=== PATIENT | male | born 1960 | race African-American/Black ===

== ENCOUNTER → 2017-07-14 14:29 | Outpatient (CLI) | payer BC, SELFPAY ==
--- NOTE | 2017-07-14 14:34 | EKG12_ITS ---
Test Reason : PREOP Blood Pressure : / mmHG Vent. Rate : 064 BPM Atrial Rate : 064 BPM P-R Int : 192 ms QRS Dur : 104 ms QT Int : 410 ms P-R-T Axes : 051 -47 044 degrees QTc Int : 422 ms Sinus rhythm with sinus arrhythmia with Premature ventricular complexes or Fusion complexes Left axis deviation Inferior infarct , age undetermined Abnormal ECG Confirmed by FREDRICK STOCKTON MD ([id number]), fashion editor MAYDA GLASS ([id number]) on 07/15/2017 3:30:55 PM Referred By: ASHLEY RAMSAY Confirmed By:FREDRICK STOCKTON MD
== END ==
PROVIDERS: Family Provider Internal Medicine; PCP Internal Medicine; Visit Provider Nurse Practitioner Family
DX: Z01.818 Encounter for other preprocedural examination (principal); I10 Essential (primary) hypertension; Z79.899 Other long term (current) drug therapy
CPT/HCPCS: 93005

== ENCOUNTER → 2017-07-15 06:44 | Outpatient (CLI) | payer BC, SELFPAY ==
[2017-07-15 08:48] LABS: Anion Gap 9 (5-15); BUN 17 mg/dL (7-18); BUN/Creat Ratio 16.5 RATIO (10-20); Calcium,Total 8.9 mg/dL (8.5-10.1); Chloride 105 mmol/L (98-107); Creatinine, Serum 1.03 mg/dL (0.70-1.30); EST Glomerular Filtration Rate 79 mL/min (>60); Est Glom Filt Rate - Afr Amer 95 mL/min (>60); Glucose 106 mg/dL (74-106); Potassium 3.6 mmol/L (3.5-5.1); Sodium Level 140 mmol/L (136-145)
== END ==
PROVIDERS: Family Provider Internal Medicine; PCP Internal Medicine; Visit Provider Nurse Practitioner Family
DX: E87.6 Hypokalemia (principal)
CPT/HCPCS: 36415; 80048

== ENCOUNTER → 2017-09-09 15:43 | Outpatient (CLI) | payer BC, SELFPAY ==
[2017-09-09 16:55] LABS: PSA,Total - Annual Screen 9.46 ng/mL (0.00-4.00)
== END ==
PROVIDERS: Family Provider Internal Medicine; PCP Internal Medicine
DX: R97.20 Elevated prostate specific antigen [PSA] (principal)
CPT/HCPCS: 36415; 84153; G0103

== ENCOUNTER → 2018-05-20 08:02 | Outpatient (CLI) | payer BC, SELFPAY ==
[2017-10-11 15:37] VITALS: BMI 35.1
== END ==
PROVIDERS: Family Provider Internal Medicine; PCP Internal Medicine
DX: R97.20 Elevated prostate specific antigen [PSA] (principal)
CPT/HCPCS: 36415; 84153

== ENCOUNTER → 2018-05-27 10:17 | Outpatient (CLI) | payer BC, SELFPAY ==
[2018-05-23 09:24] VITALS: BMI 35.9
[2018-05-27 12:09] LABS: AST(SGOT) 19 U/L (15-37); Alanine Aminotransfer ALT/SGPT 28 U/L (16-61); Albumin, Serum 3.9 g/dL (3.2-5.0); Alkaline Phosphatase 67 U/L (45-117); Bilirubin, Direct 0.12 mg/dL (0.00-0.30); Cholesterol 187 mg/dL (200); Globulin 3.8 g/dL (2.2-4.2); High Density Lipoprotein 38 mg/dL; Protein, Total 7.7 g/dL (6.4-8.2); Triglycerides 148 mg/dL; Very Low Density Lipoprotein 30 mg/dL (5-40)
== END ==
PROVIDERS: Family Provider Internal Medicine; PCP Internal Medicine; Referring Provider Internal Medicine Cardiovascular Disease; Visit Provider Internal Medicine Cardiovascular Disease
DX: E78.5 Hyperlipidemia, unspecified (principal)
CPT/HCPCS: 36415; 80061; 80076

== ENCOUNTER → 2018-05-30 12:21 | Outpatient (CLI) | payer BC, SELFPAY ==
[2018-05-23 09:24] VITALS: BMI 35.9
--- NOTE | 2018-05-30 12:23 | STE_ITS ---
Reason For Study: Dyspnea, HTN Stress Results Protocol: Félix Protocol Maximum Predicted HR: 161 bpm Target HR: 137 bpm % Maximum Predicted HR: 96 % DurationHeart Rate Stage (mm:ss) (bpm) BP Comment Baseline 70 124/88No Chest Pain Félix Protocol Stage I 3:00 115 136/74No Chest Pain Félix Protocol Stage II 3:00 142 172/78No Chest Pain; Mild Dyspnea Félix Protocol Stage III 3:00 155 180/76No Chest Pain; Moderate Dyspnea Félix Protocol Stage IV 0:03 142 / No Chest Pain; Moderate Dyspnea Recovery 96 110/70No Chest Pain Stress Duration: 9:03 mm:ss Maximum Stress HR: 155 bpm METS: 10 Baseline Echocardiogram Findings The estimated ejection fraction is 65 %. Stress Echo Wall motion Data Resting WM Intermediate WM Stress WM Resting Wall Motion Wall Motion Stress No regional wall motion No regional wall motion abnormalities noted. abnormalities noted. EKG Data Normal intervals are noted. The patient exercised according to the regular Félix protocol for a total duration of 9:03. The maximum heart rate attained was 160 beats per minute. This was 99% of maximum predicted heart rate. The patient exercised into stage 4 of the Félix protocol. During stress, there were no ST or T wave changes noted to suggest ischemia. No clinical angina was noted. Interpretation Summary The estimated ejection fraction is 65 %. Normal, adequate, treadmill echocardiogram. Negative for ischemia by EKG and echocardiographic criteria. No anginal symptoms noted. Appropriate blood pressure response to exercise. Average exercise capacity for age. Patient did however develop frequent PVCs during exercise and into recovery. Two ventricular couplets noted. Ventricular trigeminy noted as well. Test terminated due to dyspnea. Final LVEF is 75%. No complications. Ordering Physician: Patrick Carnes Referring Physician: Patrick Carnes Performed By: Johanna Marte RDCS
== END ==
PROVIDERS: Family Provider Internal Medicine; PCP Internal Medicine; Referring Provider Internal Medicine Cardiovascular Disease; Visit Provider Internal Medicine Cardiovascular Disease
DX: I10 Essential (primary) hypertension (principal); I31.3 Pericardial effusion (noninflammatory); R06.00 Dyspnea, unspecified
CPT/HCPCS: 93017; 93350

== ENCOUNTER → 2018-06-02 09:24 | Outpatient (CLI) | payer BC, SELFPAY ==
[2018-05-23 09:24] VITALS: BMI 35.9
--- NOTE | 2018-06-02 09:35 | RAD_ITS ---
STUDY: X-RAY CHEST REASON FOR EXAM: Male, 57 years old. Short of breath. Abnormal stress test. TECHNIQUE: Single AP portable view of the chest. COMPARISON: 02/06/2014. FINDINGS: The lungs are clear and expanded. There is no demonstrated pleural abnormality. Normal size heart. Normal mediastinum and gelacio. Normal visualized pulmonary arteries. Normal visualized aortic arch and descending thoracic aorta. Normal visualized thoracic spine. Normal visualized ribs, clavicles, and shoulders. There is no demonstrated abnormality of the visualized soft tissue structures of the upper abdomen. RAD/Chest PA and Lateral IMPRESSION: Normal x-ray examination of the chest. Electronically Signed: Santiago Mg MD at 18:39 EST , Service support ,
[2018-06-02 10:05] LABS: Absolute Lymphocyte Count 2.46 X10^3/ul (0.83-4.51); Absolute Neutrophil Count 6.4 X10^3/uL (2.0-7.7); Basophil# 0.04 X10^3/uL; Basophil% 0.4 % (0-1); Eosinophil# 0.14 X10^3/uL; Eosinophils% 1.4 % (0-5); Hematocrit 41.1 % (40-54); Hemoglobin 13.4 g/dl (13.0-16.5); Lymphocyte # 2.46 X10^3/ul (4.0); Lymphocyte % 24.8 % (19-41); Mean Corp Hgb Conc 32.6 g/gl (32-36); Mean Corpuscular Hgb 27.7 pg (27.0-32.0); Mean Corpuscular Volume 85.1 fL (80-94); Mean Platelet Vol. 9.7 fl (6.2-12.0); Monocyte# 0.85 X10^3/uL; Monocyte% 8.6 % (0-10); Neutrophil # 6.38 X10^3/uL (2.7-7.7); Neutrophil % 64.5 % (47-70); Platelet Count 305 K/mm3 (150-450); RBC Distribution Width CV 14.2 % (11.6-14.6); RBC Distribution Width SD 44.3 fl (35.1-43.9); Red Blood Count 4.83 M/mm3 (4.6-6.2); White Blood Count 9.9 K/mm3 (4.4-11.0)
[2018-06-02 10:07] LABS: POSITIVE COUNT NO; POSITIVE DIFFERENTIAL NO; POSITIVE MORPHOLOGY NO
[2018-06-02 10:24] LABS: International Normalized Ratio 1.1
[2018-06-02 10:25] LABS: Partial Thromboplast Time 34.1 Seconds (24.1-36.2)
[2018-06-02 10:26] LABS: Anion Gap 9 (5-15); BUN 11 mg/dL (7-18); BUN/Creat Ratio 9.9 RATIO (10-20); Chloride 105 mmol/L (98-107); Creatinine, Serum 1.11 mg/dL (0.70-1.30); EST Glomerular Filtration Rate 72 mL/min (>60); Est Glom Filt Rate - Afr Amer 87 mL/min (>60); Glucose 99 mg/dL (74-106); Potassium 3.5 mmol/L (3.5-5.1); Sodium Level 141 mmol/L (136-145)
== END ==
PROVIDERS: Family Provider Internal Medicine; PCP Internal Medicine; Referring Provider Nurse Practitioner Family; Visit Provider Nurse Practitioner Family
DX: Z01.810 Encounter for preprocedural cardiovascular examination (principal); I49.3 Ventricular premature depolarization; R94.39 Abnormal result of other cardiovascular function study; R06.02 Shortness of breath
CPT/HCPCS: 36415; 71046; 80048; 85025; 85610; 85730

== ENCOUNTER 2018-06-13 08:03 | Day surgery (SDC) | payer BC, SELFPAY ==
[2018-05-23 09:24] VITALS: BMI 35.9
[2018-06-10 13:00] VITALS: BMI 35.9
--- NOTE | 2018-06-13 09:48 | CL.D_ITS ---
Patient Name: MARY CARBALLO Study Date: 06/13/2018 Performing: Patrick Carnes MD Ht: 70.86 inches 180 cm : 1960 Wt: 257.94 lbs 117 kg Age: 57 Gender: male BSA: 2.35 PROCEDURE(S) PERFORMED [id number]/LV CLINICAL PROFILE AND INDICATIONS Indications: Suspected CAD, Cardiac Arrythmia, Evaluation for Exercise Clearance Heart Failure: None Stress/Imaging Stress Echocardiogram: Yes Result: NegativeStress Echocardiogram: Negative Angina Classification Anginal Classification w/in 2 Weeks: No symptoms CAD Presentations: Other: Dyspnea on exertion, PVCs. Comorbidities/Risk Factors: Hypertension Dyslipidemia CONCLUSIONS Normal LV size, wall motion,and systolic function Non obstructive coronary arteries RECOMMENDATIONS Risk factor modification ASA Indefinitely Management as per referring Communications Coordinator D/c plavix, start lipitor 20mg po qhs, PFTs. Doubtful pericardial constriction given pericardial effusion event was over 5 years ago and no eviden ce of pericardial thickening on 2D echo. Manual sheath removal. DESCRIPTION OF PROCEDURE The patient arrived to the procedure lab. The risks and benefits of the procedure as well as a full d escription of our services here and current unavailability of surgical backup were fully explained to the patient and/or their significant other prior to the catheterization. The Timeout was completed, verifying the correct patient and procedure. The patient's procedural site was prepped and draped in the usual fashion. Local anesthetic was given subcutaneously to right groin region with Lidocaine 2%. Using a modified Seldinger technique, arterial access was obtained via the right femoral artery, a 4 Fr sheath was inserted Left Coronary Artery selective angiography was performed in multiple views us ing a 4 Fr. JL5 catheter. Right Coronary Artery selective angiography was then performed in multiple views using a 4 Fr. 3DRC catheter. Left Ventriculography was performed in SMITH projection using a 4 Fr . Pigtail catheter. LV to AO pullback pressures were then recorded.The arterial sheath was pulled and manual compression applied until hemostasis is achieved. CORONARY ANGIOGRAPHY DOMINANCE: Right Dominant LEFT MAIN: Angiographically normal LEFT ANTERIOR DECENDING ARTERY: MID LAD: Mild luminal irregularities less than 30% CIRCUMFLEX ARTERY: Angiographically normal RIGHT CORONARY ARTERY: Angiographically normal RT PDA: Proximal - Angiographically normal COMPLICATIONS No Complications PROCEDURE MEDICATIONS Oxygen: 2 L/min via nasal cannula SUMMARY OF HEMODYNAMIC DATA Time AIR REST ECG 08:29:20 AO 125/67 (88) SA 09:28:56 LV 133/-12, 14 09:35:34 LV 127/-13, 17 09:35:40 LV 132/-14, 17 09:36:42 LV 135/-11, 23 09:36:49 LVp 142/-11, 19 09:36:57 AOp 155/79 (109) 09:37:02 Signed By Patrick Carnes MD On 06/13/2018 9:48:18 AM Patrick Carnes MD
== END 2018-06-13 14:15 | disposition home or self-care (01) ==
LOC: CLSP 08:04
PROVIDERS: Family Provider Internal Medicine; PCP Internal Medicine; Referring Provider Internal Medicine Cardiovascular Disease; Visit Provider Internal Medicine Cardiovascular Disease
DX: R06.09 Other forms of dyspnea (principal); I49.3 Ventricular premature depolarization; I10 Essential (primary) hypertension; E78.5 Hyperlipidemia, unspecified; I31.3 Pericardial effusion (noninflammatory); M54.9 Dorsalgia, unspecified; G89.29 Other chronic pain; N40.0 Benign prostatic hyperplasia without lower urinary tract symptoms; Z79.82 Long term (current) use of aspirin; Z79.899 Other long term (current) drug therapy; Z87.891 Personal history of nicotine dependence
CPT/HCPCS: 93458; J7040; C1769; C1894; Q9967

== ENCOUNTER → 2018-06-17 07:52 | Outpatient (CLI) | payer BC, SELFPAY ==
[2018-06-10 13:00] VITALS: BMI 35.9
--- NOTE | 2018-06-19 09:58 | PFT ---
INTRODUCTION: The patient is a 58-year-old male that presents for pulmonary function studies secondary to a diagnosis of dyspnea on exertion. Respiratory therapy reports good patient effort. Bronchodilators were used during testing. INTERPRETATION: Forced expiration spirometry demonstrates no evidence of a large airways obstructive ventilatory defect. There was no significant response to aerosolized bronchodilators, based upon strict ATS criteria. Spirograms are of good quality and plateau normally. The respiratory flow volume loop appears normal. Body plethysmography was performed and reveals lung volumes to be within normal limits. Diffusing capacity by single breath CO is also within normal limits at 93% of predicted. IMPRESSION: Grossly normal pulmonary function studies.
== END ==
PROVIDERS: Family Provider Internal Medicine; PCP Internal Medicine; Referring Provider Internal Medicine Cardiovascular Disease; Visit Provider Internal Medicine Cardiovascular Disease
DX: R06.09 Other forms of dyspnea (principal)
CPT/HCPCS: 94060; 94726; 94729

== ENCOUNTER → 2019-01-17 07:32 | Outpatient (CLI) | payer BC, SELFPAY ==
[2018-06-10 13:00] VITALS: BMI 35.9
[2019-01-17 09:47] LABS: AST(SGOT) 17 U/L (15-37); Alanine Aminotransfer ALT/SGPT 29 U/L (16-61); Albumin, Serum 3.8 g/dL (3.2-5.0); Alkaline Phosphatase 77 U/L (45-117); Bilirubin, Direct 0.11 mg/dL (0.00-0.30); Cholesterol 201 mg/dL (200); Globulin 3.8 g/dL (2.2-4.2); High Density Lipoprotein 41 mg/dL; Protein, Total 7.6 g/dL (6.4-8.2); Triglycerides 186 mg/dL; Very Low Density Lipoprotein 37 mg/dL (5-40)
== END ==
PROVIDERS: Family Provider Internal Medicine; PCP Internal Medicine; Referring Provider Internal Medicine Cardiovascular Disease; Visit Provider Internal Medicine Cardiovascular Disease
DX: I25.10 Atherosclerotic heart disease of native coronary artery without angina pectoris (principal); E78.5 Hyperlipidemia, unspecified
CPT/HCPCS: 36415; 80061; 80076

== ENCOUNTER → 2019-01-27 14:47 | Outpatient (CLI) | payer BC, SELFPAY ==
[2019-01-19 15:14] VITALS: BMI 35.9
--- NOTE | 2019-01-27 14:50 | ECHOD_ITS ---
Reason For Study: PHTN Procedure This was a 2D Doppler, Color Flow transthoracic echocardiogram. Exam performed in department. Left Ventricle Mild concentric left ventricular hypertrophy. The estimated ejection fraction is 65 %. Normal diastology for age. No regional wall motion abnormalities noted. Right Ventricle Normal size and thickness. Normal systolic function. Atria Normal left atrium. Normal right atrium. Normal atrial septum. Mitral Valve The mitral valve is structurally normal. No prolapse or stenosis seen. Tricuspid Valve Normal tricuspid valve. Trivial tricuspid valve insufficiency. Right ventricular systolic pressure estimated to be 23 mmHg. Aortic Valve Normal aortic valve. Trisinus/trileaflet aortic valve. Pulmonic Valve Normal pulmonic valve. Great Vessels Normal aortic root. Normal arch. Normal inferior vena cava. Inferior vena cava collapse with sniff. Pericardium/Pleural No pericardial effusion. MMode/2D Measurements & Calculations LVIDd: 5.0 cm IVSd: 1.4 cm Ao root diam: 3.5 cm LVIDs: 3.2 cm LVPWd: 1.2 cm RVDd: 4.3 cm FS: 35.4 % LAV(MOD-bp): 48.7 ml LVAd ap4: 31.4 cm2 SV(MOD-sp4): 50.6 ml LAV(MOD-bp) Indexed: 21.1 ml/m2 EDV(MOD-sp4): 93.2 ml LAV(MOD-sp2): 48.8 ml EDV(sp4-el): 95.4 ml LAV(MOD-sp4): 48.9 ml LVAs ap4: 19.2 cm2 ESV(MOD-sp4): 42.6 ml ESV(sp4-el): 42.6 ml EF(MOD-sp4): 54.3 % EF(sp4-el): 55.3 % SV(sp4-el): 52.7 ml LA A4 area: 17.5 cm2 LA dimension(2D): 3.9 cm RA A4 area: 10.6 cm2 Doppler Measurements & Calculations MV E max ben: 61.4 cm/sec Lat Peak E' Ben: 10.6 cm/sec Med Peak E' Ben: 9.2 cm/sec MV A max ben: 67.6 cm/sec E/E' lat: 5.8 E/E' med: 6.7 MV E/A: 0.91 Ao V2 max: 115.2 cm/sec LV V1 max: 102.2 cm/sec PA V2 max: 98.2 cm/sec Ao max P.3 mmHg LV V1 max P.2 mmHg Ao V2 mean: 91.6 cm/sec Ao mean P.5 mmHg Ao V2 VTI: 24.2 cm TR max ben: 213.3 cm/sec TR max P.2 mmHg Interpretation Summary The estimated ejection fraction is 65 %. Normal diastology for age. Mild concentric left ventricular hypertrophy. Trivial tricuspid valve insufficiency. Right ventricular systolic pressure estimated to be 23 mmHg. In comparison to echo report dated 02/22/2014, LV function has remianed the same and preicardial effusion has completely resolved. Ordering Physician: Patrick Carnes Referring Physician: Fatuma Jung Performed By: Ayleen Michelle, WANDA, RVT
== END ==
PROVIDERS: Family Provider Internal Medicine; PCP Internal Medicine; Referring Provider Internal Medicine Cardiovascular Disease; Visit Provider Internal Medicine Cardiovascular Disease
DX: I27.20 Pulmonary hypertension, unspecified (principal); I25.10 Atherosclerotic heart disease of native coronary artery without angina pectoris; I31.3 Pericardial effusion (noninflammatory); G47.33 Obstructive sleep apnea (adult) (pediatric)
CPT/HCPCS: 93306

== ENCOUNTER → 2019-06-15 08:14 | Outpatient (CLI) | payer BC, SELFPAY ==
[2019-06-14 14:08] VITALS: BMI 35.1
[2019-06-15 12:31] LABS: Absolute Lymphocyte Count 2.29 X10^3/uL (0.83-4.51); Absolute Neutrophil Count 6.7 X10^3/uL (2.0-7.7); Eosinophil# 0.39 X10^3/uL; Eosinophils% 3.8 % (0-5); Hematocrit 41.1 % (40-54); Hemoglobin 13.1 g/dL (13.0-16.5); Lymphocyte # 2.29 X10^3/ul (4.0); Lymphocyte % 22.1 % (19-41); Mean Corp Hgb Conc 31.9 g/dL (32-36); Mean Corpuscular Hgb 27.1 pg (27.0-32.0); Mean Corpuscular Volume 84.9 fL (80-94); Mean Platelet Vol. 10.2 fl (6.2-12.0); Monocyte# 0.84 X10^3/uL; Monocyte% 8.1 % (0-10); NRBC Flagged by Analyzer 0 % (0-5); Neutrophil # 6.72 X10^3/uL (2.7-7.7); Neutrophil % 64.6 % (47-70); Platelet Count 323 K/mm3 (150-450); RBC Distribution Width CV 14.2 % (11.6-14.6); RBC Distribution Width SD 43.8 fl (35.1-43.9); Red Blood Count 4.84 M/mm3 (4.6-6.2); White Blood Count 10.4 K/mm3 (4.4-11.0)
[2019-06-15 12:58] LABS: AST(SGOT) 16 U/L (15-37); Alanine Aminotransfer ALT/SGPT 29 U/L (16-61); Albumin, Serum 3.8 g/dL (3.2-5.0); Alkaline Phosphatase 72 U/L (45-117); Anion Gap 7 (5-15); BUN 11 mg/dL (7-18); BUN/Creat Ratio 10.1 RATIO (10-20); Calcium,Total 9.2 mg/dL (8.5-10.1); Chloride 106 mmol/L (98-107); Cholesterol 186 mg/dL (200); Creatinine, Serum 1.09 mg/dL (0.70-1.30); EST Glomerular Filtration Rate 73 mL/min (>60); Est Glom Filt Rate - Afr Amer 88 mL/min (>60); Glucose 101 mg/dL (74-106); High Density Lipoprotein 38 mg/dL; Potassium 3.5 mmol/L (3.5-5.1); Protein, Total 7.8 g/dL (6.4-8.2); Sodium Level 140 mmol/L (136-145); Triglycerides 134 mg/dL; Very Low Density Lipoprotein 27 mg/dL (5-40)
== END ==
PROVIDERS: PCP Internal Medicine; Referring Provider Nurse Practitioner Family; Visit Provider Nurse Practitioner Family
DX: Z00.00 Encounter for general adult medical examination without abnormal findings (principal); I10 Essential (primary) hypertension; E78.5 Hyperlipidemia, unspecified
CPT/HCPCS: 36415; 80053; 80061; 84153; 84443; 85025; G0103

== ENCOUNTER → 2020-02-05 06:21 | Outpatient (CLI) | payer BC, SELFPAY ==
[2019-06-14 14:08] VITALS: BMI 35.1
== END ==
PROVIDERS: PCP Internal Medicine; Referring Provider Urology; Visit Provider Urology
DX: R97.20 Elevated prostate specific antigen [PSA] (principal)
CPT/HCPCS: 36415; 84153

== ENCOUNTER → 2020-03-05 | Outpatient (CLI) | payer BC, SELFPAY ==
[2020-02-05 10:40] VITALS: BMI 35.1
--- NOTE | 2020-03-05 | IMM_PTH ---
PATIENT: MARY CARBALLO LOC: [facility] U#:[id number] AGE/SX: 59/M ROOM: RE03/05/[address]: Dr. Willy Olivas MD : 1960 BED: DIS: 03/05/2020 SPEC #: [id number] RECD: 03/06/20 12:24 STATUS: JOHNNY REQ #: [id number] VIC: 03/05/20 00:[address]: Willy Olivas DEPT: IMMUNOHISTOCHEMISTRY RECD BY: Earlene Llaams ENTERED: 03/06/20 12:28 SP TYPE: IMMUNO OTHR DR: Dr. Fatuma Jung MD Tissues: F - PROSTATE LEFT Procedures: P40 (add) 34BE12 (initial) PHYSICIAN & INSTITUTION [place] [id number] SPECIMEN INFORMATION: Tissue Source: F - Left prostate, base, core biopsy Clinical Info: Malignant neoplasm of prostate Specimen Number: [id number] CPT code: 64965, 24124 METHODOLOGY: Deparaffinized sections of prefer/formalin-fixed tissue or PAP/DQ stained slides are incubated with monoclonal/polyclonal antibodies/oligonucleotide probes. Localization is made via biotin free immunoperoxidase method. Appropriate controls are performed and reacted as expected. Results on target cell population are indicated in the following table: RESULTS: ANTIBODY / CLONE RESULT Block F P40 (BC28) positive 34BE12 (34BE12) positive These tests were developed and their performance characteristics determined by [facility]. They may not have been cleared or approved by the U.S. Food and Drug Administration. The FDA has determined that such clearance or approval is not necessary. The above immunohistochemical/dualISH markers are ordered and reviewed by the Pathologist. INTERPRETATION: F. Left prostate, base, core biopsy: Benign prostatic tissue. AM:stan 03/07/20
--- NOTE | 2020-03-05 08:00 | PROSBIL_PTH ---
PATIENT: MARY CARBALLO LOC: [facility] U#:[id number] AGE/SX: 59/M ROOM: RE03/05/[address]: Dr. Willy Olivas MD : 1960 BED: DIS: 03/05/2020 SPEC #: [id number] RECD: 03/05/20 11:10 STATUS: JOHNNY SANGITA #: [id number] VIC: 03/05/20 08:[address]: Willy Olivas DEPT: SURGICAL PATHOLOGY RECD BY: Eva Garcia ENTERED: 03/05/20 11:11 SP TYPE: PROST BX FLORI DR: Dr. Fatuma Jung MD Tissues: A - PROSTATE RIGHT B - PROSTATE RIGHT C - PROSTATE RIGHT D - PROSTATE LEFT E - PROSTATE LEFT F - PROSTATE LEFT Procedures: PROSTATE BX HEADER OPERATION: Prostate biopsy PRE-OP DIAGNOSIS: Malignant neoplasm of prostate TISSUE SUBMITTED: A - Right apex, B - Right mid, C - Right base, D - Left apex, E - Left mid, F - Left base MICROSCOPIC DIAGNOSIS A. Right prostate, apex, core biopsy: Mild chronic inflammation and focal acute inflammation. B. Right prostate, mid, core biopsy: Focal high-grade prostatic intraepithelial neoplasia (HGPIN). Mild chronic inflammation. C. Right prostate, base, core biopsy: Focal high-grade prostatic intraepithelial neoplasia (HGPIN). Mild chronic inflammation. D. Left prostate, apex, core biopsy: Mild chronic inflammation and focal acute inflammation. E. Left prostate, mid, core biopsy: Chronic inflammation with focal acute inflammation. Focal glandular atrophy. F. Left prostate, base, core biopsy: Chronic inflammation with focal acute inflammation. See comment. AM:stan 03/06/20 COMMENT F. Immunohistochemistry ([id number]) supports the above diagnosis. MICROSCOPIC DESCRIPTION Slides are reviewed. GROSS DESCRIPTION A - Received is one container designated prostate, right apex. The specimen consists of two elongated fragments of light cash-white soft tissue measuring 1.2 and 1 cm in length and 0.1 cm in diameter. The specimen is totally submitted in one cassette. B - Received is one container designated prostate, right mid. The specimen consists of two elongated fragments of light cash-white soft tissue measuring 1.2 and 1.5 cm in length and 0.1 cm in diameter. The specimen is totally submitted in one cassette. C - Received is one container designated prostate, right base. The specimen consists of two elongated fragments of light cash-white soft tissue each measuring 1.5 cm in length and 0.1 cm in diameter. The specimen is totally submitted in one cassette. D - Received is one container designated prostate, left apex. The specimen consists of two elongated fragments of light cash-white soft tissue each measuring 1.2 cm in length and 0.1 cm in diameter. The specimen is totally submitted in one cassette. E - Received is one container designated prostate, left mid. The specimen consists of two elongated fragments of light cash-white soft tissue each measuring 1.3 cm in length and 0.1 cm in diameter. The specimen is totally submitted in one cassette. F - Received is one container designated prostate, left base. The specimen consists of two elongated fragments of light cash-white soft tissue each measuring 1.4 cm in length and 0.1 cm in diameter. The specimen is totally submitted in one cassette. / SJ:rg 03/05/20 TC:2 CPT: 40273 x6
== END | disposition home or self-care (01) ==
LOC: LABSPEC 10:41
PROVIDERS: PCP Internal Medicine; Visit Provider Urology
DX: C61 Malignant neoplasm of prostate (principal)
CPT/HCPCS: 88305; 88341; 88342; G0416

== ENCOUNTER 2020-07-24 16:11 | Outpatient (RCR) | payer BC, SELFPAY ==
[2020-02-05 10:40] VITALS: BMI 35.1
== END 2020-09-24 23:59 ==
LOC: IMMUN 16:11
PROVIDERS: PCP Internal Medicine; Visit Provider Family Medicine
DX: Z23 Encounter for immunization (principal)
CPT/HCPCS: 0001A; 0002A; 91300

== ENCOUNTER → 2020-09-18 08:01 | Outpatient (CLI) | payer BC, SELFPAY ==
[2020-02-05 10:40] VITALS: BMI 35.1
== END ==
PROVIDERS: PCP Internal Medicine; Referring Provider Urology; Visit Provider Urology
DX: R97.20 Elevated prostate specific antigen [PSA] (principal)
CPT/HCPCS: 36415; 84153

== ENCOUNTER → 2020-11-25 07:41 | Outpatient (CLI) | payer BC, SELFPAY ==
[2020-11-22 11:23] VITALS: BMI 33.5
[2020-11-25 09:13] LABS: AST(SGOT) 19 U/L (15-37); Alanine Aminotransfer ALT/SGPT 23 U/L (16-61); Albumin, Serum 3.9 g/dL (3.2-5.0); Alkaline Phosphatase 65 U/L (45-117); Cholesterol 188 mg/dL (200); Globulin 3.7 g/dL (2.2-4.2); High Density Lipoprotein 41 mg/dL; Protein, Total 7.6 g/dL (6.4-8.2); Triglycerides 154 mg/dL; Very Low Density Lipoprotein 31 mg/dL (5-40)
== END ==
PROVIDERS: PCP Internal Medicine; Visit Provider Internal Medicine Cardiovascular Disease
DX: I25.10 Atherosclerotic heart disease of native coronary artery without angina pectoris (principal); E78.5 Hyperlipidemia, unspecified
CPT/HCPCS: 36415; 80061; 80076

== ENCOUNTER → 2021-01-13 09:18 | Outpatient (CLI) | payer BC, SELFPAY ==
[2021-01-13 12:12] LABS: Absolute Lymphocyte Count 2.08 X10^3/uL (0.83-4.51); Absolute Neutrophil Count 6.8 X10^3/uL (2.0-7.7); Basophil# 0.11 X10^3/uL; Basophil% 1.1 % (0-1); Eosinophil# 0.22 X10^3/uL; Eosinophils% 2.2 % (0-5); Hematocrit 42.6 % (40-54); Hemoglobin 13.7 g/dL (13.0-16.5); Lymphocyte # 2.08 X10^3/ul (0.83-4.51); Lymphocyte % 20.7 % (19-41); Mean Corp Hgb Conc 32.2 g/dL (32-36); Mean Corpuscular Hgb 27.8 pg (27.0-32.0); Mean Corpuscular Volume 86.6 fL (80-94); Mean Platelet Vol. 10.3 fl (6.2-12.0); Monocyte# 0.76 X10^3/uL; Monocyte% 7.6 % (0-10); NRBC Flagged by Analyzer 0 % (0-5); Neutrophil # 6.82 X10^3/uL (2.7-7.7); Neutrophil % 67.9 % (47-70); Platelet Count 327 K/mm3 (150-450); RBC Distribution Width CV 14.1 % (11.6-14.6); RBC Distribution Width SD 45.4 fl (35.1-43.9); Red Blood Count 4.92 M/mm3 (4.6-6.2)
[2021-01-13 12:25] LABS: Anion Gap 8 (5-15); BUN 14 mg/dL (7-18); BUN/Creat Ratio 13.3 RATIO (10-20); Calcium,Total 9.1 mg/dL (8.5-10.1); Chloride 104 mmol/L (98-107); Creatinine, Serum 1.05 mg/dL (0.70-1.30); EST Glomerular Filtration Rate 76 mL/min (>60); Est Glom Filt Rate - Afr Amer 92 mL/min (>60); Glucose 108 mg/dL (74-106); Potassium 3.7 mmol/L (3.5-5.1); Sodium Level 138 mmol/L (136-145)
== END ==
PROVIDERS: PCP Internal Medicine; Visit Provider Internal Medicine
DX: Z00.00 Encounter for general adult medical examination without abnormal findings (principal)
CPT/HCPCS: 36415; 80048; 85025

== ENCOUNTER → 2021-04-16 | Outpatient (CLI) | payer BC, SELFPAY | END | disposition home or self-care (01) | LOC: LABSPEC 15:20 | PROVIDERS: PCP Internal Medicine; Referring Provider Physician Assistant; Visit Provider Physician Assistant | DX: U07.1 COVID-19 (principal) | CPT/HCPCS: 87635; U0005; U0003 ==

== ENCOUNTER 2021-04-22 08:36 | Outpatient (CLI) | payer BC, SELFPAY | END 2021-04-22 23:59 | disposition short-term general hospital (02) | LOC: LAB 08:39 | PROVIDERS: PCP Internal Medicine; Referring Provider Urology; Visit Provider Urology | DX: R97.20 Elevated prostate specific antigen [PSA] (principal) | CPT/HCPCS: 36415; 84153; G0103 ==

== ENCOUNTER 2021-06-21 09:26 | Outpatient (CLI) | payer BC, SELFPAY ==
[2021-06-21 10:35] LABS: AST(SGOT) 22 U/L (15-37); Alanine Aminotransfer ALT/SGPT 27 U/L (16-61); Albumin, Serum 3.8 g/dL (3.2-5.0); Alkaline Phosphatase 67 U/L (45-117); Cholesterol 190 mg/dL (200); Globulin 4.1 g/dL (2.2-4.2); High Density Lipoprotein 38 mg/dL; Protein, Total 7.9 g/dL (6.4-8.2); Triglycerides 144 mg/dL; Very Low Density Lipoprotein 29 mg/dL (5-40)
== END 2021-06-21 23:59 | disposition home or self-care (01) ==
LOC: LAB 09:27
PROVIDERS: PCP Internal Medicine; Referring Provider Internal Medicine Cardiovascular Disease; Visit Provider Internal Medicine Cardiovascular Disease
DX: E78.5 Hyperlipidemia, unspecified (principal); I25.10 Atherosclerotic heart disease of native coronary artery without angina pectoris
CPT/HCPCS: 36415; 80061; 80076

== ENCOUNTER 2021-07-14 12:52 | Outpatient (CLI) | payer BC, SELFPAY ==
--- NOTE | 2021-07-14 12:53 | ART_ITS ---
Reason For Study: Claudication Procedure A bilateral lower extremity continuous wave Doppler with analog waveform analysis,segmental pressures,and ankle brachial indexes without exercise. Left Segmental Pressures Left brachial= 153mmHg. Left thigh = 206mmHg. Left calf = 140mmHg. Left posterior tibial artery = 141mmHg. Left dorsalis pedis artery = 144mmHg. Left digit = 133 mmHg. The left dorsalis pedis waveforms are triphasic. The left posterior tibial artery waveforms are triphasic. Right Segmental Pressures Right brachial= 154mmHg. Right posterior tibial artery = 165mmHg. Right dorsalis pedis artery = 168mmHg. Right digit = 132 mmHg. The right dorsalis pedis waveforms are triphasic. The right posterior tibial artery waveforms are triphasic. Indices The right ankle brachial index by the dorsalis pedis is 1.09. The right ankle brachial index by the posterior tibial artery is 1.07. The right digital-brachial index is 0.86. The left ankle brachial index by the dorsalis pedis is 0.94. The left ankle brachial index by the posterior tibial artery is 0.92. The left digital-brachial index is 0.86. VL/Lower Ext Art Exam w/o Exercis Interpretation Summary Normal right lower extremity ankle brachial indices and triphasic waveforms. Mild disease left lower extremity with triphasic doppler waveforms and minimall y depressed ankle brachial indices Normal bilateral digital brachial indices Ordering Physician: Nu Ye Referring Physician: Fatuma Jung Performed By: Marivel Hansen RVT
== END 2021-07-14 23:59 | disposition home or self-care (01) ==
LOC: CVS 12:52
PROVIDERS: PCP Internal Medicine; Referring Provider Nurse Practitioner Gerontology; Visit Provider Nurse Practitioner Gerontology
DX: I73.9 Peripheral vascular disease, unspecified (principal)
CPT/HCPCS: 93923

== ENCOUNTER → 2021-12-03 | Outpatient (CLI) | payer BC, SELFPAY ==
[2021-12-03 12:48] LABS: Absolute Lymphocyte Count 2.31 X10^3/uL (0.83-4.51); Absolute Neutrophil Count 6.3 X10^3/uL (2.0-7.7); Basophil# 0.11 X10^3/uL; Basophil% 1.1 % (0-1); Eosinophil# 0.33 X10^3/uL; Eosinophils% 3.3 % (0-5); Hematocrit 40.7 % (40-54); Lymphocyte # 2.31 X10^3/ul (0.83-4.51); Mean Corp Hgb Conc 31.9 g/dL (32-36); Mean Corpuscular Hgb 27.4 pg (27.0-32.0); Mean Corpuscular Volume 85.9 fL (80-94); Mean Platelet Vol. 10.2 fl (6.2-12.0); Monocyte# 0.98 X10^3/uL; Monocyte% 9.8 % (0-10); NRBC Flagged by Analyzer 0 % (0-5); Neutrophil # 6.27 X10^3/uL (2.7-7.7); Neutrophil % 62.4 % (47-70); Platelet Count 346 K/mm3 (150-450); RBC Distribution Width CV 14.2 % (11.6-14.6); RBC Distribution Width SD 44.6 fl (35.1-43.9); Red Blood Count 4.74 M/mm3 (4.6-6.2)
[2021-12-03 13:28] LABS: AST(SGOT) 16 U/L (15-37); Alanine Aminotransfer ALT/SGPT 21 U/L (16-61); Albumin, Serum 3.8 g/dL (3.2-5.0); Alkaline Phosphatase 69 U/L (45-117); Anion Gap 8 (5-15); BUN 14 mg/dL (7-18); BUN/Creat Ratio 13.5 RATIO (10-20); Calcium,Total 9.4 mg/dL (8.5-10.1); Chloride 107 mmol/L (98-107); Cholesterol 162 mg/dL (200); Creatinine, Serum 1.04 mg/dL (0.70-1.30); EST Glomerular Filtration Rate 77 mL/min (>60); Est Glom Filt Rate - Afr Amer 93 mL/min (>60); Globulin 3.8 g/dL (2.2-4.2); Glucose 104 mg/dL (74-106); High Density Lipoprotein 35 mg/dL; Potassium 3.8 mmol/L (3.5-5.1); Protein, Total 7.6 g/dL (6.4-8.2); Sodium Level 139 mmol/L (136-145); Triglycerides 147 mg/dL; Very Low Density Lipoprotein 29 mg/dL (5-40)
== END | disposition home or self-care (01) ==
LOC: BIMLAB 09:24
PROVIDERS: PCP Internal Medicine; Visit Provider Internal Medicine
DX: Z00.00 Encounter for general adult medical examination without abnormal findings (principal)
CPT/HCPCS: 36415; 80053; 80061; 85025

== ENCOUNTER → 2022-05-06 | Outpatient (CLI) | payer BC, SELFPAY | END | disposition home or self-care (01) | LOC: LAB 06:27 | PROVIDERS: PCP Internal Medicine; Referring Provider Urology; Visit Provider Urology | DX: R97.20 Elevated prostate specific antigen [PSA] (principal) | CPT/HCPCS: 36415; 84153 ==

== ENCOUNTER → 2022-06-19 | Outpatient (CLI) | payer BC, SELFPAY ==
[2022-06-19 09:20] LABS: AST(SGOT) 21 U/L (15-37); Alanine Aminotransfer ALT/SGPT 19 U/L (16-61); Albumin, Serum 3.7 g/dL (3.2-5.0); Alkaline Phosphatase 68 U/L (45-117); Cholesterol 165 mg/dL (200); Globulin 3.8 g/dL (2.2-4.2); High Density Lipoprotein 35 mg/dL; Protein, Total 7.5 g/dL (6.4-8.2); Triglycerides 147 mg/dL; Very Low Density Lipoprotein 29 mg/dL (5-40)
== END | disposition home or self-care (01) ==
PROVIDERS: PCP Internal Medicine; Referring Provider Nurse Practitioner Family; Visit Provider Nurse Practitioner Family
DX: E78.00 Pure hypercholesterolemia, unspecified (principal)
CPT/HCPCS: 36415; 80061; 80076

== ENCOUNTER → 2022-07-03 | Outpatient (CLI) | payer BC, SELFPAY ==
[2022-07-03 08:14] LABS: Anion Gap 7 (5-15); BUN 11 mg/dL (7-18); BUN/Creat Ratio 9.5 RATIO (10-20); Calcium,Total 8.9 mg/dL (8.5-10.1); Chloride 104 mmol/L (98-107); Creatinine, Serum 1.16 mg/dL (0.70-1.30); EST Glomerular Filtration Rate 67 mL/min (>60); Est Glom Filt Rate - Afr Amer 82 mL/min (>60); Glucose 125 mg/dL (74-106); Potassium 3.5 mmol/L (3.5-5.1); Sodium Level 140 mmol/L (136-145)
== END | disposition home or self-care (01) ==
LOC: LAB 06:20
PROVIDERS: PCP Internal Medicine; Referring Provider Nurse Practitioner Family; Visit Provider Nurse Practitioner Family
DX: I10 Essential (primary) hypertension (principal); I25.10 Atherosclerotic heart disease of native coronary artery without angina pectoris
CPT/HCPCS: 36415; 80048

== ENCOUNTER → 2023-05-28 | Outpatient (CLI) | payer BC, SELFPAY ==
--- OUTSIDE RECORDS SUMMARY | 2023-05-28 08:55 | XMS RPT_ITS | CCD ---
Author Name Unknown Address [address] [place] [address] Organization [facility] Care Team Providers Care Assistant Professor Of Mathematics Name Role Phone Praful Lo Unavailable Unavailable Fatuma Jung MD Unavailable [phone] Colleen Doan Unavailable Unavailable Fatuma Jung MD Unavailable [phone] MD Deyvi, Patrick Díaz Unavailable Arlet BETANCOURT, Consuelo Matson Unavailable Unavailable Katerin SHEPARD, Praful Matson Unavailable Unavailable Dara Allan Unavailable Unavailable Allergies Allergy Classification Reported Allergen(s) Allergy Type Date of Onset Reaction(s) Facility (12 sources) natural latex rubber; Translations: [LATEX] allergy to substance 06-17-2011 [facility] Work Phone: Medications Completed/Discontinued Medications Medication Drug Class(es) Dates Sig (Normalized) Sig (Original) 24 hr alfuzosin hydrochloride 10 mg extended release oral tablet (20 sources) alpha-Adrenergic Minda Start: 03-05-2014 End: 02-11-2015 take 1 tablet by mouth once daily in the evening ALFUZOSIN HCL ER 10 MG [id number] One tablet by mouth daily every evening ALFUZOSIN HCL [id number] Patrick Carnes MD Problems Active Problems Problem Classification Problem Date Documented Da te Episodic/Chronic Disorders of lipid metabolism (12 sources) Hyperlipidemia; Translations: [Hyperlipidemia, unspecified] Onset: 01-16-2014 01-16-2014 Chronic Essential hypertension (12 sources) Hypertensive disorder; Translations: [Essential (primary) hypertension] Onset: 01-16-2014 01-16-2014 Chronic Other diseases of veins and lymphatics (12 sources) Lymphedema of upper limb; Translations: [Lymphedema, not elsewhere classified] Onset: 08-25-2011 09-21-2011 Chronic Other nutritional; endocrine; and metabolic disorders (17 sources) Body mass index (BMI) 36.0-36.9, adult; Translations: [Metabolic syndrome X] Onset: 11-06-2016 11-06-2016 Chronic Other nutritional; endocrine; and metabolic disorders (1 source) Metabolic syndrome X; Translations: [Metabolic syndrome] Onset: 11-06-2016 11-06-2016 Chronic Unclassified (12 sources) Long-term drug therapy; Translations: [Long-term (current) use of other medications] Onset: 01-16-2014 Resolved: 02-11-2015 01-16-2014 Past or Other Problems Problem Classification Problem Date Documented Date Episodic/Chronic Diabetes mellitus without complication (9 sources) Abnormal glucose level; Translations: [Other abnormal glucose] Onset: 11-06-2016 11-06-2016 Episodic Fluid and electrolyte disorders (6 sources) Hypokalemia; Translations: [Hypokalemia] Onset: 11-23-2016 11-23-2016 Episodic Other aftercare (20 sources) Long-term (current) use of other medications; Translations: [Other intermediate (current) drug therapy] Onset: 01-16-2014 Resolved: 02-11-2015 02-11-2015 Episodic Other circulatory disease (20 sources) H/O: heart disorder; Translations: [Electrocardiogram abnormal] Onset: 01-29-2014 Resolved: 01-31-2016 01-31-2016 Episodic Other connective tissue disease (12 sources) Pain in unspecified limb; Translations: [Pain in unspecified limb] Onset: 03-18-2012 05-12-2012 Episodic Other lower respiratory disease (20 sources) Dyspnea; Translations: [Shortness of breath] Onset: 01-16-2014 Resolved: 01-31-2016 01-16-2014 Episodic Other non-traumatic joint disorders (12 sources) Pain in unspecified shoulder; Translations: [Pain in unspecified shoulder] Onset: 03-18-2012 05-12-2012 Episodic Other screening for suspected conditions (not mental disorders or infectious disease) (8 sources) Electrocardiogram abnormal; Translations: [Abnormal electrocardiogram [ECG] [EKG]] Onset: 01-29-2014 Resolved: 01-31-2016 01-31-2016 Episodic Other skin disorders (20 sources) Hidradenitis suppurativa; Translations: [Hidradenitis suppurativa] Onset: 06-17-2011 06-23-2011 Episodic Deisi-; endo-; and myocarditis; cardiomyopathy (12 sources) Pericardial effusion; Translations: [Pericardial effusion (noninflammatory)] Onset: 02-13-2014 02-13-2014 Episodic Results Test Name Value Interpretation Reference Range Facil ity Vital Signs Date Time Vital Sign Value Performing Clinician Facility 11-06-2016 14:040 BMI (Body Mass Index) 36.84 kg/m2 Fatuma Jung MD [facility] 11-06-2016 14:040 BP Diastolic 62 mm[Hg] Fatuma Jung MD [facility] 11-06-2016 14:040 BP Systolic 156 mm[Hg] Fatuma Jung MD [facility] 11-06-2016 14: Height 176.53 cm Fatuma Jung MD [facility] 11-06-2016 14:040 Pulse (Heart Rate) 61 /min Fatuma Jung MD [facility] 11-06-2016 14:040 Weight 114.82 kg Fatuma Jung MD [facility] 09-10-2016 14:0400 BMI (Body Mass Index) 35.59 kg/m2 [facility] Work Phone: 09-10-2016 14:0400 Body weight 116.58 kg [facility] Work Phone: 09-10-2016 14:27-0400 BP Diastolic 62 mm[Hg] [facility] Work Phone: 09-10-2016 14:27-0400 BP Systolic 138 mm[Hg] [facility] Work Phone: 09-10-2016 14:27-0400 Height 180.97 cm [facility] Work Phone: 09-10-2016 14:27-0400 Pulse (Heart Rate) 64 /min Dara Allan [facility] Work Phone: 09-10-2016 14:27-0400 Respiratory Rate 18 /min [facility] Work Phone: 09-10-2016 14:27-0400 Weight 116.58 kg [facility] 03-10-2016 09:47-0500 BMI (Body Mass Index) 35.31 kg/m2 Patrick Carnes MD [facility] Work Phone: 03-10-2016 09:47-0500 BP Diastolic 68 mm[Hg] Patrick Carnes MD [facility] Work Phone: 03-10-2016 09:47-0500 BP Systolic 116 mm[Hg] Patrick Carnes MD [facility] Work Phone: 03-10-2016 09:47-0500 BSA (Body Surface Area) 2.35 m2 Patrick Carnes MD [facility] Work Phone: 03-10-2016 09:47-0500 Height 180.97 cm Patrick Carnes MD [facility] Work Phone: 03-10-2016 09:47-0500 Pulse (Heart Rate) 64 /min Patrick Carnes [facility] Work Phone: 03-10-2016 09:47-0500 Respiratory Rate 18 /min Patrick Carnes MD [facility] Work Phone: 03-10-2016 09:47-0500 Weight 115.67 kg Patrick Carnes MD [facility] Work Phone: 02-13-2014 11:30-0400 Heart rate 64 /min [facility] Work Phone: 03-18-2012 16:09-0500 Body Temperature 98.7 [degF] Patrick Carnes MD [facility] Work Phone: 03-18-2012 16:09-0500 Pulse Oximetry 98 % Patrick Carnes MD [facility] Work Phone: Procedures Date Procedure Procedure Detail Performing Clinician Start: 12-17-2016 End: 12-17-2016 *BMP Praful Conklin [facility] Start: 12-17-2016 End: 12-17-2016 *BMP Praful Mendozader [facility] Start: 11-20-2016 End: 11-23-2016 *BMP Fatuma Flores Work Phone: Start: 11-20-2016 End: 11-23-2016 *CBC with Differential Fatuma murphy MD Work Phone: Start: 11-20-2016 End: 11-23-2016 *BMP Fatuma Flores Work Phone: Start: 11-20-2016 End: 11-23-2016 *CBC with Differential Fatuma murphy MD Work Phone: Start: 11-06-2016 End: 11-23-2016 Hemoglobin A1c/Hemoglobin.total in Blood Fatuma Jung MD Work Phone: Start: 11-06-2016 End: 11-23-2016 Lipid 1996 panel - Serum or Plasma Fatuma Jung MD Work Phone: Start: 11-06-2016 End: 11-23-2016 Thyrotropin [Units/volume] in Serum or Plasma Fatuma Jung MD Work Phone: Start: 11-06-2016 End: 11-23-2016 Thyroxine (T4) free [Mass/volume] in Serum or Plasma Fatuma Jung MD Work Phone: Start: 11-06-2016 End: 11-23-2016 HbA1c Fatuma Flores Work Phone: Start: 11-06-2016 End: 11-23-2016 Lipid panel [AGGREGATE] Fatuma eduardo MD Work Phone: Start: 11-06-2016 End: 11-23-2016 Thyroid stimulating hormone (TSH) Fatuma Jung MD Work Phone: Start: 11-06-2016 End: 11-23-2016 Thyroxine (T4) free Fatuma Rodas Edreginald Shon Mark Work Phone: Start: 09-10-2016 End: 09-10-2016 Documentation of current medications Dara Allan Start: 09-10-2016 End: 09-10-2016 SKIP Carnes MD Work Phone: Start: 09-10-2016 End: 09-10-2016 Follow Up Appt 6 months Patrick Carnes MD Work Phone: Start: 09-10-2016 End: 09-10-2016 SKIP Carnes MD Work Phone: Start: 09-10-2016 End: 09-10-2016 Follow Up Appt 6 months Patrick Carnes MD Work Phone: Start: 08-31-2016 End: 08-31-2016 *BMP Patrick Carnes MD Work Phone: Start: 08-31-2016 End: 08-31-2016 *PETTY Carnes MD Work Phone: Start: 03-10-2016 End: 09-01-2016 SKIP Carnes MD Work Phone: Start: 03-10-2016 End: 09-01-2016 Follow Up Appt 6 months Patrick Carnes MD Work Phone: Start: 03-10-2016 End: 03-30-2016 Stress Echocardiogram (treadmill) Patrick Carnes MD Work Phone: Start: 03-10-2016 End: 03-10-2016 Dietary management education, guidance, and counseling Dara Allan Start: 03-10-2016 End: 09-01-2016 SKIP Carnes MD Work Phone: Start: 03-10-2016 End: 09-01-2016 Follow Up Appt 6 months Patrick Carnes MD Work Phone: Start: 03-10-2016 End: 03-30-2016 Stress Echocardiogram (treadmill) Patrick Carnes MD Work Phone: Start: 02-06-2016 End: 02-29-2016 *Hepatic Function Panel Patrick Carnes MD Work Phone: Start: 02-06-2016 End: 02-29-2016 Lipid 1996 panel - Serum or Plasma Patrick Carnes MD Work Phone: Start: 02-06-2016 End: 02-29-2016 *Hepatic Function Panel Patrick Carnes MD Work Phone: Start: 02-06-2016 End: 02-29-2016 Lipid panel [AGGREGATE] Patrick Carnes MD Work Phone: Start: 02-11-2015 End: 02-11-2015 *Hepatic Function Panel Patrick Carnes MD Work Phone: Start: 02-11-2015 End: 02-11-2015 SKIP Carnes MD Work Phone: Start: 02-11-2015 End: 02-11-2015 Follow Up Appt 1 year Shon Cooper Work Phone: Start: 02-11-2015 End: 02-11-2015 Lipid 1996 panel - Serum or Plasma Patrick Carnes MD Work Phone: Start: 02-11-2015 End: 02-11-2015 Smoking cessation education Dara Allan Start: 02-11-2015 End: 02-11-2015 *Hepatic Function Panel Patrick Carnes MD Work Phone: Start: 02-11-2015 End: 02-11-2015 SKIP Carnes MD Work Phone: Start: 02-11-2015 End: 02-11-2015 Follow Up Appt 1 year Shon Cooper Work Phone: Start: 02-11-2015 End: 02-11-2015 Lipid panel [AGGREGATE] Patrick Carnes MD Work Phone: Start: 09-17-2014 End: 02-11-2015 *Hepatic Function Panel Patrick Carnes MD Work Phone: Start: 09-17-2014 End: 02-11-2015 *Hepatic Function Panel Patrick Carnes MD Work Phone: Start: 07-24-2014 End: 07-24-2014 *Hepatic Function Panel Patrick Carnes MD Work Phone: Start: 07-24-2014 End: 07-24-2014 Lipid 1996 panel - Serum or Plasma Patrick Carnes MD Work Phone: Start: 07-24-2014 End: 07-24-2014 *Hepatic Function Panel Patrick Carnes MD Work Phone: Start: 07-24-2014 End: 07-24-2014 Lipid panel [AGGREGATE] Patrick Carnes MD Work Phone: Start: 07-18-2014 End: 07-23-2014 Lipid 1996 panel - Serum or Plasma Patrick Carnes MD Work Phone: Start: 07-18-2014 End: 07-23-2014 Lipid panel [AGGREGATE] Patrick Carnes MD Work Phone: Start: 03-27-2014 End: 01-31-2015 SKIP Carnes MD Work Phone: Start: 03-27-2014 End: 01-31-2015 Follow Up Appt 1 year Shon Cooper Work Phone: Start: 03-27-2014 End: 01-31-2015 SKIP Carnes MD Work Phone: Start: 03-27-2014 End: 01-31-2015 Follow Up Appt 1 year Shon Cooper Work Phone: Start: 03-01-2014 End: 03-01-2014 Echocardiography Patrick Carnes MD Work Phone: Start: 03-01-2014 End: 03-01-2014 Echocardiography Patrick Carnes MD Work Phone: Start: 02-13-2014 End: 02-13-2014 SKIP Carnes MD Work Phone: Start: 02-13-2014 End: 02-22-2014 Echocardiography Patrick Carnes MD Work Phone: Start: 02-13-2014 End: 02-13-2014 Follow Up Appt 1 year Shon Cooper Work Phone: Start: 02-13-2014 End: 02-13-2014 SKIP Carnes MD Work Phone: Start: 02-13-2014 End: 02-22-2014 Echocardiography Patrick Carnes MD Work Phone: Start: 02-13-2014 End: 02-13-2014 Follow Up Appt 1 year Shon Cooper Work Phone: Start: 01-29-2014 End: 01-29-2014 SKIP Carnes MD Work Phone: Start: 01-29-2014 End: 02-05-2014 Echocardiography Patrick Carnes MD Work Phone: Start: 01-29-2014 End: 01-29-2014 Follow Up Appt 1 year Shon Cooper Work Phone: Start: 01-29-2014 End: 02-05-2014 Lipid 1996 panel - Serum or Plasma Patrick Carnes MD Work Phone: Start: 01-29-2014 End: 02-23-2014 Stress Echocardiogram (treadmill) Patrick Canres MD Work Phone: Start: 01-29-2014 End: 02-05-2014 *Hepatic Function Panel Patrick Carnes MD Work Phone: Start: 01-29-2014 End: 01-29-2014 SKIP Carnes MD Work Phone: Start: 01-29-2014 End: 01-29-2014 Echocardiography Patrick Carnes MD Work Phone: Start: 01-29-2014 End: 02-05-2014 Lipid panel [AGGREGATE] Patrick Carnes MD Work Phone: Start: 01-29-2014 End: 02-23-2014 Stress Echocardiogram (treadmill) Patrick Carnes MD Work Phone: Plan of Treatment Date Care Activity Detail Author Start: 03-29-2017 End: 03-29-2017 Appointment Appointment [facility] Work Phone: Start: 02-28-2017 End: 03-03-2016 *Hepatic Function Panel *Hepatic Function Panel [facility] Work Phone: Start: 02-28-2017 End: 03-03-2016 Lipid panel [AGGREGATE] *Lipid Profile CC PCP [facility] Work Phone: Start: 02-28-2017 End: 03-03-2016 *Hepatic Function Panel *Hepatic Function Panel [facility] Work Phone: Start: 02-28-2017 End: 03-03-2016 Lipid panel [AGGREGATE] *Lipid Profile CC PCP [facility] Work Phone: Start: 02-12-2017 End: 02-12-2017 Appointment Appointment [facility] Start: 12-24-2016 End: 12-17-2016 *BMP *BMP [facility] Work Phone: Start: 12-24-2016 End: 12-17-2016 *BMP *BMP [facility] Work Phone: Start: 11-20-2016 End: 11-23-2016 *BMP *BMP [facility] Work Phone: Start: 11-20-2016 End: 11-23-2016 *CBC with Differential *CBC with Differential [facility] Work Phone: Start: 11-20-2016 End: 11-23-2016 *BMP *BMP [facility] Start: 11-20-2016 End: 11-23-2016 *CBC with Differential *CBC with Differential [facility] Start: 11-06-2016 End: 11-06-2016 Appointment Appointment [facility] Start: 11-06-2016 End: 11-06-2016 Follow Up Appt 3 months Follow Up Appt 3 months [facility] Work Phone: Start: 11-06-2016 End: 11-23-2016 Hemoglobin A1c/Hemoglobin.total mass fraction (Bld) *HgA1C [facility] Work Phone: Start: 11-06-2016 End: 11-23-2016 Lipid panel [AGGREGATE] *Lipid Profile [facility] Work Phone: Start: 11-06-2016 End: 11-23-2016 Thyroid stimulating hormone (TSH) *TSH [facility] Work Phone: Start: 11-06-2016 End: 11-23-2016 Thyroxine (T4) free *T4 free [facility] Work Phone: Start: 11-06-2016 End: 11-06-2016 Follow Up Appt 3 months Follow Up Appt 3 months [facility] Start: 11-06-2016 End: 11-23-2016 HbA1c *HgA1C [facility] Start: 11-06-2016 End: 11-23-2016 Lipid panel [AGGREGATE] *Lip[facility] Profile [facility] Start: 11-06-2016 End: 11-23-2016 Thyroid stimulating hormone (TSH) *TSH [facility] Start: 11-06-2016 End: 11-23-2016 Thyroxine (T4) free *T4 free [facility] Start: 09-10-2016 End: 09-10-2016 Appointment Appointment [facility] Work Phone: Start: 09-10-2016 End: 09-10-2016 SKIP VALDIVIA [facility] Work Phone: Start: 09-10-2016 End: 09-10-2016 Follow Up Appt 6 months Follow Up Appt 6 months [facility] Work Phone: Start: 09-10-2016 End: 09-10-2016 SKIP VALDIVIA [facility] Work Phone: Start: 09-10-2016 End: 09-10-2016 Follow Up Appt 6 months Follow Up Appt 6 months [facility] Work Phone: Start: 08-31-2016 End: 08-31-2016 *BMP *BMP [facility] Work Phone: Start: 08-31-2016 End: 08-31-2016 *BMP *BMP [facility] Work Phone: Start: 03-10-2016 End: 09-01-2016 SKIP VALDIVIA [facility] Work Phone: Start: 03-10-2016 End: 09-01-2016 Follow Up Appt 6 months Follow Up Appt 6 months [facility] Work Phone: Start: 03-10-2016 End: 03-10-2016 Stress Echocardiogram (treadmill) Stress Echocardiogram (treadmill) [facility] Work Phone: Start: 03-10-2016 End: 09-01-2016 SKIP VALDIVIA [facility] Work Phone: Start: 03-10-2016 End: 09-01-2016 Follow Up Appt 6 months Follow Up Appt 6 months [facility] Work Phone: Start: 03-10-2016 End: 03-10-2016 Stress Echocardiogram (treadmill) Stress Echocardiogram (treadmill) [facility] Work Phone: Start: 02-06-2016 End: 02-29-2016 *Hepatic Function Panel *Hepatic Function Panel [facility] Work Phone: Start: 02-06-2016 End: 02-29-2016 Lipid panel [AGGREGATE] *Lipid Profile CC PCP [facility] Work Phone: Start: 02-06-2016 End: 02-29-2016 *Hepatic Function Panel *Hepatic Function Panel [facility] Work Phone: Start: 02-06-2016 End: 02-29-2016 Lipid panel [AGGREGATE] *Lipid Profile CC PCP [facility] Work Phone: Start: 07-25-2015 End: 02-11-2015 *Hepatic Function Panel *Hepatic Function Panel [facility] Work Phone: Start: 07-25-2015 End: 02-11-2015 Lipid panel [AGGREGATE] *Lipid Profile CC PCP [facility] Work Phone: Start: 07-25-2015 End: 02-11-2015 *Hepatic Function Panel *Hepatic Function Panel [facility] Work Phone: Start: 07-25-2015 End: 02-11-2015 Lipid panel [AGGREGATE] *Lipid Profile CC PCP [facility] Work Phone: Start: 02-11-2015 End: 02-11-2015 DJN SARAN [facility] Work Phone: Start: 02-11-2015 End: 02-11-2015 Follow Up Appt 1 year Follow Up Appt 1 year [facility] Work Phone: Start: 02-11-2015 End: 02-11-2015 DJN DJN [facility] Work Phone: Start: 02-11-2015 End: 02-11-2015 Follow Up Appt 1 year Follow Up Appt 1 year [facility] Work Phone: Start: 01-30-2015 End: 07-24-2014 *Hepatic Function Panel *Hepatic Function Panel [facility] Work Phone: Start: 01-30-2015 End: 07-24-2014 Lipid panel [AGGREGATE] *Lipid Profile CC PCP [facility] Work Phone: Start: 01-30-2015 End: 07-24-2014 *Hepatic Function Panel *Hepatic Function Panel [facility] Work Phone: Start: 01-30-2015 End: 07-24-2014 Lipid panel [AGGREGATE] *Lipid Profile CC PCP [facility] Work Phone: Start: 09-17-2014 End: 02-11-2015 *Hepatic Function Panel *Hepatic Function Panel [facility] Work Phone: Start: 09-17-2014 End: 02-11-2015 *Hepatic Function Panel *Hepatic Function Panel [facility] Work Phone: Start: 07-18-2014 End: 07-23-2014 Lipid panel [AGGREGATE] *Lipid Profile CC PCP [facility] Work Phone: Start: 07-18-2014 End: 07-23-2014 Lipid panel [AGGREGATE] *Lipid Profile CC PCP [facility] Work Phone: Start: 03-27-2014 End: 01-31-2015 SKIP SKIP [facility] Work Phone: Start: 03-27-2014 End: 01-31-2015 Follow Up Appt 1 year Follow Up Appt 1 year [facility] Work Phone: Start: 03-27-2014 End: 01-31-2015 SKIP RUIZHelen [facility] Work Phone: Start: 03-27-2014 End: 01-31-2015 Follow Up Appt 1 year Follow Up Appt 1 year [facility] Work Phone: Start: 03-01-2014 End: 03-01-2014 Echocardiography Echocardiogram (limited) [facility] Work Phone: Start: 03-01-2014 End: 03-01-2014 Echocardiography Echocardiogram (limited) [facility] Work Phone: Start: 02-13-2014 End: 02-13-2014 SKIP SKIP [facility] Work Phone: Start: 02-13-2014 End: 02-13-2014 Echocardiography Echocardiogram (complete) [facility] Work Phone: Start: 02-13-2014 End: 02-13-2014 Follow Up Appt 1 year Follow Up Appt 1 year [facility] Work Phone: Start: 02-13-2014 End: 02-13-2014 SKIP RUIZ [facility] Work Phone: Start: 02-13-2014 End: 02-13-2014 Echocardiography Echocardiogram (complete) [facility] Work Phone: Start: 02-13-2014 End: 02-13-2014 Follow Up Appt 1 year Follow Up Appt 1 year [facility] Work Phone: Start: 01-29-2014 End: 01-30-2014 *Hepatic Function Panel *Hepatic Function Panel [facility] Work Phone: Start: 01-29-2014 End: 01-29-2014 SKIP VALDIVIA [facility] Work Phone: Start: 01-29-2014 End: 01-29-2014 Follow Up Appt 1 year Follow Up Appt 1 year [facility] Work Phone: Start: 01-29-2014 End: 01-30-2014 Lipid panel [AGGREGATE] *Lipid Profile CC PCP [facility] Work Phone: Start: 01-29-2014 End: 01-29-2014 Stress Echocardiogram (treadmill) Stress Echocardiogram (treadmill) [facility] Work Phone: Start: 01-29-2014 End: 01-30-2014 *Hepatic Function Panel *Hepatic Function Panel [facility] Work Phone: Start: 01-29-2014 End: 01-29-2014 DJN DJN [facility] Work Phone: Start: 01-29-2014 End: 01-29-2014 Follow Up Appt 1 year Follow Up Appt 1 year [facility] Work Phone: Start: 01-29-2014 End: 01-30-2014 Lipid panel [AGGREGATE] *Lipid Profile CC PCP [facility] Work Phone: Start: 01-29-2014 End: 01-29-2014 Stress Echocardiogram (treadmill) Stress Echocardiogram (treadmill) [facility] Work Phone: Patient Education HYPERLIPIDEMIA , HYPERTENSION,%20AMBULATO RY%20CARE, DYSPNEA, CHOLESTEROL%20AND%20YOUR %20HEALTH [facility] Work Phone: Summary Purpose Family History No Family History Records Found Advance Directives No Advanced Directives Records Found Additional Source Comments (unrecognized sect ion and content) No Status Records Found INFORMATION SOURCE (unrecogn ized section and content) FOR RECORDS PERTAINING TO PATIENTS WHO ARE OR HAVE BEEN ENROLLED IN A CHEMICAL DEPENDENCY/SUBSTANCEABUSE PROGRAM, SOME INFORMATION MAY BE OMITTED. This clinical summary was aggregated from multiple sources. Caution should be exercised in using it in the provision of clinical care. This summary normalizes information from multiple sources, and as a consequence, information in this document may materially change the coding, format and clinical context of patient data. In addition, data may be omitted in some cases. CLINICAL DECISIONS SHOULD BE BASED ON THE PRIMARY CLINICAL RECORDS. [facility] [employer] [facility]. provides no warranty or guarantee of the accuracy or completeness of information in this document.
[2023-05-28 10:47] LABS: AST(SGOT) 12 U/L (15-37); Alanine Aminotransfer ALT/SGPT 21 U/L (16-61); Albumin, Serum 3.8 g/dL (3.2-5.0); Alkaline Phosphatase 74 U/L (45-117); Cholesterol 194 mg/dL (200); Globulin 3.9 g/dL (2.2-4.2); High Density Lipoprotein 39 mg/dL; Protein, Total 7.7 g/dL (6.4-8.2); Triglycerides 169 mg/dL; Very Low Density Lipoprotein 34 mg/dL (5-40)
== END | disposition home or self-care (01) ==
LOC: LAB 08:37
PROVIDERS: Nurse Practitioner Family; PCP Internal Medicine; Referring Provider Urology; Visit Provider Urology
DX: R97.20 Elevated prostate specific antigen [PSA] (principal); E78.00 Pure hypercholesterolemia, unspecified
CPT/HCPCS: 36415; 80061; 80076; 84153

== ENCOUNTER → 2023-11-27 | Outpatient (CLI) | payer BC, SELFPAY | END | disposition home or self-care (01) | LOC: LAB 07:18 | PROVIDERS: PCP Internal Medicine; Referring Provider Urology; Visit Provider Urology | DX: N40.1 Benign prostatic hyperplasia with lower urinary tract symptoms (principal) | CPT/HCPCS: 36415; 84153 ==

== ENCOUNTER → 2024-01-03 | Outpatient (CLI) | payer BC, SELFPAY ==
[2024-01-03 15:05] LABS: Absolute Lymphocyte Count 2.14 X10^3/uL (0.83-4.51); Absolute Neutrophil Count 6.2 X10^3/uL (2.0-7.7); Basophil# 0.12 X10^3/uL; Basophil% 1.2 % (0-1); Eosinophil# 0.39 X10^3/uL; Hematocrit 37.5 % (40-54); Hemoglobin 11.9 g/dL (13.0-16.5); Lymphocyte # 2.14 X10^3/ul (0.83-4.51); Mean Corp Hgb Conc 31.7 g/dL (32-36); Mean Corpuscular Hgb 26.7 pg (27.0-32.0); Mean Corpuscular Volume 84.3 fL (80-94); Mean Platelet Vol. 10.2 fl (6.2-12.0); Monocyte# 0.84 X10^3/uL; Monocyte% 8.6 % (0-10); NRBC Flagged by Analyzer 0 % (0-5); Neutrophil # 6.16 X10^3/uL (2.7-7.7); Neutrophil % 63.5 % (47-70); Platelet Count 310 K/mm3 (150-450); RBC Distribution Width CV 14.1 % (11.6-14.6); RBC Distribution Width SD 43.4 fl (35.1-43.9); Red Blood Count 4.45 M/mm3 (4.6-6.2); White Blood Count 9.7 K/mm3 (4.4-11.0)
[2024-01-03 15:48] LABS: AST(SGOT) 18 U/L (15-37); Alanine Aminotransfer ALT/SGPT 20 U/L (16-61); Albumin, Serum 3.8 g/dL (3.2-5.0); Alkaline Phosphatase 67 U/L (45-117); Anion Gap 8 (5-15); BUN 19 mg/dL (7-18); Calcium,Total 9.2 mg/dL (8.5-10.1); Chloride 104 mmol/L (98-107); Cholesterol 187 mg/dL (200); Creatinine, Serum 1.12 mg/dL (0.70-1.30); EST Glomerular Filtration Rate 70 mL/min (>60); Est Glom Filt Rate - Afr Amer 85 mL/min (>60); Globulin 3.9 g/dL (2.2-4.2); Glucose 97 mg/dL (74-106); High Density Lipoprotein 43 mg/dL; Potassium 3.6 mmol/L (3.5-5.1); Protein, Total 7.7 g/dL (6.4-8.2); Sodium Level 136 mmol/L (136-145); Triglycerides 150 mg/dL; Very Low Density Lipoprotein 30 mg/dL (5-40)
[2024-01-04 09:15] LABS: Ferritin 59 ng/mL (26-388); Iron 57 ug/dL (65-175)
[2024-01-04 11:32] LABS: Iron Binding Capacity,Total 356 ug/dL (250-450)
== END | disposition home or self-care (01) ==
LOC: BIMLAB 11:42
PROVIDERS: PCP Internal Medicine; Referring Provider Internal Medicine; Visit Provider Internal Medicine
DX: Z00.00 Encounter for general adult medical examination without abnormal findings (principal); D64.9 Anemia, unspecified
CPT/HCPCS: 36415; 80053; 80061; 82728; 83540; 83550; 85025

== ENCOUNTER → 2024-12-08 | Outpatient (CLI) | payer BC, SELFPAY ==
--- OUTSIDE RECORDS SUMMARY | 2024-12-08 06:29 | XMS RPT_ITS | CCD ---
Author Organization [facility] Care Team Providers Care Interface Designer Name Role Phone Katerin SHEPARD, Praful Matson Unavailable Unavailable Fatuma Jung MD Unavailable [phone] Colleen Doan Unavailable Unavailable Fatuma Jung MD Unavailable [phone] MD Deyvi, Patrick Díaz Unavailable Arlet BETANCOURT, Consuelo Matson Unavailable Unavailable Katerin SHEPARD, Praful Matson Unavailable Unavailable Dara Allan Unavailable Unavailable Dr. Fatuma Jung Primary Care Provider [phone] Dr. Fatuma Jung Referring Provider [phone] Dr. Gordo Persaud Attending Provider Ephraim CHOWDHURY, DREDGE ENGINEER-C Nu Attending Provider Dr. Charles Camara Attending Provider Dr. Fatuma Jung Primary Care Provider [phone] Dr. Fatuma Jung Attending Provider [phone] Dr. Fatuma Jung Referring Provider [phone] Dr. Fatuma Jung Primary Care Provider [phone] Dr. Fatuma Jung Referring Provider [phone] Miguel Angel CHOWDHURY, GITA Arreaga Attending Provider Dr. Fatuma Jung MD Primary Care Provider Dr. Fatuma Jung MD Referring Provider [phone] Nu Perry Attending Provider Oleimane, Efewongbe Referring Unavailable Oleimane, Efewongbe Primary Care Unavailable Nu Ye NP Attending Unavailable Oleghe, Efewongbe Attending Unavailable Oleghe, Efewongbe Referring Unavailable Oleghe, Efewongbe Primary Care Unavailable Oleghe, Efewongbe Primary Care Unavailable Lyla Lawson Attending Unavailable Oleghe, Efewongbe Attending Unavailable Oleghe, Efewongbe Referring Unavailable Oleghe, Efewongbe Primary Care Unavailable Allergies Allergy Classification Reported Allergen(s) Allergy Type Date of Onset Reaction(s) Facility (12 sources) natural latex rubber; Translations: [LATEX] allergy to substance 06-17-2011 [facility] Work Phone: (7 sources) natural latex rubber; Translations: [Latex, Natural Rubber] Allergy to substance 07-11-2021 [facility] Medications Current Medications Medication Drug Class(es) Dates Sig (Normalized) Sig (Original) amLODIPine 10 mg / valsartan 320 mg oral tablet (20 sources) Dihydropyridine Calcium Channel Minda, Angiotensin 2 Receptor Minda Start: 06-22-2022 End: 05-24-2024 Amlodipine-Valsar cash 10-320 mg tablet Active 1 {tbl} PO DAILY 90 May 24, 2024 9:12am Start: 06-22-2022 take 1 tablet by cruzito th once daily Amlodipine-Valsartan Active 1 TABLET PO DAILY June 22, 2022 12:00am Start: 03-27-2014 take 1 tablet by cruzito th once daily EXFORGE 10-160 MG TABS One tablet by mouth daily AMLODIPINE BESYLATE-VALSARTAN [id number] Patrick Carnes MD Start: 02-06-2014 End: 06-22-2022 take 1 tablet by mouth once daily Amlodipine-Valsartan 10-160 mg tablet Discontinued 0 .ROUTE .COMPLEX 90 June 10, 2022 10:24am June 22, 2022 9:57am TAKE 1 TABLET BY MOUTH EVERY DAY Start: 02-06-2014 End: 06-22-2022 take 1 tablet by mouth once daily Amlodipine-Valsartan Discontinued 0 .ROUTE .COMPLEX 90 June 10, 2022 9:24am June 22, 2022 8:57am TAKE 1 TABLET BY MOUTH EVERY DAY EXFORGE 10-160 M G TABS 1 tab daily AMLODIPINE BESYLATE-VALSARTAN [id number] Devon Briones MD End: 02-13-2014 EXFORGE 10-160 MG TABS 1 tab daily AMLODIPINE BESYLATE-VALSARTAN [id number] Patrick Carnes MD aspirin 81 mg delayed release oral tablet (6 sources) Platelet Aggregation Inhibitor, Nonsteroidal Anti-inflammatory Drug Start: 05-31-2018 take 1 tablet by mouth once daily Aspirin (Adult Aspirin Regimen) 81 mg tablet,delayed release (DR/EC) Active 81 mg PO DAILY 90 May 31, 2018 1:00am dutasteride 0.5 mg oral capsule (1 source) 5-alpha Reductase Inhibitor Start: 07-26-2023 take 1 capsule by mouth at bedtime Dutasteride 0.5 mg capsule Active 0.5 mg PO AT BEDTIME July 26, 2023 12:00am hydroCHLOROthiazide 25 mg oral tablet (20 sources) Thiazide Diuretic Start: 03-27-2014 End: 08-23-2024 take 1 tablet by mouth once daily Hydrochlorothiazide 25 mg tablet Active 25 mg PO daily August 23, 2024 7:58am Start: 03-27-2014 take 1 tablet by cruzito th once daily HYDROCHLOROTHIAZIDE 12.5 MG TABS One tablet by mouth daily HYDROCHLOROTHIAZIDE [id number] Patrick Carnes MD Start: 02-06-2014 End: 03-25-2017 take 1 capsule by mouth once daily Hydrochlorothiazide 12.5 MG capsule Discontinued 12.5 mg PO DAILY February 06, 2014 12:00am March 25, 2017 12:57pm Start: 01-16-2014 End: 02-13-2014 take 1 tablet by mouth once daily HYDROCHLOROTHIAZIDE 12.5 MG TABS One tablet by mouth daily HYDROCHLOROTHIAZIDE [id number] Patrick Carnes MD Multivitamin,Oo-Vedq-Kdjblne s (Complete Multivitamin) tablet (1 source) Start: 03-25-2017 Multivitamin,Va-Vvsm-Ffaddtf s (Complete Multivitamin) tablet Active 1 {tbl} PO As Directed March 25, 2017 1:00am multivitamin,qv-bybb-bigvxcm s tablet (5 sources) Start: 03-25-2017 multivitamin,tw-rxlx-uvswkxn s tablet Active 1 TABLET PO As Directed March 25, 2017 12:54pm Start: 03-25-2017 multivitamin,t x-qdef-gkzysdhh tablet Active 1 TABLET PO As Directed March 25, 2017 12:00am Start: 03-25-2017 multivitamin,t g-svdr-fgwvqblv tablet Active 1 TABLET PO As Directed March 25, 2017 1:00am potassium chloride 10 meq extended release oral tablet (20 sources) Start: 11-23-2016 End: 10-19-2024 take 1 tablet by mouth once daily Potassium Chloride 10 mEq tablet extended release Active 10 meq PO daily October 19, 2024 9:05am Start: 11-23-2016 take 1 tablet by cruzito th every twenty-four hours K-TAB 10 MEQ CR-TABS One tablet by mouth daily POTASSIUM CHLORIDE [id number] Praful Matson Katerin LOAN SECRETARY-C tadalafil 5 mg oral tablet (20 sources) Phosphodiesterase 5 Inhibitor Start: 03-10-2016 take 1 tablet by mouth once daily Tadalafil (Cialis) 5 mg tablet Active 5 mg PO daily March 25, 2017 1:00am Start: 01-16-2014 End: 01-29-2014 take 1 tablet by mouth once daily CIALIS 20 MG TABS One tablet by mouth daily TADALAFIL [id number] Patrick Carnes MD tamsulosin hydrochloride 0.4 mg oral capsule (18 sources) alpha-Adrenergic Minda Start: 03-10-2016 take 1 capsule by mouth once daily Tamsulosin (Flomax) 0.4 mg capsule,extended release 24hr Active 0.4 mg PO daily March 25, 2017 1:00am Completed/Discontinued Medications Medication Drug Class(es) Dates Sig (Normalized) Sig (Original) 24 hr alfuzosin hydrochloride 10 mg extended release oral tablet (20 sources) alpha-Adrenergic Minda Start: 03-05-2014 End: 02-11-2015 take 1 tablet by mouth once daily in the evening ALFUZOSIN HCL ER 10 MG [id number] One tablet by mouth daily every evening ALFUZOSIN HCL [id number] Patrick Carnes MD Start: 03-05-2014 End: 03-27-2014 take 1 tablet by mouth once daily UROXATRAL 10 MG [id number] One tablet by mouth daily ALFUZOSIN HCL [id number] Patrick Carnes MD Start: 03-05-2014 take 1 tablet by cruzito th once daily UROXATRAL 10 MG [id number] One tablet by mouth daily ALFUZOSIN HCL [id number] Anuja eDan RN atorvastatin 20 mg oral tablet (6 sources) HMG-CoA Reductase Inhibitor Start: 06-13-2018 End: 06-14-2019 take 1 tablet by mouth at bedtime Atorvastatin 20 mg tablet Discontinued 20 mg PO AT BEDTIME 30 June 13, 2018 1:00am June 14, 2019 3:07pm cephalexin (20 sources) Cephalosporin Antibacterial Start: 06-12-2011 End: 08-25-2011 HOWARDFLEX CATHLEEN Briones MD Start: 06-12-2011 CATHLEEN CATHLEEN Briones MD Start: 06-12-2011 End: 08-25-2011 CATHLEEN CATHLEEN Briones MD Start: 06-12-2011 CATHLEEN CATHLEEN Briones MD cholecalciferol 0.05 mg oral tablet (6 sources) Vitamin D Start: 05-23-2018 End: 06-14-2019 take 1 tablet by mouth once daily Cholecalciferol (Vitamin D3) 2,000 unit tablet Discontinued 2000 U PO DAILY May 23, 2018 1:00am June 14, 2019 3:07pm clindamycin 300 mg oral capsule (20 sources) Lincosamide Antibacterial Start: 07-05-2011 End: 08-25-2011 take 1 tablet by mouth three times daily CLEOCIN 300 MG CAPS One tablet by mouth three times daily CLINDAMYCIN HCL [id number] Devon Briones MD clopidogrel 75 mg oral tablet (6 sources) P2Y12 Platelet Inhibitor Start: 05-31-2018 End: 06-13-2018 take 1 tablet by mouth once daily Clopidogrel (Plavix) 75 mg tablet Discontinued 75 mg PO DAILY 30 May 31, 2018 1:00am June 13, 2018 12:20pm colchicine 0.6 mg oral tablet (20 sources) Start: 02-13-2014 End: 03-27-2014 take 1 tablet by mouth twice daily COLCHICINE 0.6 MG TABS One tablet by mouth twice daily (02/14/14 is last day) COLCHICINE [id number] Patrick Carnes MD diazePAM 5 mg oral tablet (20 sources) Benzodiazepine Start: 07-05-2011 End: 08-25-2011 take 1 tablet by mouth four times daily as needed for muscle spasms VALIUM 5 MG TABS One tablet by mouth four times daily as needed for spasm DIAZEPAM [id number] Devon Briones MD 24 hr doxazosin 4 mg extended release oral tablet (20 sources) alpha-Adrenergic Minda Start: 02-06-2014 End: 03-26-2017 take 1 tablet by mouth twice daily Doxazosin 4 MG tablet extended release 24 hr Discontinued 4 mg PO TWICE A DAY February 06, 2014 12:00am March 26, 2017 10:40pm Start: 01-29-2014 End: 02-13-2014 CARDURA 4 MG TABS 1 tablet t wice daily DOXAZOSIN MESYLATE [id number] Patrick Carnes MD Start: 01-16-2014 End: 01-29-2014 take 1 tablet by mouth once daily CARDURA 4 MG TABS One tablet by mouth daily DOXAZOSIN MESYLATE [id number] Consuelo Nice RN finasteride 5 mg oral tablet (20 sources) 5-alpha Reductase Inhibitor Start: 01-16-2014 End: 01-29-2014 take 1 tablet by mouth once daily PROSCAR 5 MG TABS One tablet by mouth daily FINASTERIDE [id number] Consuelo Nice RN Flucelvax Quad [id number] (PF) (flu vac qs 2020(2 yr up)CD(PF)) 60 mcg (15 mcg x (1 source) Start: 01-13-2021 End: 01-13-2021 inject 15 ug by intramuscular injection once Flucelvax Quad (PF) (flu vac qs 2020(2 yr up)CD(PF)) 60 mcg (15 mcg x Discontinued 0.5 ML IM ONCE 0.5 January 13, 2021 8:06am January 13, 2021 11:56am HYDROmorphone hydrochloride 2 mg oral tablet (20 sources) Opioid Agonist Start: 07-05-2011 End: 08-25-2011 take 1-2 tablets by mouth four times daily as needed for pain DILAUDID 2 MG TABS one to two tablets by mouth four times daily as needed for pain HYDROMORPHONE HCL [id number] Devon Briones MD ibuprofen 200 mg oral tablet (20 sources) Nonsteroidal Anti-inflammatory Drug Start: 03-27-2014 End: 02-11-2015 take 3 tablets by mouth once daily IBUPROFEN 200 MG TABS Three tablets by mouth daily IBUPROFEN [id number] Patrick Carnes MD MULTIPLE VITAMINS-MINERALS (6 sources) Start: 11-06-2016 COMPLETE MULTIVITAMIN/MINE RAL LIQD take as directed MULTIPLE VITAMINS-MINERALS [id number] Fatuma Jung MD MULTIPLE VITAMINS-MINERALS (3 sources) Start: 11-06-2016 COMPLETE MULTIVITAMIN/MINE RAL LIQD take as directed MULTIPLE VITAMINS-MINERALS [id number] Fatuma Jung MD Start: 11-06-2016 COMPLETE MULTI VITAMIN/MINERAL LIQD take as directed MULTIPLE VITAMINS-MINERALS [id number] Fatuma Jung MD OMEGA-3 FATTY ACIDS CPDR (16 sources) Start: 03-27-2014 End: 03-10-2016 OMEGA 3 CPDR 1400mg daily 20 01/04/09 OMEGA-3 FATTY ACIDS CPDR [id number] Dara Allan Start: 03-27-2014 OMEGA 3 CPDR 1 400mg daily OMEGA-3 FATTY ACIDS CPDR [id number] Patrick Carnes MD OMEGA-3 FATTY ACIDS CPDR (8 sources) Start: 03-27-2014 OMEGA 3 CPDR 1 400mg daily OMEGA-3 FATTY ACIDS CPDR [id number] Patrick Carnes MD Start: 03-27-2014 End: 03-10-2016 OMEGA 3 CPDR 1400mg daily 20 01/04/09 OMEGA-3 FATTY ACIDS CPDR [id number] Dara Allan Start: 03-27-2014 End: 03-10-2016 OMEGA 3 CPDR 1400mg daily 20 01/04/09 OMEGA-3 FATTY ACIDS CPDR [id number] Dara Allan Start: 03-27-2014 OMEGA 3 CPDR 1 400mg daily OMEGA-3 FATTY ACIDS CPDR [id number] Patrick Carnes MD Ysvhv-8s-Wvf-Epa-Fish Oil-D3 (5 sources) Start: 02-06-2014 End: 03-26-2017 Goxyd-0c-Lbx-Epa-Fish Oil-D3 Discontinued 1 EACH PO DAILY February 06, 2014 3:44pm March 26, 2017 10:40pm Start: 02-06-2014 End: 03-26-2017 Uitht-0j-Aor-Epa-Fish Oil-D3 Discontinued 1 EACH PO DAILY February 05, 2014 11:00pm March 26, 2017 9:40pm Start: 02-06-2014 End: 03-26-2017 Zmypu-2v-Nph-Epa-Fish Oil-D3 Discontinued 1 EACH PO DAILY February 06, 2014 12:00am March 26, 2017 10:40pm Uivbg-4v-Ebj-Epa-Fish Oil-D3 1 EACH capsule (1 source) Start: 02-06-2014 End: 03-26-2017 take 1 capsule by mouth once daily Nfdic-1r-Thf-Epa-Fish Oil-D3 1 EACH capsule Discontinued 1 NMA PO DAILY February 06, 2014 12:00am March 26, 2017 10:40pm Saw-Vit E-Sod Hqh-Oki-Bopy-Pyg (5 sources) Start: 02-06-2014 End: 03-26-2017 Saw-Vit E-Sod Wgt-Rhz-Qcgx-Pyg Discontinued 1 EACH PO DAILY February 06, 2014 3:44pm March 26, 2017 10:39pm Start: 02-06-2014 End: 03-26-2017 Saw-Vit E-Sod Jys-Vma-Acuo-P yg Discontinued 1 EACH PO DAILY February 05, 2014 11:00pm March 26, 2017 9:39pm Start: 02-06-2014 End: 03-26-2017 Saw-Vit E-Sod Prr-Otc-Mrvk-P yg Discontinued 1 EACH PO DAILY February 06, 2014 12:00am March 26, 2017 10:39pm Saw-Vit E-Sod Ekr-Zho-Qoat-Pyg 1 EACH tablet (1 source) Start: 02-06-2014 End: 03-26-2017 take 1 tablet by mouth once daily Saw-Vit E-Sod Obj-Nmx-Vdpd-Pyg 1 EACH tablet Discontinued 1 NMA PO DAILY February 06, 2014 12:00am March 26, 2017 10:39pm sulfamethoxazole / trimethoprim (20 sources) Dihydrofolate Reductase Inhibitor Antibacterial, Sulfonamide Antimicrobial Start: 06-12-2011 End: 08-25-2011 BACTRIM MARTIN Briones MD Start: 06-12-2011 BACTRIM 06/12 MARTIN Briones MD Start: 06-12-2011 End: 08-25-2011 BACTRIM MARTIN Briones MD Start: 06-12-2011 BACTRIM 06/12 MARTIN Briones MD vitamin b12 0.1 mg oral tablet (15 sources) Vitamin B12 Start: 03-25-2017 End: 03-29-2017 Cyanocobalamin (Vitamin B-12 ) (Vitamin B-12) 100 mcg tablet Discontinued 100 ug PO As Directed March 25, 2017 1:00am March 29, 2017 3:40pm Start: 11-06-2016 B-12 100 MCG T ABS take as directed CYANOCOBALAMIN [id number] Fatuma Jung MD Problems Active Problems Problem Classification Problem Date Documented Date Episodic/Chronic Cardiac dysrhythmias (6 sources) Ventricular premature beats; Translations: [Ventricular premature depolarization] 09-29-2019 Chronic Coronary atherosclerosis and other heart disease (9 sources) Coronary atherosclerosis; Translations: [Atherosclerotic heart disease of [place] coronary artery without angina pectoris] Chronic Comment on above: Mild nonobstructive CAD per [facility] done per [facility] @ [facility] the patient denies any anginal type symptoms. Secondary risk factors are addressed. Deficiency and other anemia (1 source) Anemia; Translations: [Anemia, unspecified] 01-03-2024 Episodic Disorders of lipid metabolism (20 sources) Hyperlipidemia; Translations: [Hyperlipidemia, unspecified] Onset: 4 01-16-2014 Chronic Comment on above: Patient's lipids don e May 2023 showed an LDL of 121 total cholesterol was under 200 as well as triglycerides under 200. He is not on any statin therapy at this time. He has no history of diabetes but his fasting blood sugar is 125. Essential hypertension (20 sources) Hypertensive disorder; Translations: [Essential hypertension] Onset: 4 01-16-2014 Chronic Comment on above: Blood pressure is we ll-controlled on his current medical therapy. Fluid and electrolyte disorders (12 sources) Hypokalemia; Translations: [Hypokalemia] Onset: 7 11-23-2016 Episodic Other diseases of veins and lymphatics (12 sources) Lymphedema of upper limb; Translations: [Lymphedema, not elsewhere classified] Onset: 2 09-21-2011 Chronic Other lower respiratory disease (20 sources) Dyspnea; Translations: [Dyspnea, unspecified] Onset: 4 Resolved: 6 01-16-2014 Episodic Other nutritional; endocrine; and metabolic disorders (17 sources) Body mass index (BMI) 36.0-36.9, adult; Translations: [Metabolic syndrome X] Onset: 7 11-06-2016 Chronic Other nutritional; endocrine; and metabolic disorders (1 source) Metabolic syndrome X; Translations: [Metabolic syndrome] Onset: 7 11-06-2016 Chronic Other screening for suspected conditions (not mental disorders or infectious disease) (17 sources) Electrocardiogram abnormal; Translations: [Echocardiogram abnormal] Onset: 4 Resolved: 6 01-31-2016 Episodic Other skin disorders (20 sources) Hidradenitis suppurativa; Translations: [Axillary hidradenitis suppurativa] Onset: 2 06-23-2011 Episodic Other skin disorders (6 sources) Axillary hidradenitis suppurativa; Translations: [Hidradenitis suppurativa] 03-29-2017 Episodic [place]isi-; endo-; and myocarditis; cardiomyopathy (20 sources) Pericardial effusion; Translations: [Cardiac tamponade] Onset: 4 02-13-2014 Episodic Peripheral and visceral atherosclerosis (8 sources) Intermittent claudication; Translations: [Peripheral vascular disease, unspecified] Chronic Residual codes; unclassified (6 sources) Obstructive sleep apnea syndrome; Translations: [Obstructive sleep apnea (adult) (pediatric)] 06-29-2018 Chronic Residual codes; unclassified (6 sources) Daytime somnolence; Translations: [Other hypersomnia] 06-29-2018 Chronic Unclassified (12 sources) Long-term drug therapy; Translations: [Long-term (current) use of other medications] Onset: 4 Resolved: 5 01-16-2014 Past or Other Problems Problem Classification Problem Date Documented Date Episodic/Chronic Diabetes mellitus without complication (9 sources) Abnormal glucose level; Translations: [Other abnormal glucose] Onset: 11-06-2016 11-06-2016 Episodic Other aftercare (20 sources) Long-term (current) use of other medications; Translations: [Other shelter (current) drug therapy] Onset: 01-16-2014 Resolved: 02-11-2015 02-11-2015 Episodic Other circulatory disease (20 sources) H/O: heart disorder; Translations: [Electrocardiogram abnormal] Onset: 01-29-2014 Resolved: 01-31-2016 01-31-2016 Episodic Other connective tissue disease (12 sources) Pain in unspecified limb; Translations: [Pain in unspecified limb] Onset: 03-18-2012 05-12-2012 Episodic Other non-traumatic joint disorders (12 sources) Pain in unspecified shoulder; Translations: [Pain in unspecified shoulder] Onset: 03-18-2012 05-12-2012 Episodic Residual codes; unclassified (6 sources) History of cardiac catheterization; Translations: [Other specified postprocedural states] Onset: 06-13-2018 09-29-2019 Episodic Comment on above: Mild nonobstructive CAD per [facility] done per [facility] @ [facility] Results Test Name Value Interpretation Reference Range Facility Cardiology Visit Reporton Cardiology Visit Report [facility] [address] [place], [place] [address] OFFICE VISIT Date of Service: 10/19/24 MR#: [id number] Acct: [id number] Name: MARY CARBALLO Rep #: [id number] : 1960 Provider: GITA ornelas Age/Sex: 64/M Location: [facility] [place] Status: Signed HPI HPI History of Present Illness Details: This is a 64-year-old -[place] male who presents today for outpatient cardiovascular follow- up visit. He has a history of nonobstructive CAD, hyperlipidemia, hypertension, mild, and a remote history of pericarditis/pericardi al effusion with cardiac tamponade requiring pericardiocentesis (01/2014). The patient's last heart cath was 2018 where he had minimal coronary artery disease and normal LV function. From a cardiac standpoint, the patient is doing well. He denies any palpitations, chest pain, pressure or heaviness. He does acknowledge occasional SOB with exertion-this is nothing new or worsening. He denies Orthopnea, and PND. He does not have bleeding issues; no blood in urine, stool, or nosebleeds. He denies any decrease in energy level, myalgias, or claudication. He does acknowledge occasional ankle edema. He does not have sudden weight gain. He denies lightheadedness, dizziness, syncopal or near syncopal episodes, and headaches. 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 Required: No Accompanied by: Self Is patient in pain?: No Allergies Latex, Natural Rubber Allergy (Verified 10/19/24 09:04) Rash Medications ???Medication ???Instructions ???Recorded ???Confirmed ???Type multivitamin,tx-iron-m inerals 1 tab PO DIRECTED 03/25/1707/11 History (Complete Multivitamin tablet) tadalafil 5 mg tablet (Cialis) 5 mg PO QDAY 03/25/17 10/19/24 His tory tamsulosin 0.4 mg capsule (Flomax) 0.4 mg PO QDAY 03/25/17 10/19/24 History aspirin 81 mg tablet,delayed 81 mg PO DAILY #90 tabs 05/31/18 0 10/19/24 Rx release (Adult Aspirin Regimen) dutasteride 0.5 mg capsule 0.5 mg PO QHS 07/26/23 10/19/24 Hi story amlodipine 10 mg-valsartan 320 mg 1 tab PO DAILY #90 tabs 05/24/24 10/19/24 Rx tablet hydrochlorothiazide 25 mg tablet 25 mg PO QDAY #90 tabs 08/23/24 Rx potassium chloride 10 mEq 10 meq PO QDAY #90 tabs 10/19/24 0 10/19/24 Rx tablet,extended release Ejection fraction %: 65 Have you fallen in the past year?: No PFSH Medical History Anemia Colon cancer screening Preventative health care Claudication Essential hypertension Obstructive sleep apnea Excessive daytime sleepiness Atherosclerotic heart disease of [place] coronary artery without angina pectoris Pre-operative cardiovascular examination Frequent PVCs Abnormal stress echo Chronic back pain BPH (benign prostatic hyperplasia) Left axillary hidradenitis Right axillary hidradenitis Hypokalemia Cardiac tamponade Pericardial effusion Hyperlipidemia Dyspnea Surgical History History of left heart catheterization (06/13/18) S/P pericardiocentesis ( 01/2014) hx left axillary hidradenitis Family History Grandfather Prostate cancer Father Prostate cancer Brother Prostate cancer Uncle Prostate cancer Social History adopted: No household members: spouse number of children: 1 current occupational status: employed 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 pets and animals: Yes (1) pets and animals: dog(s) sexually active: Yes Smoking Status: Former smoker quit date: 04/19/75 Tobacco: How many years used: 15 alcohol intake: never substance use type: does not use caffeine: Yes (2-3) Type: coffee what type of physical activity do you participate in: walking frequency: daily seatbelt use: always do you feel safe at home: Yes ROS Const Const: Negative for fatigue or weakness Eyes Eyes: Negative for change in vision ENT ENT: Negative for dizziness or balance problems Cardio Chest Pain: No Palpitations: No Edema: Bilateral (occasional) Resp Respiratory: Positive for SOB with activity (nothing new or worsening); Negative for SOB at rest or SOB orthopnea SOB lying down GI GI: Negative nausea or heartburn Musc Musc: Negative for balance problems Neuro Neuro: Negative for dizziness, lightheadedness, near syncope, syncope or weakness Endo Endo: Negative for fatigue Cardiology Exam Const Appearance: c (more content not included)... Normal [facility] Ferritinon 01-04-2024 Ferritin [Mass/Vol] 59 ng/mL Normal 26-388 [facility] Comment on above: Performed By: #### L 503.6150, L503.6550 #### [facility] [address] [place], [address] Ironon 01-04-2024 Iron [Mass/Vol] 57 ug/dL Low 65-175 [facility] Comment on above: Performed By: #### L 503.6150, L503.6550 #### [facility] [address] [place], [address] Iron Binding Capacity,Totalo n 01-04-2024 TIBC 356 ug/dL Normal 250-450 [facility] Comment on above: Performed By: #### L 503.6075 #### [facility] [address] [place], [address] CBC W/Diff, Automatedon - Absolute Lymph 2.14 X10 3/uL Normal 0.83-4.51 [facility] Comment on above: Performed By: #### L 500.4100, L500.4050, L100.0100 #### [facility] [address] [place], [address] Absolute Neut 6.2 X10 3/uL Normal 2.0-7.7 [facility] Comment on above: Performed By: #### L 500.4100, L500.4050, L100.0100 #### [facility] [address] [place], [address] Basophils/100 WBC (Bld) 1.2 % High 0-1 [facility] Comment on above: Performed By: #### L 500.4100, L500.4050, L100.0100 #### [facility] [address] [place], [address] Eosinophils/100 WBC (Bld) 4.0 % Normal 0-5 [facility] Comment on above: Performed By: #### L 500.4100, L500.4050, L100.0100 #### [facility] [address] [place], [address] Erythrocyte distribution width (RBC) [Ratio] 14.1 % Normal 11.6-14.6 [facility] Comment on above: Performed By: #### L 500.4100, L500.4050, L100.0100 #### [facility] [address] [place], [address] Hematocrit (Bld) [Volume fraction] 37.5 % Low 40-54 [facility] Comment on above: Performed By: #### L 500.4100, L500.4050, L100.0100 #### [facility] [address] [place], [address] Hemoglobin (Bld) [Mass/Vol] 11.9 g/dL Low 13.0-16.5 [facility] Comment on above: Performed By: #### L 500.4100, L500.4050, L100.0100 #### [facility] [address] [place], [address] IG% 0.700 Normal 0.0-0.9 [facility] Comment on above: Result Comment: IG% - Immature Granulocytes (promyelocytes, myelocytes and metamyelocytes) > 1% indicates that a LEFT SHIFT is Present. Performed By: #### L 500.4100, L500.4050, L100.0100 #### [facility] [address] [place], [address] Lymphocytes/100 WBC (Bld) 22.0 % Normal 19-41 [facility] Comment on above: Performed By: #### L 500.4100, L500.4050, L100.0100 #### [facility] [address] [place], [address] MCH (RBC) [Entitic mass] 26.7 pg Low 27.0-32.0 [facility] Comment on above: Performed By: #### L 500.4100, L500.4050, L100.0100 #### [facility] [address] [place], [address] MCHC (RBC) [Mass/Vol] 31.7 g/dL Low 32-36 [facility] Comment on above: Performed By: #### L 500.4100, L500.4050, L100.0100 #### [facility] [address] [place], [address] MCV (RBC) [Entitic vol] 84.3 fL Normal 80-94 [facility] Comment on above: Performed By: #### L 500.4100, L500.4050, L100.0100 #### [facility] [address] [place], [address] Monocytes/100 WBC (Bld) 8.6 % Normal 0-10 [facility] Comment on above: Performed By: #### L 500.4100, L500.4050, L100.0100 #### [facility] [address] [place], [address] Neutrophils/100 WBC (Bld) 63.5 % Normal 47-70 [facility] Comment on above: Performed By: #### L 500.4100, L500.4050, L100.0100 #### [facility] [address] [place], [address] Nucleated RBC (Bld) [#/Vol] 0 10*3/uL Normal 0-5 [facility] Comment on above: Performed By: #### L 500.4100, L500.4050, L100.0100 #### [facility] [address] [place], [address] Platelet mean volume (Bld) [Entitic vol] 10.2 fL Normal 6.2-12.0 [facility] Comment on above: Performed By: #### L 500.4100, L500.4050, L100.0100 #### [facility] [address] [place], [address] Platelets (Bld) [#/Vol] 310 10*3/uL Normal 150-450 [facility] Comment on above: Performed By: #### L 500.4100, L500.4050, L100.0100 #### [facility] [address] [place], [address] RBC (Bld) [#/Vol] 4.45 10*6/uL Low 4.6-6.2 [facility] Comment on above: Performed By: #### L 500.4100, L500.4050, L100.0100 #### [facility] [address] [place], [address] RDW SD 43.4 fl Normal 35.1-43.9 [facility] Comment on above: Performed By: #### L 500.4100, L500.4050, L100.0100 #### [facility] [address] [place], [address] WBC (Bld) [#/Vol] 9.7 10*3/uL Normal 4.4-11.0 [facility] Comment on above: Performed By: #### L 500.4100, L500.4050, L100.0100 #### [facility] [address] [place], [address] Comprehensive Metabolic Prof ilon 01-03-2024 Albumin [Mass/Vol] 3.8 g/dL Normal 3.2-5.0 [facility] Comment on above: Performed By: #### L 500.4100, L500.4050, L100.0100 #### [facility] [address] [place], [address] Albumin/Globulin [Mass ratio] 1.0 {ratio} Normal 0.9-2.4 [facility] Comment on above: Performed By: #### L 500.4100, L500.4050, L100.0100 #### [facility] [address] [place], [address] ALK P 67 U/L Normal 45-117 [facility] Comment on above: Performed By: #### L 500.4100, L500.4050, L100.0100 #### [facility] [address] [place], [address] ALT [Catalytic activity/Vol] 20 U/L Normal 16-61 [facility] Comment on above: Performed By: #### L 500.4100, L500.4050, L100.0100 #### [facility] [address] [place], [address] AST [Catalytic activity/Vol] 18 U/L Normal 15-37 [facility] Comment on above: Performed By: #### L 500.4100, L500.4050, L100.0100 #### [facility] [address] [place], [address] Bilirubin [Mass/Vol] 0.40 mg/dL Normal 0.20-1.00 [facility] Comment on above: Result Comment: For patients on eltrombopag therapy, use of Dimension [place] TBIL is not recommended. Performed By: #### L 500.4100, L500.4050, L100.0100 #### [facility] [address] [place], [address] BUN/CRE 17.0 RATIO Normal 10-20 [facility] Comment on above: Performed By: #### L 500.4100, L500.4050, L100.0100 #### [facility] [address] [place], [address] CA,Total 9.2 mg/dL Normal 8.5-10.1 [facility] Comment on above: Performed By: #### L 500.4100, L500.4050, L100.0100 #### [facility] [address] [place], [address] Chloride [Moles/Vol] 104 mmol/L Normal 98-107 [facility] Comment on above: Performed By: #### L 500.4100, L500.4050, L100.0100 #### [facility] [address] [place], [address] CO2 [Moles/Vol] 24.0 mmol/L Normal 21.0-32.0 [facility] Comment on above: Performed By: #### L 500.4100, L500.4050, L100.0100 #### [facility] [address] [place], [address] Creatinine [Mass/Vol] 1.12 mg/dL Normal 0.70-1.30 [facility] Comment on above: Result Comment: The validity of the calculated GFR GFRAA in patients over 70 years has not been determined. Clinical correlation is essential. Performed By: #### L 500.4100, L500.4050, L100.0100 #### [facility] [address] [place], [address] EST GFR - AA 85 mL/min Normal >60 [facility] Comment on above: Result Comment: Afri can [place] GFR Calc Performed By: #### L 500.4100, L500.4050, L100.0100 #### [facility] [address] [place], [address] GAP 8 Normal 5-15 [facility] Comment on above: Performed By: #### L 500.4100, L500.4050, L100.0100 #### [facility] [address] [place], [address] GFR/1.73 sq M.predicted among non-blacks MDRD (S/P/Bld) [Vol rate/Area] 70 mL/min/{1.73_m2} Normal >60 [facility] Comment on above: Result Comment: Non- GFR Calc Performed By: #### L 500.4100, L500.4050, L100.0100 #### [facility] [address] [place], [address] Globulin (S) [Mass/Vol] 3.9 g/dL Normal 2.2-4.2 [facility] Comment on above: Performed By: #### L 500.4100, L500.4050, L100.0100 #### [facility] [address] [place], [address] Glucose [Mass/Vol] 97 mg/dL Normal 74-106 [facility] Comment on above: Performed By: #### L 500.4100, L500.4050, L100.0100 #### [facility] [address] [place], [address] Potassium [Moles/Vol] 3.6 mmol/L Normal 3.5-5.1 [facility] Comment on above: Performed By: #### L 500.4100, L500.4050, L100.0100 #### [facility] [address] [place], [address] Sodium [Moles/Vol] 136 mmol/L Normal 136-145 [facility] Comment on above: Performed By: #### L 500.4100, L500.4050, L100.0100 #### [facility] [address] [place], [address] T PROT 7.7 g/dL Normal 6.4-8.2 [facility] Comment on above: Performed By: #### L 500.4100, L500.4050, L100.0100 #### [facility] [address] [place], [address] Urea nitrogen [Mass/Vol] 19 mg/dL High 7-18 [facility] Comment on above: Performed By: #### L 500.4100, L500.4050, L100.0100 #### [facility] [address] [place], [address] Internal Medicine Office Vis iton 01-03-2024 Internal Medicine Office Visit [facility] [address] [place] [address] [place] [address] OFFICE VISIT Date of Service: 01/03/24 MR#: [id number] Acct: [id number] Name: MARY CARBALLO Rep #: [id number] : 1960 Provider: Dr. 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: No Is patient in pain?: No Allergies Latex, Natural Rubber Allergy (Verified 01/03/24 11:21) Rash Medications ???Medication ???Instructions ???Recorded ???Confirmed ???Type multivitamin,tx-iron-m inerals 1 tab PO DIRECTED 03/25/17 01/03/24 History (Complete Multivitamin tablet) tadalafil 5 mg tablet (Cialis) 5 mg PO QDAY 03/25/17 01/03/24 History tamsulosin 0.4 mg capsule (Flomax) 0.4 mg PO QDAY 03/25/17 01/03/24 History aspirin 81 mg tablet,delayed 81 mg PO DAILY #90 tabs 05/31/18 01/03/24 Rx release (Adult Aspirin Regimen) amlodipine 10 mg-valsartan 320 mg 1 tab PO DAILY #90 tabs 06/14/23 01/03/24 Rx tablet dutasteride 0.5 mg capsule 0.5 mg PO QHS 07/26/23 01/03/24 History hydrochlorothiazide 25 mg tablet 25 mg PO QDAY #90 tabs 08/30/23 01/03/24 Rx potassium chloride 10 mEq 10 meq PO QDAY #90 tabs 10/14/23 01/03/24 Rx tablet,extended release Have you fallen in the past year?: No Nurse's Note: Is fasting if labs are needed. [facility] Medical History (Updated 01/03/24 @ 11:[address] Fatuma Jung MD) Colon cancer screening Preventative health care Claudication Essential hypertension Obstructive sleep apnea Excessive daytime sleepiness Atherosclerotic heart disease of [place] coronary artery without angina pectoris Pre-operative cardiovascular examination Frequent PVCs Abnormal stress echo Chronic back pain BPH (benign prostatic hyperplasia) Left axillary hidradenitis Right axillary hidradenitis Hypokalemia Cardiac tamponade Pericardial effusion Hyperlipidemia Dyspnea Surgical History History of left heart catheterization (06/13/18) S/P pericardiocentesis ( 01/2014) hx left axillary hidradenitis Family History Grandfather Prostate cancer Father Prostate cancer Brother Prostate cancer Uncle Prostate cancer Social History (Updated 01/03/24 @ 11:24 by Judi Gutierres MA) adopted: No household members: spouse number of children: 1 current occupational status: employed 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 No acute concerns at this time. Last seen here about 2 years ago. He denies any significant change in personal or family history since his last visit. He states that he has been stable. Last colon cancer screening was in 2018 and a tubular adenoma was noted with recommendation for repeat 3 to 5 years however he is yet to get this done. Denies any dark or bloody stools. Believes that his last colonoscopy was by Dr. Weber. Following up with Dr. Sony bearden, no significant urinary concerns reported. Stays active and no tobacco use. ROS Const Constitutional: No body ache, chills, excessive sweating, fatigue, fever(s), frequent falls, headache(s), snoring, weakness, sleep problems or change in appetite Eyes Eyes: No blurry vision, change in vision, bulging eyes, floaters, visual disturbances, eye pain or Light sensitivity ENT ENT: No abnormal hearing, ear or mastoid pain, tinnitus, balance problems, nosebleed/epistaxis, nasal congestion, headache(s), neck pain or sore throat Resp Respiratory: No cough, excessive phlegm production, pain on inspiration, shortness of breath, snoring or wheezing Cardio Cardiology: No chest pain at rest, chest pain with exertion, excessive sweating, shortness of breath, dyspnea on exertion, lightheadedness, orthopnea or palpitations Gastro GI: No abdominal pain, change in bowel habits, constipation, cramping (more content not included)... Normal [facility] Lipid Profileon 01-03-2024 Cholesterol [Mass/Vol] 187 mg/dL Normal 200 [facility] Comment on above: Result Comment: <200 mg/dL Desirable 200-240 mg/dL Borderline >240 mg/dL High Risk Performed By: #### L 500.4100, L500.4050, L100.0100 #### [facility] [address] [place], [address] Cholesterol in HDL [Mass/Vol] 43 mg/dL Normal [facility] Comment on above: Result Comment: The drugs N-Acetylcysteine and Metamizole may falsely depress this assay. Reference Range HDL <40 mg/dL Low HDL Cholesterol HDL >or= 60 mg/dL High HDL Cholesterol Performed By: #### L 500.4100, L500.4050, L100.0100 #### [facility] [address] [place], [address] Cholesterol in LDL [Mass/Vol] 114 mg/dL Normal 0-130 [facility] Comment on above: Performed By: #### L 500.4100, L500.4050, L100.0100 #### [facility] [address] [place], [address] Cholesterol in VLDL [Mass/Vol] 30 mg/dL Normal 5-40 [facility] Comment on above: Performed By: #### L 500.4100, L500.4050, L100.0100 #### [facility] [address] [place], [address] Triglyceride [Mass/Vol] 150 mg/dL Normal [facility] Comment on above: Result Comment: The drugs N-Acetylcysteine and Metamizole may falsely depress this assay. Serum Triglycerides Reference Interval Normal <150 mg/dL Borderline high 150 - 199 mg/dL High 200 - 499 mg/dL Very High > or = 500 mg/dL Performed By: #### L 500.4100, L500.4050, L100.0100 #### [facility] [address] [place], [address] Basophil percentageOrdered B y: Brian Michelle on 05-28-2023 Basophil percentage 14.00 ng/mL 0.0-4.0 [facility] Comment on above: This test was perfor med using the TPSA assay method for the[employer] chemistry system. Values obtained with differentassay methods cannot be used interchangably.When changing PSA assays in the course of monitoring apatient, additional sequential testing should be carriedout to confirm baseline values. Bilirubin [Mass/Vol] 0.40 mg/dL 0.20-1.00 [facility] Comment on above: For patients on eltr ombopag therapy, use of Dimension [place] TBIL is not recommended. Cholesterol [Mass/Vol] 194 mg/dL <200 [facility] Comment on above: <200 mg/dL Desirable 200-240 mg/dL Borderline >240 mg/dL High Risk Protein [Mass/Vol] 7.7 g/dL 6.4-8.2 [facility] Triglyceride [Mass/Vol] 169 mg/dL <199 [facility] Comment on above: The drugs N-Acetylcy steine and Metamizole may falsely depress this assay.Serum Triglycerides Reference Interval Normal <150 mg/dL Borderline high 150 - 199 mg/dL High 200 - 499 mg/dL Very High > or = 500 mg/dL Direct bilirubinOrdered By: Brian Michelle on 05-28-2023 Bilirubin.direct [Mass/Vol] 0.10 mg/dL 0.00-0.30 [facility] - Chemistry and C hemistry - challengeOrdered By: Brian Michelle on 05-28-2023 ALP [Catalytic activity/Vol] 74 U/L 45-117 [facility] ALT [Catalytic activity/Vol] 21 U/L 16-61 [facility] Cholesterol in HDL [Mass/Vol] 39 mg/dL >40 [facility] Comment on above: The drugs N-Acetylcy steine and Metamizole may falsely depress this assay. Reference Range HDL <40 mg/dL Low HDL Cholesterol HDL >or= 60 mg/dL High HDL Cholesterol Cholesterol in LDL [Mass/Vol] 121 mg/dL 0-130 [facility] Globulin (S) [Mass/Vol] 3.9 g/dL 2.2-4.2 [facility] No Panel InformationOrdered By: Brian Michelle on 05-28-2023 VLDL Cholesterol 34 mg/dL 5-40 [facility] Thin prep Papanicolaou smear with manual screeningOrdered By: Brian Michelle on 05-28-2023 Thin prep Papanicolaou smear with manual screening 3.8 g/dL 3.2-5.0 [facility] Thin prep Papanicolaou smear with manual screening 12 U/L 15-37 [facility] Basophil percentageOrdered B y: Brian Michelle on 06-19-2022 Bilirubin [Mass/Vol] 0.30 mg/dL 0.20-1.00 [facility] Comment on above: For patients on eltr ombopag therapy, use of Dimension [place] TBIL is not recommended. Cholesterol [Mass/Vol] 165 mg/dL <200 [facility] Comment on above: <200 mg/dL Desirable 200-240 mg/dL Borderline >240 mg/dL High Risk Protein [Mass/Vol] 7.5 g/dL 6.4-8.2 [facility] Triglyceride [Mass/Vol] 147 mg/dL <199 [facility] Comment on above: The drugs N-Acetylcy steine and Metamizole may falsely depress this assay.Serum Triglycerides Reference Interval Normal <150 mg/dL Borderline high 150 - 199 mg/dL High 200 - 499 mg/dL Very High > or = 500 mg/dL Direct bilirubinOrdered By: Brian Michelle on 06-19-2022 Bilirubin.direct [Mass/Vol] 0.10 mg/dL 0.00-0.30 [facility] - Chemistry and C hemistry - challengeOrdered By: Brian Michelle on 06-19-2022 ALP [Catalytic activity/Vol] 68 U/L 45-117 [facility] ALT [Catalytic activity/Vol] 19 U/L 16-61 [facility] Globulin (S) [Mass/Vol] 3.8 g/dL 2.2-4.2 [facility] Serum or plasma albumin jarod urement (mass/volume)Ordered By: Brian Michelle on 06-19-2022 Albumin [Mass/Vol] 3.7 g/dL 3.2-5.0 [facility] Serum or plasma cholesterol in HDL measurement (mass/volume)Ordered By: Brian Michelle on 06-19-2022 Cholesterol in HDL [Mass/Vol] 35 mg/dL >40 [facility] Comment on above: The drugs N-Acetylcy steine and Metamizole may falsely depress this assay. Reference Range HDL <40 mg/dL Low HDL Cholesterol HDL >or= 60 mg/dL High HDL Cholesterol Serum or plasma cholesterol in VLDL measurement (mass/volume)Ordered By: Brian Michelle on 06-19-2022 Cholesterol in VLDL [Mass/Vol] 29 mg/dL 5-40 [facility] Serum or plasma low density lipoprotein (LDL) cholesterol measurement (mass/volume)Ordered By: Brian Michelle on 06-19-2022 Cholesterol in LDL [Mass/Vol] 101 mg/dL 0-130 [facility] Thin prep Papanicolaou smear with manual screeningOrdered By: Brian Michelle on 06-19-2022 Thin prep Papanicolaou smear with manual screening 21 U/L 15-37 [facility] No Panel InformationOrdered By: Dr. Olivas on 05-06-2022 Prostate Specific Antigen Total 13.80 ng/mL 0.0-4.0 [facility] Comment on above: This test was perfor med using the TPSA assay method for the[employer] chemistry system. Values obtained with differentassay methods cannot be used interchangably.When changing PSA assays in the course of monitoring apatient, additional sequential testing should be carriedout to confirm baseline values. Absolute lymphocyte counton 12-03-2021 Lymphocytes Auto (Unsp spec) [#/Vol] 2.31 10*3/uL 0.83-4.51 [facility] Work Phone: Basophil percentageon 2021 Basophils/100 WBC (Bld) 1.1 % 0-1 [facility] Work Phone: Bilirubin [Mass/Vol] 0.30 mg/dL 0.20-1.00 [facility] Work Phone: Comment on above: For patients on eltr ombopag therapy, use of Dimension [place] TBIL is not recommended. Chloride [Moles/Vol] 107 mmol/L 98-107 [facility] Work Phone: Cholesterol [Mass/Vol] 162 mg/dL <200 [facility] Work Phone: Comment on above: <200 mg/dL Desirable 200-240 mg/dL Borderline >240 mg/dL High Risk Eosinophils/100 WBC (Bld) 3.3 % 0-5 [facility] Work Phone: [phone] Glucose [Mass/Vol] 104 mg/dL 74-106 [facility] Work Phone: Comment on above: Fasting Glucose resu lt from 100 to 125 mg/dL suggests IMPAIRED HOMEOSTASIS per A.D.A. criteria. Neutrophils (Bld) [#/Vol] 6.3 10*3/uL 2.0-7.7 [facility] Work Phone: Neutrophils/100 WBC (Bld) 62.4 % 47-70 [facility] Work Phone: Potassium [Moles/Vol] 3.8 mmol/L 3.5-5.1 [facility] Work Phone: Protein [Mass/Vol] 7.6 g/dL 6.4-8.2 [facility] Work Phone: Sodium [Moles/Vol] 139 mmol/L 136-145 [facility] Work Phone: Triglyceride [Mass/Vol] 147 mg/dL <199 [facility] Work Phone: Comment on above: The drugs N-Acetylcy steine and Metamizole may falsely depress this assay.Serum Triglycerides Reference Interval Normal <150 mg/dL Borderline high 150 - 199 mg/dL High 200 - 499 mg/dL Very High > or = 500 mg/dL WBC (Bld) [#/Vol] 10.0 10*3/uL 4.4-11.0 [facility] Work Phone: Blood erythrocytes count (nu mber/volume)on 12-03-2021 RBC (Bld) [#/Vol] 4.74 10*6/uL 4.6-6.2 [facility] Work Phone: Blood hemoglobin measurement (mass/volume)on 12-03-2021 Hemoglobin (Bld) [Mass/Vol] 13.0 g/dL 13.0-16.5 [facility] Work Phone: Blood lymphocytes/100 leukoc yteson 12-03-2021 Lymphocytes/100 WBC (Bld) 23.0 % 19-41 [facility] Work Phone: Blood monocytes/100 leukocyt eson 12-03-2021 Monocytes/100 WBC (Bld) 9.8 % 0-10 [facility] Work Phone: Blood platelet mean volumeon 12-03-2021 Platelet mean volume (Bld) [Entitic vol] 10.2 fL 6.2-12.0 [facility] Work Phone: Determination of erythrocyte mean corpuscular volume (MCV)on 12-03-2021 MCV (RBC) [Entitic vol] 85.9 fL 80-94 [facility] Work Phone: Hematocrit Auto (Bld) [Volum e fraction]on 12-03-2021 Hematocrit (Bld) [Volume fraction] 40.7 % 40-54 [facility] Work Phone: Laboratory - Chemistry and C hemistry - challengeon 12-03-2021 ALP [Catalytic activity/Vol] 69 U/L 45-117 [facility] Work Phone: ALT [Catalytic activity/Vol] 21 U/L 16-61 [facility] Work Phone: CO2 [Moles/Vol] 24.0 mmol/L 21.0-32.0 [facility] Work Phone: Globulin (S) [Mass/Vol] 3.8 g/dL 2.2-4.2 [facility] Work Phone: Urea nitrogen/Creatinine [Mass ratio] 13.5 mg/mg 10-20 [facility] Work Phone: Laboratory - Hematology and Cell countson 12-03-2021 Erythrocyte distribution width (RBC) [Entitic vol] 44.6 fL 35.1-43.9 [facility] Work Phone: Erythrocyte distribution width (RBC) [Ratio] 14.2 % 11.6-14.6 [facility] Work Phone: Immature granulocytes/100 WBC (Bld) 0.400 % 0.0-0.9 [facility] Work Phone: Comment on above: IG% - Immature Granu locytes (promyelocytes, myelocytes and metamyelocytes) > 1% indicates that a LEFT SHIFT is Present. MCH (RBC) [Entitic mass] 27.4 pg 27.0-32.0 [facility] Work Phone: Nucleated RBC/100 WBC (Bld) [Ratio] 0 % 0-5 [facility] Work Phone: MCHC Auto (RBC) [Mass/Vol]on 12-03-2021 MCHC (RBC) [Mass/Vol] 31.9 g/dL 32-36 [facility] Work Phone: No Panel Informationon 12-03 Estimated GFR (MDRD) Amer 93 mL/min >60 [facility] Work Phone: Comment on above: GFR Calc Estimated GFR (MDRD) Non-Af Amer 77 mL/min >60 [facility] Work Phone: Comment on above: Non- GFR Calc Platelets bldon 12-03-2021 Platelets (Bld) [#/Vol] 346 10*3/uL 150-450 [facility] Work Phone: Serum or plasma albumin jarod urement (mass/volume)on 12-03-2021 Albumin [Mass/Vol] 3.8 g/dL 3.2-5.0 [facility] Work Phone: Serum or plasma albumin/glob ulin mass ratioon 12-03-2021 Albumin/Globulin [Mass ratio] 1.0 {ratio} 0.9-2.4 [facility] Work Phone: Serum or plasma calcium jarod urement (mass/volume)on 12-03-2021 Calcium [Mass/Vol] 9.4 mg/dL 8.5-10.1 [facility] Work Phone: Serum or plasma cholesterol in HDL measurement (mass/volume)on 12-03-2021 Cholesterol in HDL [Mass/Vol] 35 mg/dL >40 [facility] Work Phone: Comment on above: The drugs N-Acetylcy steine and Metamizole may falsely depress this assay. Reference Range HDL <40 mg/dL Low HDL Cholesterol HDL >or= 60 mg/dL High HDL Cholesterol Serum or plasma cholesterol in VLDL measurement (mass/volume)on 12-03-2021 Cholesterol in VLDL [Mass/Vol] 29 mg/dL 5-40 [facility] Work Phone: Serum or plasma creatinine m easurement (mass/volume)on 12-03-2021 Creatinine [Mass/Vol] 1.04 mg/dL 0.70-1.30 [facility] Work Phone: Comment on above: The validity of the calculated GFR & GFRAA in patients over 70 years has not been determined. Clinical correlation is essential. Serum or plasma low density lipoprotein (LDL) cholesterol measurement (mass/volume)on 12-03-2021 Cholesterol in LDL [Mass/Vol] 98 mg/dL 0-130 [facility] Work Phone: Serum or plasma urea nitroge n measurement (mass/volume)on 12-03-2021 Urea nitrogen [Mass/Vol] 14 mg/dL 7-18 [facility] Work Phone: Thin prep Papanicolaou smear with manual screeningon 12-03-2021 Thin prep Papanicolaou smear with manual screening 16 U/L 15-37 [facility] Work Phone: Thin prep Papanicolaou smear with manual screening 8 5-15 [facility] Work Phone: Basophil percentageon 2021 Bilirubin [Mass/Vol] 0.30 mg/dL 0.20-1.00 [facility] Work Phone: Comment on above: For patients on eltr ombopag therapy, use of Dimension [place] TBIL is not recommended. Cholesterol [Mass/Vol] 190 mg/dL <200 [facility] Work Phone: Comment on above: <200 mg/dL Desirable 200-240 mg/dL Borderline >240 mg/dL High Risk Protein [Mass/Vol] 7.9 g/dL 6.4-8.2 [facility] Work Phone: Triglyceride [Mass/Vol] 144 mg/dL [facility] Work Phone: Comment on above: The drugs N-Acetylcy steine and Metamizole may falsely depress this assay.Serum Triglycerides Reference Interval Normal <150 mg/dL Borderline high 150 - 199 mg/dL High 200 - 499 mg/dL Very High > or = 500 mg/dL Direct bilirubinon Bilirubin.direct [Mass/Vol] 0.10 mg/dL 0.00-0.30 [facility] Work Phone: Laboratory - Chemistry and C hemistry - challengeon 06-21-2021 ALP [Catalytic activity/Vol] 67 U/L 45-117 [facility] Work Phone: ALT [Catalytic activity/Vol] 27 U/L 16-61 [facility] Work Phone: Globulin (S) [Mass/Vol] 4.1 g/dL 2.2-4.2 [facility] Work Phone: Serum or plasma albumin jarod urement (mass/volume)on 06-21-2021 Albumin [Mass/Vol] 3.8 g/dL 3.2-5.0 [facility] Work Phone: Serum or plasma cholesterol in HDL measurement (mass/volume)on 06-21-2021 Cholesterol in HDL [Mass/Vol] 38 mg/dL [facility] Work Phone: Comment on above: The drugs N-Acetylcy steine and Metamizole may falsely depress this assay. Reference Range HDL <40 mg/dL Low HDL Cholesterol HDL >or= 60 mg/dL High HDL Cholesterol Serum or plasma cholesterol in VLDL measurement (mass/volume)on 06-21-2021 Cholesterol in VLDL [Mass/Vol] 29 mg/dL 5-40 [facility] Work Phone: Serum or plasma low density lipoprotein (LDL) cholesterol measurement (mass/volume)on 06-21-2021 Cholesterol in LDL [Mass/Vol] 123 mg/dL 0-130 [facility] Work Phone: Thin prep Papanicolaou smear with manual screeningon 06-21-2021 Thin prep Papanicolaou smear with manual screening 22 U/L 15-37 [facility] Work Phone: No Panel Informationon 04-22 Prostate Specific Antigen Total 13.10 ng/mL 0.0-4.0 [facility] Work Phone: Comment on above: This test was perfor med using the TPSA assay method for Bio chemistry system. Values obtained with differentassay methods cannot be used interchangably.When changing PSA assays in the course of monitoring apatient, additional sequential testing should be carriedout to confirm baseline values. Laboratory - Microbiology an d Antimicrobial susceptibilityon 04-16-2021 SARS-CoV-2 (COVID-19) RNA VENU+probe Ql (Unsp spec) Detected Not Detect [facility] Work Phone: Comment on above: Normal Reference Ran ge: Not DetectedMethod:(RT-PCR) real-time reverse transcriptase PCRLuminex Whois Instrument*The Food and Drug Administration (FDA) has issued an Emergency Use Authorization (EAU) for the Whois SARS-CoV-2 Assay for the rapid detection of the virus that causes COVID-19. This test has been validated, but the FDAs independent review of this validation is pending.*Negative results do not preclude infection and should not be used as the sole basis for treatment or patient management. Optimum specimen types and timing for peak viral levels during infections caused by SARS-CoV-2 have not been determined. Collection of multiple specimens from the same patient may be necessary to detect the virus. The possibility of a false negative result should be considered if the patient has clinical presentation or has had recent exposure. CNOVon 10-03-2018 CNOV Office Visit ([facility] ) JAZMIN CARBALLO ([id number]) 1960 M Date Time Provider Department 10/03/18 6:45 PM LUDIVINA FONTAINE) [facility] During your visit today, we recorded the following information about you: Temperature Pulse Respiration Blood pressure 97.8 degrees 68/minute 16/minute 122/68 Weight 113.4 kg Ludivina Fontaine PA-C 10/03/2018 7:31 PM Signed Subjective HPI HPI Jazmin Carballo is a 58 year old male who presents today for CC of sinus pressure, rhinorrhea, ears popping, and spitting stuff up since . Nasal congestion. Feeling a little chest congestion and SOB. Notes that he has R ear pain. States that he's nervous because he had pneumonia, that led to a pericardial effusion- this was about 4 years okay. Pt has tried Afrin and corcidin, Tylenol severe sinus. BP 122/68 Pulse 68 Temp 36.6 ?C (97.8 ?F) (Tympanic) Resp 16 Wt 113.4 kg (250 lb) SpO2 96% BMI 35.36 kg/m? ALLERGIES Allergen Reactions - Latex, Natural Rubb* Hives ACTIVE PROBLEM LIST Hypertension Prediabetes Hyperlipidemia Rotator Cuff Syndrome Anemia Bph (Benign Prostatic Hypertrophy) With Urinary Obstruction Family History of Prostate Cancer Pericardial Effusion Family History Problem Relation Age of Onset - Arthritis Mother - COPD Father copper exposure on O2 - Diabetes Maternal Grandmother - Prostate Cancer Paternal Grandfather - Prostate Cancer Maternal Grandfather - Prostate Cancer Paternal Uncle Social History Socioeconomic History Marital status: Spouse name: Not on file Number of children: Not on file Years of education: Not on file Highest education level: Not on file Social Needs Financial resource strain: Not on file Food insecurity - worry: Not on file Food insecurity - inability: Not on file Transportation needs - medical: Not on file Transportation needs - non-medical: Not on file Occupational History Not on file Tobacco Use Smoking status: Former Smoker Packs/day: 1.00 Years: 15.00 Pack years: 15 Types: Cigarettes Quit date: 11/29/1994 Years since quittin.8 Smokeless tobacco: Never Used Substance and Sexual Activity Alcohol use: Yes Comment: 2 beers a month Drug use: No Sexual activity: Yes Partners: Female Other Topics Concerns: Not on file Social History Narrative Not on file Review of Systems Constitutional: Negative for chills, fever and malaise/fatigue. HENT: Positive for congestion, ear pain (L ear popping ) and sinus pain. Negative for ear discharge and sore throat. Respiratory: Positive for cough (I'm not coughing as bad as I was but it's still coming here and there- productive with clear sputum)). Negative for sputum production, shortness of breath and wheezing. Cardiovascular: Negative for chest pain. Neurological: Negative for headaches. Objective Physical Exam Constitutional: He is oriented to person, place, and time and well-developed, well-nourished, and in no distress. HENT: Head: Normocephalic and atraumatic. Right Ear: External ear and ear canal normal. Tympanic membrane is retracted. Tympanic membrane is not injected, not perforated, not erythematous and not bulging. No middle ear effusion. Left Ear: External ear and ear canal normal. Tympanic membrane is retracted. Tympanic membrane is not injected, not perforated, not erythematous and not bulging. No middle ear effusion. Nose: Mucosal edema and rhinorrhea (Clear) present. Right sinus exhibits no maxillary sinus tenderness and no frontal sinus tenderness. Left sinus exhibits no maxillary sinus tenderness and no frontal sinus tenderness. Mouth/Throat: Uvula is midline, oropharynx is clear and moist and mucous membranes are normal. No oropharyngeal exudate, posterior oropharyngeal edema, posterior oropharyngeal erythema or tonsillar abscesses. Neck: Normal range of motion. Cardiovascular: Normal rate, regular rhythm and normal heart sounds. Pulmonary/Chest: Effort normal. No accessory muscle usage. No respiratory distress. He has decreased breath sounds (Mildly diminishede breath sounds bilat). He has no wheezes. He has no rhonchi. He has no rales. Lymphadenopathy: Head (right side): No submental, no submandibular, no tonsillar, no preauricular, no posterior auricular and no occipital adenopathy present. Head (left side): No submental, no submandibular, no tonsillar, no preauricular, no posterior auricular and no occipital adenopathy present. He has no cervical adenopathy. Right cervical: No superficial cervical and no posterior cervical adenopathy present. Left cervical: No superficial cervical and no posterior cervical adenopathy present. Neurological: He is alert and oriented to person, place, and time. Skin: Skin is warm and dry. Psychiatric: Affect normal. Nursing note and vitals reviewed. ASSESSMENT/PLAN: 1. Sinobronchitis - ICD9: 473.9, 490, ICD10: J32.9, J40 (primary diagnosis) - Supportive care with plenty of fluids, rest, and analgesia prn. - Rx for prednisone burst x 5 days and scheduled albuterol dosing; Discussed medication indications, proper use, and potential adverse effects. All questions and concerns addressed to patient satisfaction. Safety rx printed for Augmentin in the case symptoms would progress, due to his history of getting bad rather quickly - PREDNISONE 20 MG TABLET - ALBUTEROL SULFATE HFA 90 MCG/ACTUATION AEROSOL INHALER - AMOXICILLIN 875 MG-POTASSIUM CLAVULANATE 125 MG TABLET 2. ETD (Eustachian tube dysfunction), bilateral - ICD9: 381.81, ICD10: H69.83 CCM with corcidin; Rx for prednisone will help with underlying nasal congestion and associated ETD - PREDNISONE 20 MG TABLET 3. History of pneumonia - ICD9: V12.61, ICD10: Z87.01 - AMOXICILLIN 875 MG-POTASSIUM CLAVULANATE 125 MG TABLET See above Pt advised to see PCP if symptoms persist or progress. Reviewed red flags with patient and when to seek care sooner. The patient indicates understanding of these issues and agrees with the plan. Ludivina Fontaine PA-C Referring Provider: SELF [200] Allergies As of Date: 10/03/2018 Noted Allergy Reaction LATEX, NATURAL RUBBER 11/29/2009 4 - Hives Date Reviewed: 10/03/2018 Reviewed by: Tiffany Tobias Ma - Fully Assessed Reason for Visit: Sinus Problem [99] Cmt: sinus and ear pressure, drainage, headache x 5 days Primary Visit Diagnosis:Sinobronchit is [J32.9, J40] Other Visit Diagnoses:ETD (Eustachian tube dysfunction), bilateral [H69.83] History of pneumonia [Z87.01] Order(s):predniSONE (DELTASONE) 20 mg tabletTake 2 tablets by mouth once daily for 5 days.Disp: 10 tabletRfl: 0 albuterol HFA (PROAIR HFA) 90 mcg/actuation inhalerInhale 2 Puffs as instructed every 4 hours as needed.Disp: 1 InhalerRfl: 0 amoxicillin-clavulanic acid (AUGMENTIN) 875-125 mg per tabletTake 1 tablet by mouth twice daily for 10 days.Disp: 20 tabletRfl: 0 Prescriptions as of 10/03/2018 Sig: HYDROCHLOROTHIAZIDE 25 MG TAB* HYDROCHLOROTHIAZIDE 25 MG TABS TADALAFIL 5 MG TABLET Take 5 mg by mouth. POTASSIUM CHLORIDE ER 10 MEQ * Take 10 mEq by mouth twice da* MULTI-VITAMIN ORAL Take by mouth. FLOMAX ORAL Take by mouth. TRIAMCINOLONE ACETONIDE 0.1 %* Apply 1 application to affect* AMLODIPINE 10 MG-VALSARTAN 16* Take 1 tablet by mouth once d* CONTOUR TEST STRIPS Test Blood sugars once daily ATORVASTATIN 20 MG TABLET Take 20 mg by mouth daily at * PREDNISONE 20 MG TABLET Take 2 tablets by mouth once * ALBUTEROL SULFATE HFA 90 MCG/* Inhale 2 Puffs as instructed * AMOXICILLIN 875 MG-POTASSIUM * Take 1 tablet by mouth twice * HYDROCHLOROTHIAZIDE 12.5 MG C* Take 1 capsule by mouth once * Patient taking differently: Take 25 mg by mouth once gage* Problem List As Of Date 10/03/2018 Noted Resolved Hypertension [I10] INVALID FOR* Prediabetes [R73.03] INVALID FOR* Hyperlipidemia [E78.5] INVALID FOR* Rotator cuff syndrome [M75.100] INVALID FOR* Anemia [D64.9] INVALID FOR* BPH (benign prostatic hypertrophy) with urinary*INVALID FOR* Family history of prostate cancer [Z80.42] INVALID FOR* Pericardial effusion [I31.3] INVALID FOR* Prescriptions ordered this encounter Disp Refills Start End PREDNISONE 20 MG TABLET 10 t* 0 10/03/2018 10/08/2018 Route: ORAL Sig: Take 2 tablets by mouth once daily for 5 days. ALBUTEROL SULFATE HFA 90 MCG/ACTUATI* 1 In* 0 10/03/2018 Cmt: Generic or brand: dispense inhaler preferred by patient/insurance unless GENI flag is selected. Route: INHALATION Sig: Inhale 2 Puffs as instructed every 4 hours as needed. AMOXICILLIN 875 MG-POTASSIUM CLAVULA* 20 t* 0 10/03/2018 10/13/2018 Class: Print RX Route: ORAL Sig: Take 1 tablet by mouth twice daily for 10 days. Encounter Status:Closed by LUDIVINA FONTAINE on 10/03/18 Normal [facility] PROGRESSon 10-03-2018 Protein mass conc HNO ID: [id number] Author: Ludivina Fontaine (Pa) Service: ? Author Type: Physician Deli Associate Type: Progress Notes Filed: 10/03/2018 7:31 PM Note Text: Subjective HPI HPI Jazmin Carballo is a 58 year old male who presents today for CC of sinus pressure, rhinorrhea, ears popping, and spitting stuff up since . Nasal congestion. Feeling a little chest congestion and SOB. Notes that he has R ear pain. States that he's nervous because he had pneumonia, that led to a pericardial effusion- this was about 4 years okay. Pt has tried Afrin and corcidin, Tylenol severe sinus. BP 122/68 Pulse 68 Temp 36.6 ?C (97.8 ?F) (Tympanic) Resp 16 Wt 113.4 kg (250 lb) SpO2 96% BMI 35.36 kg/m? ALLERGIES Allergen Reactions - Latex, Natural Rubb* Hives ACTIVE PROBLEM LIST Hypertension Prediabetes Hyperlipidemia Rotator Cuff Syndrome Anemia Bph (Benign Prostatic Hypertrophy) With Urinary Obstruction Family History of Prostate Cancer Pericardial Effusion Family History Problem Relation Age of Onset - Arthritis Mother - COPD Father copper exposure on O2 - Diabetes Maternal Grandmother - Prostate Cancer Paternal Grandfather - Prostate Cancer Maternal Grandfather - Prostate Cancer Paternal Uncle Social History Socioeconomic History Marital status: Spouse name: Not on file Number of children: Not on file Years of education: Not on file Highest education level: Not on file Social Needs Financial resource strain: Not on file Food insecurity - worry: Not on file Food insecurity - inability: Not on file Transportation needs - medical: Not on file Transportation needs - non-medical: Not on file Occupational History Not on file Tobacco Use Smoking status: Former Smoker Packs/day: 1.00 Years: 15.00 Pack years: 15 Types: Cigarettes Quit date: 11/29/1994 Years since quittin.8 Smokeless tobacco: Never Used Substance and Sexual Activity Alcohol use: Yes Comment: 2 beers a month Drug use: No Sexual activity: Yes Partners: Female Other Topics Concerns: Not on file Social History Narrative Not on file Review of Systems Constitutional: Negative for chills, fever and malaise/fatigue. HENT: Positive for congestion, ear pain (L ear popping ) and sinus pain. Negative for ear discharge and sore throat. Respiratory: Positive for cough (I'm not coughing as bad as I was but it's still coming here and there- productive with clear sputum)). Negative for sputum production, shortness of breath and wheezing. Cardiovascular: Negative for chest pain. Neurological: Negative for headaches. Objective Physical Exam Constitutional: He is oriented to person, place, and time and well-developed, well-nourished, and in no distress. HENT: Head: Normocephalic and atraumatic. Right Ear: External ear and ear canal normal. Tympanic membrane is retracted. Tympanic membrane is not injected, not perforated, not erythematous and not bulging. No middle ear effusion. Left Ear: External ear and ear canal normal. Tympanic membrane is retracted. Tympanic membrane is not injected, not perforated, not erythematous and not bulging. No middle ear effusion. Nose: Mucosal edema and rhinorrhea (Clear) present. Right sinus exhibits no maxillary sinus tenderness and no frontal sinus tenderness. Left sinus exhibits no maxillary sinus tenderness and no frontal sinus tenderness. Mouth/Throat: Uvula is midline, oropharynx is clear and moist and mucous membranes are normal. No oropharyngeal exudate, posterior oropharyngeal edema, posterior oropharyngeal erythema or tonsillar abscesses. Neck: Normal range of motion. Cardiovascular: Normal rate, regular rhythm and normal heart sounds. Pulmonary/Chest: Effort normal. No accessory muscle usage. No respiratory distress. He has decreased breath sounds (Mildly diminishede breath sounds bilat). He has no wheezes. He has no rhonchi. He has no rales. Lymphadenopathy: Head (right side): No submental, no submandibular, no tonsillar, no preauricular, no posterior auricular and no occipital adenopathy present. Head (left side): No submental, no submandibular, no tonsillar, no preauricular, no posterior auricular and no occipital adenopathy present. He has no cervical adenopathy. Right cervical: No superficial cervical and no posterior cervical adenopathy present. Left cervical: No superficial cervical and no posterior cervical adenopathy present. Neurological: He is alert and oriented to person, place, and time. Skin: Skin is warm and dry. Psychiatric: Affect normal. Nursing note and vitals reviewed. ASSESSMENT/PLAN: 1. Sinobronchitis - ICD9: 473.9, 490, ICD10: J32.9, J40 (primary diagnosis) - Supportive care with plenty of fluids, rest, and analgesia prn. - Rx for prednisone burst x 5 days and scheduled albuterol dosing; Discussed medication indications, proper use, and potential adverse effects. All questions and concerns addressed to patient satisfaction. Safety rx printed for Augmentin in the case symptoms would progress, due to his history of getting bad rather quickly - PREDNISONE 20 MG TABLET - ALBUTEROL SULFATE HFA 90 MCG/ACTUATION AEROSOL INHALER - AMOXICILLIN 875 MG-POTASSIUM CLAVULANATE 125 MG TABLET 2. ETD (Eustachian tube dysfunction), bilateral - ICD9: 381.81, ICD10: H69.83 CCM with corcidin; Rx for prednisone will help with underlying nasal congestion and associated ETD - PREDNISONE 20 MG TABLET 3. History of pneumonia - ICD9: V12.61, ICD10: Z87.01 - AMOXICILLIN 875 MG-POTASSIUM CLAVULANATE 125 MG TABLET See above Pt advised to see PCP if symptoms persist or progress. Reviewed red flags with patient and when to seek care sooner. The patient indicates understanding of these issues and agrees with the plan. Ludivina Fontaine PA-C Normal [facility] MRI PROSTATE WO/W IVCONon Protein mass conc * * *Final Report* * * DATE OF EXAM: Jun 03 2018 10:10AM [facility] 0751 - MRI PROSTATE WO/W IVCON / PROCEDURE REASON: ELEVATED PSA * * * * Physician Interpretation * * * * EXAMINATION: MRI PELVIS WITHOUT AND WITH CONTRAST (MULTIPARAMETRIC PROSTATE MRI): 06/03/2018 CLINICAL HISTORY: 57-year-old man elevated PSA, being evaluated for prostate cancer. Previous biopsy: Negative 2012. PSA: 11.7 ng/mL (2019) 10 ng/mL in 2016. Prior therapy: None. TECHNIQUE: Multiparametric MRI of the prostate and pelvis performed on a 3T (kinkonyr) MR system utilizing a torso phased array coil. Sequences obtained: Sagittal, axial and coronal high resolution T2-WI with small wbqdr-ml-utre; Axial diffusion weighted images with multiple B-values and creation of ADC-maps; Dynamic contrast enhanced T1-weighted images through the prostate were also obtained before, during and after the administration of intravenous gadolinium. Subsequently, larger field of view 3D T1 weighted axial images were obtained through the pelvis. Prostate dimension, volume and pharmacokinetics were obtained using a semi-automated software ([employer]). M: MRPro_2 Contrast: IV administration of 20 ml of Dotarem COMPARISON: None RESULT: Prostate: Dimensions: 7.8 x 6.6 x 7.7 cm corresponding to a volume of approximately 180 cc. Peripheral zone: No focal abnormalities with imaging features concerning for prostate cancer. Transition zone: There is marked transition zone hypertrophy, without focal abnormalities suspicious for clinically significant disease. Central zone: The central zone is not well seen. Neurovascular bundle: Unremarkable. Seminal vesicles: Unremarkable. Adjacent Organ Involvement: None. Lymphadenopathy: None Other Findings: None significant. IMPRESSION: TRANSITION ZONE HYPERTROPHY WITHOUT FOCAL LESION SUSPICIOUS FOR CLINICALLY SIGNIFICANT PROSTATE CANCER. NO LYMPHADENOPATHY. Data Management: PSCB Transcribe Date/Time: Jun 03 2018 10:28A Dictated by : CALLIE ASHTON MD This examination was interpreted and the report reviewed and electronically signed by: CARIN CASON MD on Jun 03 2018 12:14PM EST [id number] Normal [facility] PROGRESSon 06-03-2018 Protein mass conc HNO ID: [id number] Author: David Lockwood Mri-T Service: (none) Author Type: (none) Type: Progress Notes Filed: 06/03/2018 9:59 AM Note Text: Radiology Service Progress Note PATIENT NAME: Jazmin Carballo DATE OF SERVICE: June 03, 2018 TIME: 9:59 AM PATIENT IDENTITY VERIFICATION COMPLETED USING TWO (2) METHODS: Patient confirmed name verbally and ID band matches.. PATIENT GENDER DATA: Male PATIENT RELEVANT IMPLANT DATA REVIEWED: Yes RADIOLOGY DEPARTMENT: MR; Exam(s) Completed: Body: Prostate PERIPHERAL IV DATA: Site assessment: Clean,Dry and Intact, Site disposition Discontinued SIGNED BY: David Lockwood Mri-T June 03, 2018 9:59 AM Normal [facility] Protein mass conc HNO ID: [id number] Author: Dedrick RyanRn) ASIA Garcia Service: Nursing Author Type: Registered Nurse Type: Progress Notes Filed: 06/03/2018 8:57 AM Note Text: Radiology Service Progress Note DATE OF SERVICE: June 03, 2018 TIME: 8:51 AM PATIENT WEIGHT: 250LBS PATIENT IDENTITY VERIFICATION COMPLETED USING TWO (2) METHODS: Patient confirmed name verbally and ID band matches.. PATIENT GENDER DATA: Male ALLERGIES: Reviewed and unchanged CONTRAST ALLERGY: NO. EXAM: MRI - CONTRAST TYPE: GROUP II IV SITE: Ambulatory: A peripheral IV was started in the Right antecubital site with a Angio cath: 22 gauge. and A Saline lock was inserted per protocol IV SITE APPEARANCE: Clean,Dry and Intact SIGNATURE: Dedrick Garcia RN PATIENT NAME: Jazmin Carballo DATE: June 03, 2018 TIME: 8:51 AM Normal [facility] Lab Report: Lipid Profileon 03-30-2017 Cholesterol 180 mg/dL Invalid Interpretation Code 200 [facility] Work Phone: [phone] HDL Cholesterol 35 mg/dL Low [facility] [employer] Work Phone: [phone] LDL Cholesterol 107 mg/dL Invalid Interpretation Code 0-130 [facility] [employer] Work Phone: [phone] Triglyceride 192 mg/dL Invalid Interpretation Code [employer] Work Phone: [phone] very low density lipoproteins 38 mg/dL Invalid Interpretation Code 5-40 [facility] Work Phone: [phone] Lab Report: Liver Profileon 03-30-2017 Alanine aminotransferase (ALT) 25 U/L Invalid Interpretation Code 12-78 [facility] Work Phone: [phone] Albumin 3.8 g/dL Invalid Interpretation Code 3.4-5.0 [facility] Work Phone: [phone] Alkaline phosphatase (ALP) 68 U/L Invalid Interpretation Code 45-117 [facility] Work Phone: [phone] Aspartate aminotransferase (AST) 22 U/L Invalid Interpretation Code 15-37 [facility] Work Phone: [phone] Bilirubin (direct) 0.10 mg/dL Invalid Interpretation Code 0.00-0.30 [facility] Work Phone: [phone] Bilirubin (total) 0.50 mg/dL Invalid Interpretation Code 0.20-1.00 [facility] Work Phone: [phone] Globulin 3.8 g/dL Invalid Interpretation Code 2.2-4.2 [facility] Work Phone: [phone] Protein 7.6 g/dL Invalid Interpretation Code 6.4-8.2 [facility] Work Phone: [phone] Lab Report: PSA,Total - Katt al Screenon 03-01-2017 PSA,TOT SCREEN 8.33 ng/mL High 0.00-4.00 [facility] Work Phone: [phone] Lab Report: Basic Metabolic Profile (BMP)on 12-17-2016 Anion gap 7 mmol/L Invalid Interpretation Code 5-15 [facility] Work Phone: [phone] Anion gap molar conc 7 mmol/L 5-15 [facility] Work Phone: [phone] Calcium mass conc 8.9 mg/dL Invalid Interpretation Code 8.5-10.1 [facility] Work Phone: [phone] Chloride molar conc 105 mmol/L Invalid Interpretation Code 98-107 [facility] Work Phone: [phone] CO2 27.0 mmol/L Invalid Interpretation Code 21.0-32.0 [facility] Work Phone: [phone] CO2 ppres (BldV) 27.0 mmol/L 21.0-32.0 [facility] Medicine Work Phone: [phone] Creatinine mass conc 0.93 mg/dL Invalid Interpretation Code 0.70-1.30 [facility] Work Phone: [phone] eGFR (non-black) 107 mL/min/{1.73_m2} Invalid Interpretation Code >60 [facility] Work Phone: [phone] EST GFR - AA 107 mL/min >60 [facility] Work Phone: [phone] GFR/1.73 sq M predicted among non-blacks MDRD vol rate/area (S/P/Bld) 88 mL/min/{1.73_m2} Invalid Interpretation Code >60 [facility] Work Phone: [phone] Glucose mass conc 129 mg/dL High 70-110 [facility] Work Phone: [phone] Potassium molar conc 3.5 mmol/L Invalid Interpretation Code 3.5-5.1 [facility] Work Phone: [phone] Sodium molar conc 139 mmol/L Invalid Interpretation Code 136-145 [facility] Work Phone: [phone] Urea nitrogen mass conc 8 mg/dL Invalid Interpretation Code 7-18 [facility] Work Phone: [phone] Urea nitrogen/Creatinine mass ratio 8.6 RATIO Low 10-20 [facility] Work Phone: [phone] Lab Report: Basic Metabolic Profile (BMP)on 11-21-2016 Anion gap 7 mmol/L Invalid Interpretation Code 5-15 [facility] Work Phone: [phone] BUN/Creatinine Ratio 12.5 RATIO Invalid Interpretation Code 10-20 [facility] Work Phone: [phone] Calcium 8.9 mg/dL Invalid Interpretation Code 8.5-10.1 [facility] Work Phone: [phone] Chloride 105 mmol/L Invalid Interpretation Code 98-107 [facility] Work Phone: [phone] CO2 28.0 mmol/L Invalid Interpretation Code 21.0-32.0 [facility] Work Phone: [phone] Creatinine 1.04 mg/dL Invalid Interpretation Code 0.70-1.30 [facility] Work Phone: [phone] eGFR (non-black) 78 mL/min/{1.73_m2} Invalid Interpretation Code >60 [facility] Work Phone: [phone] eGFR (non-black) 94 mL/min/{1.73_m2} Invalid Interpretation Code >60 [facility] Work Phone: [phone] Glucose 108 mg/dL Invalid Interpretation Code 70-110 [facility] Work Phone: [phone] Potassium 3.4 mmol/L Low 3.5-5.1 [facility] Work Phone: [phone] Sodium 140 mmol/L Invalid Interpretation Code 136-145 [facility] Work Phone: [phone] Urea nitrogen 13 mg/dL Invalid Interpretation Code 7-18 [facility] Work Phone: [phone] Lab Report: CBC W/Diff, Auto matedon 11-21-2016 Absolute Neut 7.4 X10 3/UL Invalid Interpretation Code 2.0-7.7 [facility] Work Phone: [phone] Basophils/100 leukocytes 0.6 % Invalid Interpretation Code 0-1 [facility] Work Phone: [phone] Basophils/100 WBC (Bld) 0.6 % 0-1 [facility] Work Phone: [phone] Eosinophils/100 leukocytes 3.0 % Invalid Interpretation Code 0-5 [facility] Work Phone: [phone] Eosinophils/100 WBC (Bld) 3.0 % 0-5 [facility] Work Phone: [phone] Erythrocyte distribution width Ratio (RBC) 42.5 fL 35.1-43.9 [facility] Work Phone: [phone] Erythrocyte distribution width Ratio (RBC) 14.1 % 11.6-14.6 [facility] Work Phone: [phone] Erythrocytes (RBC) 4.81 10*6/uL Invalid Interpretation Code 4.6-6.2 [facility] Work Phone: [phone] Hematocrit (HCT) 40.0 % Invalid Interpretation Code 40-54 [facility] Work Phone: [phone] Hematocrit Volume Fraction (Bld) 40.0 % 40-54 [facility] Work Phone: [phone] Hemoglobin (HGB) 13.3 g/dL Invalid Interpretation Code 13.0-16.5 [facility] Work Phone: [phone] Immature granulocytes #/vol (Bld) 0.600 % 0.0-0.9 [facility] Work Phone: [phone] immature granulocytes, percentage of total cells, blood 0.600 % Invalid Interpretation Code 0.0-0.9 [facility] Work Phone: [phone] Immature granulocytes/100 WBC (Bld) 0.600 % Invalid Interpretation Code 0.0-0.9 [facility] Work Phone: [phone] Lymphocytes 3.02 X10 3/UL Invalid Interpretation Code 0.83-4.51 [facility] Work Phone: [phone] Lymphocytes #/vol (Bld) 3.02 X10 3/UL 0.83-4.51 [facility] Work Phone: [phone] Lymphocytes/100 leukocytes 25.3 % Invalid Interpretation Code 19-41 [facility] Work Phone: [phone] Lymphocytes/100 WBC (Bld) 25.3 % 19 [facility] Work Phone: [phone] MCH 27.7 pg Invalid Interpretation Code 27.0-32.0 [facility] Work Phone: [phone] MCH Entitic mass (RBC) 27.7 pg 27.0-32.0 [facility] Work Phone: [phone] MCHC 33.3 G/GL Invalid Interpretation Code 32-36 [facility] Work Phone: [phone] MCHC mass conc (RBC) 33.3 G/GL 32-36 [facility] Work Phone: [phone] MCV 83.2 fL Invalid Interpretation Code 80-94 [facility] Work Phone: [phone] MCV Entitic volume (RBC) 83.2 fL 80-94 [facility] Work Phone: [phone] Monocytes/100 leukocytes 8.7 % Invalid Interpretation Code 0-10 [facility] Work Phone: [phone] Monocytes/100 WBC (Bld) 8.7 % 0-10 [facility] Work Phone: [phone] neutrophil count, blood 7.4 X10 3/UL Invalid Interpretation Code 2.0-7.7 [facility] Work Phone: [phone] Neutrophils #/vol (Bld) 7.4 X10 3/UL 2.0-7.7 [facility] Work Phone: [phone] Neutrophils/100 leukocytes 61.8 % Invalid Interpretation Code 47-70 [facility] Work Phone: [phone] Neutrophils/100 WBC (Bld) 61.8 % 47-70 [facility] Work Phone: [phone] Platelet mean volume Entitic volume (Bld) 9.9 fL 6.2-12.0 [facility] Work Phone: [phone] Platelets 341 10*3/mm3 Invalid Interpretation Code 150-450 [facility] Work Phone: [phone] Platelets #/vol (Bld) 341 10*3/mm3 150-[address] [facility] Internal [facility] Work Phone: [phone] PMV by Ramos-Emmie 9.9 fL Invalid Interpretation Code 6.2-12.0 [facility] Work Phone: [phone] RBC #/vol (Bld) 4.81 10*6/uL 4.6-6.2 [facility] Internal Medicine Work Phone: [phone] RDW SD 42.5 fL Invalid Interpretation Code 35.1-43.9 [facility] Work Phone: [phone] RDW-CA 14.1 % Invalid Interpretation Code 11.6-14.6 [facility] Work Phone: [phone] red blood cell distribution width, size density 42.5 fL Invalid Interpretation Code 35.1-43.9 [facility] Work Phone: [phone] WBC #/vol (Bld) 12.0 10*3/uL High 4.4-11.0 [facility] Internal Medicine Work Phone: [phone] WBC (Leukocytes) 12.0 10*3/uL High 4.4-11.0 [facility] Work Phone: [phone] Lab Report: Hemoglobin A1con 11-21-2016 HbA1c 6.3 % Invalid Interpretation Code 4.2-6.3 [facility] Work Phone: [phone] Lab Report: Lipid Profileon 11-21-2016 Cholesterol 149 mg/dL Invalid Interpretation Code 200 [facility] Work Phone: [phone] HDL Cholesterol 33 mg/dL [facility] Work Phone: [phone] LDL Cholesterol 82 mg/dL Invalid Interpretation Code 0-130 [facility] Work Phone: [phone] Triglyceride 168 mg/dL Invalid Interpretation Code [facility] Work Phone: [phone] very low density lipoproteins 34 mg/dL Invalid Interpretation Code 5-40 [facility] Work Phone: [phone] Lab Report: T4 Free Directon 11-21-2016 Thyroxine (T4) free 1.02 ng/dL Invalid Interpretation Code 0.76-1.46 [facility] Work Phone: Lab Report: Thyroid Stim Hor monica (TSH)on 11-21-2016 Thyroid stimulating hormone (TSH) 3.30 u[iU]/mL Invalid Interpretation Code 0.358-3.74 [facility] Work Phone: Office Visit: New Pt. Visito n 11-06-2016 Documentation of current medications (procedure) Done Invalid Interpretation Code [facility] Fall risk assessment No Invalid Interpretation Code [facility] Protein mass conc Done [facility] Work Phone: Tobacco smoking status NHIS Tobacco smoking status NHIS Invalid Interpretation Code [facility] Work Phone: [phone] Tobacco smoking status NHIS Former smoker [facility] Work Phone: Tobacco use [facility] Former smoker Invalid Interpretation Code [facility] Office Visiton 09-10-2016 Documentation of current medications (procedure) Done Invalid Interpretation Code [facility] Lab Report: Basic Metabolic Profile (BMP)on 08-31-2016 Anion gap 9 mmol/L Invalid Interpretation Code 08-31 [facility] Work Phone: [phone] Anion gap [Moles/Vol] 9 mmol/L 5 [facility] Work Phone: [phone] BUN/Creatinine Ratio 15.2 RATIO Invalid Interpretation Code 10-20 [facility] Work Phone: [phone] Calcium 9.0 mg/dL Invalid Interpretation Code 8.5-10.1 [facility] Work Phone: [phone] Chloride 102 mmol/L Invalid Interpretation Code 98-107 [facility] Work Phone: [phone] CO2 27.0 mmol/L Invalid Interpretation Code 21.0-32.0 [facility] Work Phone: [phone] CO2 (BldV) [Partial pressure] 27.0 mmol/L 21.0-32.0 [facility] Work Phone: [phone] Creatinine 0.92 mg/dL Invalid Interpretation Code 0.70-1.30 [facility] Work Phone: [phone] eGFR (non-black) 109 mL/min/{1.73_m2} Invalid Interpretation Code >60 [facility] Work Phone: [phone] eGFR (non-black) 90 mL/min/{1.73_m2} Invalid Interpretation Code >60 [facility] Work Phone: [phone] EST GFR - AA 109 mL/min >60 [facility] Work Phone: [phone] Glucose 95 mg/dL Invalid Interpretation Code 70-110 [facility] Work Phone: [phone] Glucose [Mass/Vol] 95 mg/dL 70-110 [facility] Work Phone: [phone] Potassium 3.9 mmol/L Invalid Interpretation Code 3.5-5.1 [facility] Work Phone: [phone] Sodium 138 mmol/L Invalid Interpretation Code 136-145 [facility] Work Phone: [phone] Urea nitrogen 14 mg/dL Invalid Interpretation Code 7-18 [facility] Work Phone: [phone] Office Visiton 03-10-2016 Dietary management education, guidance, and counseling (procedure) yes Invalid Interpretation Code [facility] Work Phone: [phone] Documentation of current medications (procedure) Done Invalid Interpretation Code [facility] Work Phone: [phone] Tobacco smoking status NHIS Former smoker [facility] Work Phone: [phone] Tobacco use [facility] Former smoker Invalid Interpretation Code [facility] Work Phone: [phone] Lab Report: Lipid Profileon 02-28-2016 Cholesterol 171 mg/dL Invalid Interpretation Code 200 [facility] Work Phone: [phone] HDL Cholesterol 36 mg/dL Low [facility] Work Phone: [phone] LDL Cholesterol 99 mg/dL Invalid Interpretation Code 0-130 [facility] Work Phone: [phone] Triglyceride 182 mg/dL Invalid Interpretation Code [facility] Work Phone: [phone] very low density lipoproteins 36 mg/dL Invalid Interpretation Code 5-40 [facility] Work Phone: [phone] Lab Report: Liver Profileon 02-28-2016 Alanine aminotransferase (ALT) 23 U/L Invalid Interpretation Code 12-78 [facility] Work Phone: [phone] Albumin 3.7 g/dL Invalid Interpretation Code 3.4-5.0 [facility] Work Phone: [phone] Alkaline phosphatase (ALP) 64 U/L Invalid Interpretation Code 45-117 [facility] Work Phone: [phone] ALP (Bld) [Catalytic activity/Vol] 64 U/L 45-117 [facility] Work Phone: [phone] Aspartate aminotransferase (AST) 15 U/L Invalid Interpretation Code 15-37 [facility] Work Phone: [phone] Bilirubin (direct) 0.05 mg/dL Invalid Interpretation Code 0.00-0.30 [facility] Work Phone: [phone] Bilirubin (total) 0.30 mg/dL Invalid Interpretation Code 0.20-1.00 [facility] Work Phone: [phone] Globulin 3.7 g/dL High 2.3-3.5 [facility] Work Phone: [phone] Globulin (S) [Mass/Vol] 3.7 g/dL High 2.3-3.5 [facility] Work Phone: [phone] Protein 7.4 g/dL Invalid Interpretation Code 6.4-8.2 [facility] Work Phone: [phone] Office Visiton 02-11-2015 General cardiovascular disease 10Y risk [#] Carney.D'Agostino 6 % Invalid Interpretation Code [facility] Work Phone: [phone] [facility] Internal Medicine Work Phone: Smoking cessation education (procedure) yes Invalid Interpretation Code [facility] Work Phone: [phone] Office Visiton 03-27-2014 cardiac risk group B Invalid Interpretation Code [facility] Work Phone: [phone] Lab Report: PSADon 4 GE use only - for [employer] import when terms are not otherwise specified 6.48 ng/ml High 0.0-4.0 [facility] Work Phone: [phone] PSAD 6.48 ng/ml High 0.0-4.0 [facility] Work Phone: [phone] Replaced Document: [facility] E Observationson 02-13-2014 EKG QRS axis -25 deg Invalid Interpretation Code [facility] Work Phone: [phone] electrocardiogram interpretation 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 - T-abnormality -Possible lateral ischemia. 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 - T-abnormality -Possible lateral ischemia. ABNORMAL Invalid Interpretation Code [facility] Work Phone: [phone] P [place] 32 deg Invalid Interpretation Code [facility] Work Phone: [phone] P wave axis, electrocardiogram 32 deg Invalid Interpretation Code [facility] Work Phone: [phone] [place] Interval 158 ms Invalid Interpretation Code [facility] Work Phone: [phone] [place] interval, electrocardiogram 158 ms Invalid Interpretation Code [facility] Work Phone: [phone] Pulse (Heart Rate) 64 /min Invalid Interpretation Code [facility] Work Phone: [phone] QRS axis, electrocardiogram -25 deg Invalid Interpretation Code [facility] Work Phone: [phone] QRS Duration 86 ms Invalid Interpretation Code [facility] Work Phone: [phone] QRS duration, electrocardiogram 86 ms Invalid Interpretation Code [facility] Work Phone: [phone] QT Interval new path ms Invalid Interpretation Code [facility] Work Phone: [phone] QT interval, electrocardiogram new path ms Invalid Interpretation Code [facility] Work Phone: [phone] T [place] 134 deg Invalid Interpretation Code [facility] Work Phone: [phone] T wave axis, electrocardiogram 134 deg Invalid Interpretation Code [facility] Work Phone: [phone] Vital Signs Date Time Vital Sign Value Performing Clinician Facility 10-19-2024 08:54-0400 Body height 180.[address] Fatuma Jung MD Work Phone: [facility] 10-19-2024 08:54-0400 Body mass index (BMI) [Ratio] 33.9 kg/m2 Dr. Fatuma Jung MD Work Phone: [facility] 10-19-2024 08:54-0400 Body weight 110.[address] Fatuma Jung MD Work Phone: [facility] 10-19-2024 08:54-0400 Diastolic blood pressure 64 mm[Hg] Dr. Fatuma Jung MD Work Phone: [facility] 10-19-2024 08:54-0400 Heart rate 66 /min Dr. Fatuma Jung MD Work Phone: [facility] 10-19-2024 08:54-0400 Respiratory rate 18 /min Dr. Fatuma Jung MD Work Phone: [facility] 10-19-2024 08:54-0400 Systolic blood pressure 119 mm[Hg] Dr. Fatuma uJng MD Work Phone: [facility] 06-22-2022 08:18-0500 Body height 180.[address] Fatuma Jung Work Phone: [facility] 06-22-2022 08:17-0500 Body mass index (BMI) [Ratio] 34.8 kg/m2 Dr. Fatuma Jung Work Phone: [facility] 06-22-2022 08:17-0500 Body weight 113.[address] Fatuma Jung Work Phone: [facility] 06-22-2022 08:17-0500 Diastolic blood pressure 78 mm[Hg] Dr. Fatuma Jung Work Phone: [facility] 06-22-2022 08:17-0500 Heart rate 90 /min Dr. Fatuma Jung Work Phone: [facility] 06-22-2022 08:17-0500 Respiratory rate 18 /min Dr. Fatuma Jung Work Phone: [facility] 06-22-2022 08:17-0500 SaO2% (BldA) [Mass fraction] 99 % Dr. Fatuma Jung Work Phone: [facility] 06-22-2022 08:17-0500 Systolic blood pressure 136 mm[Hg] Dr. Fatuma Jung Work Phone: [facility] 12-03-2021 09:03-0400 Body height 180.[address] Fatuma Jung Work Phone: [facility] Work Phone: 12-03-2021 09:03-0400 Body mass index (BMI) [Ratio] 33.9 kg/m2 Dr. Fatuma Jung Work Phone: [facility] Work Phone: 12-03-2021 09:03-0400 Body temperature 97.2 [degF] Dr. Fatuma Jung Work Phone: [facility] Work Phone: 12-03-2021 09:03-0400 Body weight 110.[address] Fatuma Jung Work Phone: [facility] Work Phone: 12-03-2021 09:03-0400 Diastolic blood pressure 72 mm[Hg] Dr. Fatuma Jung Work Phone: [facility] Work Phone: 12-03-2021 09:03-0400 Heart rate 57 /min Dr. Fatuma Jung Work Phone: [facility] Work Phone: 12-03-2021 09:03-0400 Respiratory rate 16 /min Dr. Fatuma Jung Work Phone: [facility] Work Phone: 12-03-2021 09:03-0400 SaO2% (BldA) [Mass fraction] 99 % Dr. Fatuma Jung Work Phone: [facility] Work Phone: 12-03-2021 09:03-0400 Systolic blood pressure 130 mm[Hg] Dr. Fatuma Jung Work Phone: [facility] Work Phone: 07-11-2021 09:10-0400 Body height 180.[address] Fatuma Jung Work Phone: [facility] Work Phone: 07-11-2021 09:10-0400 Body mass index (BMI) [Ratio] 35.4 kg/m2 Dr. Fatuma Jung Work Phone: [facility] Work Phone: 07-11-2021 09:10-0400 Body weight 115.[address] Fatuma Jung Work Phone: [facility] Work Phone: 07-11-2021 09:10-0400 Diastolic blood pressure 75 mm[Hg] Dr. Fatuma Jung Work Phone: [facility] Work Phone: 07-11-2021 09:10-0400 Heart rate 65 /min Dr. Fatuma Jung Work Phone: [facility] Work Phone: 07-11-2021 09:10-0400 Respiratory rate 18 /min Dr. Fatuma Jung Work Phone: [facility] Work Phone: 07-11-2021 09:10-0400 SaO2% (BldA) [Mass fraction] 95 % Dr. Fatuma Jung Work Phone: [facility] Work Phone: 07-11-2021 09:10-0400 Systolic blood pressure 137 mm[Hg] Dr. Fatuma Jung Work Phone: [facility] Work Phone: 11-06-2016 14:07-0400 BMI (Body Mass Index) 36.84 kg/m2 Fatuma Jung MD [facility] 11-06-2016 14:0400 BP Diastolic 62 mm[Hg] Fatuma Jung MD [facility] 11-06-2016 14:0400 BP Systolic 156 mm[Hg] Fatuma Jung MD [facility] 11-06-2016 14:0400 Height 176.53 cm Fatuma Jung MD [facility] 11-06-2016 14:0400 Pulse (Heart Rate) 61 /min Fatuma Jung MD [facility] 11-06-2016 14:0400 Weight 114.82 kg Fatuma Jung MD [facility] 09-10-2016 14:27-0400 BMI (Body Mass Index) 35.59 kg/m2 Dara Allan [facility] Work Phone: 09-10-2016 14:27-0400 Body weight 116.58 kg Dara Godinezby [facility] Work Phone: 09-10-2016 14:27-0400 BP Diastolic 62 mm[Hg] Dara Allan [facility] Work Phone: 09-10-2016 14:27-0400 BP Systolic 138 mm[Hg] Dara Allan [facility] Work Phone: 09-10-2016 14:27-0400 Height 180.97 cm Dara Allan [facility] Work Phone: 09-10-2016 14:27-0400 Pulse (Heart Rate) 64 /min Dara Allan [facility] Work Phone: 09-10-2016 14:27-0400 Respiratory Rate 18 /min Dara Jerrell [facility] Work Phone: 09-10-2016 14:27-0400 Weight 116.58 kg Colleen Doan [facility] 03-10-2016 09:47-0500 BMI (Body Mass Index) 35.31 kg/m2 Patrick Carnes MD [facility] Work Phone: 03-10-2016 09:47-0500 BP Diastolic 68 mm[Hg] Patrick Carnes MD [facility] Work Phone: 03-10-2016 09:47-0500 BP Systolic 116 mm[Hg] Patrick Carnes MD [facility] Work Phone: 03-10-2016 09:47-0500 BSA (Body Surface Area) 2.35 m2 Patrick Carnes MD [facility] Work Phone: 03-10-2016 09:47-0500 Height 180.97 cm Patrick Carnes MD [facility] Work Phone: 03-10-2016 09:47-0500 Pulse (Heart Rate) 64 /min Patrick Carnes [facility] Work Phone: 03-10-2016 09:47-0500 Respiratory Rate 18 /min Patrick Carnes MD [facility] Work Phone: 03-10-2016 09:47-0500 Weight 115.67 kg Patrick Carnes MD [facility] Work Phone: 02-13-2014 11:30-0400 Heart rate 64 /min Dara Allan [facility] Work Phone: 03-18-2012 16:09-0500 Body Temperature 98.7 [degF] Patrick Carnes MD [facility] Work Phone: 03-18-2012 16:09-0500 Pulse Oximetry 98 % Patrick Carnes MD [facility] Work Phone: Encounters Encounter Date Encounter Type Care Provider Facility Start: 12-04-2024 ambulatory Fatuma Albarran ty:[facility] Start: 10-19-2024 End: 10-19-2024 Patient encounter procedure Nu PELAYO -[facility] Work Phone: Start: 10-19-2024 End: 10-19-[address] Fatuma Jung MD Work Phone: [facility] Start: 01-31-2024 Encounter for genera l adult medical examination without abnormal findings Fatuma Jung [facility] Start: 01-03-2024 End: [facility] Start: 01-03-2024 End: [facility] Start: 05-28-2023 End: 05-28-2023 ambulatory [facility] Work Phone: Start: 05-28-2023 End: 05-28-2023 Patient encounter procedure [facility] Work Phone: Start: 06-22-2022 End: 06-22-[address] Fatuma Jung Work Phone: [facility] Start: 06-19-2022 End: 06-19-[address] Fatuma Jung Work Phone: [facility] Work Phone: Start: 06-19-2022 End: 06-19-[address] Fatuma Jung Work Phone: [facility] Start: 05-06-2022 End: 05-06-2022 ambulatory [facility] Work Phone: Start: 05-06-2022 End: 05-06-2022 Patient encounter procedure [facility] Start: 12-03-2021 End: 12-03-[address] Fatuma Jung Work Phone: [facility] Work Phone: Start: 12-03-2021 End: 12-03-2021 Encounter for general adult medical examination without abnormal findings Dr. Fatuma Jung Work Phone: [facility] Internal Medicine Start: 12-03-2021 End: 12-03-[address] Fatuma Jung Work Phone: [facility] Internal Medicine Start: 07-14-2021 Non-patient / Non-visit Dr. Ramses Jung Work Phone: [facility] Start: 07-14-2021 End: 07-14-[address] Fatuma Jung Work Phone: [facility] Start: 07-11-2021 End: 07-11-[address] Fatuma Jung Work Phone: [facility] Start: 06-21-2021 End: 06-21-[address] Fatuma Jung Work Phone: [facility] Start: 04-22-2021 End: 04-22-[address] Fatuma Jung Work Phone: [facility] Start: 04-16-2021 End: 04-16-[address] Fatuma Jung Work Phone: [facility] Start: 01-13-[address] Pepito Jung Work Phone: [facility] Start: 05-31-[address] Pepito Jung Work Phone: [facility] Procedures Date Procedure Procedure Detail Performing Clinician Start: 12-17-2016 End: 12-17-2016 *BMP Praful Conklin LOAN SECRETARY-C Start: 12-17-2016 End: 12-17-2016 *PETTY Conklin LOAN SECRETARY-C Start: 11-20-2016 End: 11-23-2016 *PETTY Flores Work Phone: Start: 11-20-2016 End: 11-23-2016 [...] 11-06-2016 End: 11-23-2016 Thyroxine (T4) free Fatuma Flores Work Phone: Start: 09-10-2016 End: 09-10-2016 Documentation [...] 08-31-2016 *PETTY Carnes MD Work Phone: Start: 08-31-2016 End: [...] Start: 02-06-2016 End: 02-29-2016 *Hepatic Function Panel aPtrick Carnes MD Work Phone: Start: 02-06-2016 End: [...] Lipid 1996 panel - Serum or Plasma Patrikc Carnes MD Work Phone: Start: 01-29-2014 End: 02-23-2014 Stress Echocardiogram (treadmill) Patrick Carnes MD Work Phone: Start: 01-29-2014 [...] Author Start: 03-29-2017 End: 03-29-2017 Appointment Appointment [facility] Work Phone: Start: 02-28-2017 End: 03-03-2016 *Hepatic Function Panel *Hepatic Function Panel [facility] Work Phone: Start: 02-28-2017 End: 03-03-2016 Lipid panel [AGGREGATE] *Lipid Profile CC PCP [facility] Work Phone: Start: 02-28-2017 End: 03-03-2016 *Hepatic Function Panel *Hepatic Function Panel [facility] Work Phone: Start: 02-28-2017 End: 03-03-2016 Lipid panel [AGGREGATE] *Lipid Profile CC PCP [facility] Work Phone: Start: 02-12-2017 End: 02-12-2017 Appointment Appointment [facility] Start: 12-24-2016 End: 12-17-2016 *BMP *BMP [facility] Work Phone: Start: 12-24-2016 End: 12-17-2016 *BMP *BMP [facility] Work Phone: Start: 11-20-2016 End: 11-23-2016 *BMP *BMP [facility] Work Phone: Start: 11-20-2016 End: 11-23-2016 *CBC with Differential *CBC with Differential [facility] Work Phone: Start: 11-20-2016 End: 11-23-2016 *BMP *BMP [facility] Start: 11-20-2016 End: 11-23-2016 *CBC with Differential *CBC with Differential [facility] Start: 11-06-2016 End: 11-06-2016 Appointment Appointment [facility] Start: 11-06-2016 End: 11-06-2016 Follow Up Appt 3 months Follow Up Appt 3 months [facility] Work Phone: Start: 11-06-2016 End: 11-23-2016 Hemoglobin A1c/Hemoglobin.total mass fraction (Bld) *HgA1C [facility] Work Phone: Start: 11-06-2016 End: 11-23-2016 Lipid panel [AGGREGATE] *Lipid Profile [facility] Work Phone: Start: 11-06-2016 End: 11-23-2016 Thyroid stimulating hormone (TSH) *TSH [facility] Work Phone: Start: 11-06-2016 End: 11-23-2016 Thyroxine (T4) free *T4 free [facility] Work Phone: Start: 11-06-2016 End: 11-06-2016 Follow Up Appt 3 months Follow Up Appt 3 months [facility] Start: 11-06-2016 End: 11-23-2016 HbA1c *HgA1C [facility] Start: 11-06-2016 End: 11-23-2016 Lipid panel [AGGREGATE] *Lipid Profile [facility] Start: 11-06-2016 End: 11-23-2016 Thyroid stimulating hormone (TSH) *TSH [facility] Start: 11-06-2016 End: 11-23-2016 Thyroxine (T4) free *T4 free [facility] Start: 09-10-2016 End: 09-10-2016 Appointment Appointment [facility] Work Phone: Start: 09-10-2016 End: 09-10-2016 SKIP VALDIVIA [facility] Work Phone: Start: 09-10-2016 End: 09-10-2016 Follow Up Appt 6 months Follow Up Appt 6 months [facility] Work Phone: Start: 09-10-2016 End: 09-10-2016 SKIP VALDIVIA [facility] Work Phone: Start: 09-10-2016 End: 09-10-2016 Follow Up Appt 6 months Follow Up Appt 6 months [facility] Work Phone: Start: 08-31-2016 End: 08-31-2016 *BMP *BMP [facility] Work Phone: Start: 08-31-2016 End: 08-31-2016 *BMP *BMP [facility] Work Phone: Start: 03-10-2016 End: 09-01-2016 SKIP VALDIVIA [facility] Work Phone: Start: 03-10-2016 End: 09-01-2016 Follow Up Appt 6 months Follow Up Appt 6 months [facility] Work Phone: Start: 03-10-2016 End: 03-10-2016 Stress Echocardiogram (treadmill) Stress Echocardiogram (treadmill) [facility] Work Phone: Start: 03-10-2016 End: 09-01-2016 SKIP VALDIVIA [facility] Work Phone: Start: 03-10-2016 End: 09-01-2016 Follow Up Appt 6 months Follow Up Appt 6 months [facility] Work Phone: Start: 03-10-2016 End: 03-10-2016 Stress Echocardiogram (treadmill) Stress Echocardiogram (treadmill) [facility] Work Phone: Start: 02-06-2016 End: 02-29-2016 *Hepatic Function Panel *Hepatic Function Panel [facility] Work Phone: Start: 02-06-2016 End: 02-29-2016 Lipid panel [AGGREGATE] *Lipid Profile CC PCP [facility] Work Phone: Start: 02-06-2016 End: 02-29-2016 *Hepatic Function Panel *Hepatic Function Panel [facility] Work Phone: Start: 02-06-2016 End: 02-29-2016 Lipid panel [AGGREGATE] *Lipid Profile CC PCP [facility] Work Phone: Start: 07-25-2015 End: 02-11-2015 *Hepatic Function Panel *Hepatic Function Panel [facility] Work Phone: Start: 07-25-2015 End: 02-11-2015 Lipid panel [AGGREGATE] *Lipid Profile CC PCP [facility] Work Phone: Start: 07-25-2015 End: 02-11-2015 *Hepatic Function Panel *Hepatic Function Panel [facility] Work Phone: Start: 07-25-2015 End: 02-11-2015 Lipid panel [AGGREGATE] *Lipid Profile CC PCP [facility] Work Phone: Start: 02-11-2015 End: 02-11-2015 SKIP VALDIVIA [facility] Work Phone: Start: 02-11-2015 End: 02-11-2015 Follow Up Appt 1 year Follow Up Appt 1 year [facility] Work Phone: Start: 02-11-2015 End: 02-11-2015 SKIP VALDIVIA [facility] Work Phone: Start: 02-11-2015 End: 02-11-2015 Follow Up Appt 1 year Follow Up Appt 1 year [facility] Work Phone: Start: 01-30-2015 End: 07-24-2014 *Hepatic Function Panel *Hepatic Function Panel [facility] Work Phone: Start: 01-30-2015 End: 07-24-2014 Lipid panel [AGGREGATE] *Lipid Profile CC PCP [facility] Work Phone: Start: 01-30-2015 End: 07-24-2014 *Hepatic Function Panel *Hepatic Function Panel [facility] Work Phone: Start: 01-30-2015 End: 07-24-2014 Lipid panel [AGGREGATE] *Lipid Profile CC PCP [facility] Work Phone: Start: 09-17-2014 End: 02-11-2015 *Hepatic Function Panel *Hepatic Function Panel [facility] Work Phone: Start: 09-17-2014 End: 02-11-2015 *Hepatic Function Panel *Hepatic Function Panel [facility] Work Phone: Start: 07-18-2014 End: 07-23-2014 Lipid panel [AGGREGATE] *Lipid Profile CC PCP [facility] Work Phone: Start: 07-18-2014 End: 07-23-2014 Lipid panel [AGGREGATE] *Lipid Profile CC PCP [facility] Work Phone: Start: 03-27-2014 End: 01-31-2015 DJN SARAN [facility] Work Phone: Start: 03-27-2014 End: 01-31-2015 Follow Up Appt 1 year Follow Up Appt 1 year [facility] Work Phone: Start: 03-27-2014 End: 01-31-2015 DJN SARAN [facility] Work Phone: Start: 03-27-2014 End: 01-31-2015 Follow Up Appt 1 year Follow Up Appt 1 year [facility] Work Phone: Start: 03-01-2014 End: 03-01-2014 Echocardiography Echocardiogram (limited) [facility] Work Phone: Start: 03-01-2014 End: 03-01-2014 Echocardiography Echocardiogram (limited) [facility] Work Phone: Start: 02-13-2014 End: 02-13-2014 SKIP VALDIVIA [facility] Work Phone: Start: 02-13-2014 End: 02-13-2014 Echocardiography Echocardiogram (complete) [facility] Work Phone: Start: 02-13-2014 End: 02-13-2014 Follow Up Appt 1 year Follow Up Appt 1 year [facility] Work Phone: Start: 02-13-2014 End: 02-13-2014 SKIP VALDIVIA [facility] Work Phone: Start: 02-13-2014 End: 02-13-2014 Echocardiography Echocardiogram (complete) [facility] Work Phone: Start: 02-13-2014 End: 02-13-2014 Follow Up Appt 1 year Follow Up Appt 1 year [facility] Work Phone: Start: 01-29-2014 End: 01-30-2014 *Hepatic Function Panel *Hepatic Function Panel [facility] Work Phone: Start: 01-29-2014 End: 01-29-2014 SKIP VALDIVIA [facility] Work Phone: Start: 01-29-2014 End: 01-29-2014 Follow Up Appt 1 year Follow Up Appt 1 year [facility] Work Phone: Start: 01-29-2014 End: 01-30-2014 Lipid panel [AGGREGATE] *Lipid Profile CC PCP [facility] Work Phone: Start: 01-29-2014 End: 01-29-2014 Stress Echocardiogram (treadmill) Stress Echocardiogram (treadmill) [facility] Work Phone: Start: 01-29-2014 End: 01-30-2014 *Hepatic Function Panel *Hepatic Function Panel [facility] Work Phone: Start: 01-29-2014 End: 01-29-2014 DJN SARAN [facility] Work Phone: Start: 01-29-2014 End: 01-29-2014 Follow Up Appt 1 year Follow Up Appt 1 year [facility] Work Phone: Start: 01-29-2014 End: 01-30-2014 Lipid panel [AGGREGATE] *Lipid Profile CC PCP [facility] Work Phone: Start: 01-29-2014 End: 01-29-2014 Stress Echocardiogram (treadmill) Stress Echocardiogram (treadmill) [facility] Work Phone: Blood chemistry [facility] Patient Education HYPERLIPIDEMIA , HYPERTENSION,%20AMBULATO RY%20CARE, DYSPNEA, CHOLESTEROL%20AND%20YOUR %20HEALTH [facility] Work Phone: Immunizations Immunization Date Immunization Notes Care Provider Fa [facility] 03-11-2021 Covid (Pfizer) Dr. Fatuma Jung Work Phone: [facility] 06-14-2019 Flucelvax Quad [phone] (PF) (flu vac qs 2019(4 yr up)CD(PF)) 60 mcg ([address] Fatuma Jung Work Phone: [facility] Work Phone: Payers Date Payer Category Payer Self-pay [id number] 2016 Unknown [id number] Unknown [id number] Unknown [id number] Unknown [id number] Unknown [id number] Social History Date Type Detail Facility Start: 07-11-2021 End: 06-22-2022 Tobacco smoking status [facility] Unknown if ever smoked [facility] Start: 02-07-2014 None [facility] Start: 02-07-2014 Spouse/ Signif icant Other [facility] Start: 1960 Sex Assigned At Male W [facility] Start: 01-03-2024 Tobacco smoking status NHIS Ex-smoker (finding) [facility] Evaluation note Note Date & Type Note Facility Evaluation note Diagnosis Onset Date Claudication acute Essential hypertension acute 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 Hyperlipidemia chronic [facility] Work Phone: Evaluation note Note Date & Type Note Facility Evaluation note Diagnosis Onset Date Preventative health care acu te [facility] Work Phone: Evaluation note Note Date & Type Note Facility Evaluation note No assessment information availa ble [facility] Work Phone: Evaluation note Note Date & Type Note Facility Evaluation note Diagnosis Onset Date 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 Essential hypertension chron ic Hyperlipidemia chronic Claudication resolved [facility] Work Phone: Evaluation note Note Date & Type Note Facility Evaluation note Diagnosis Onset Date Resolution Atherosclerotic heart disease of [place] coronary artery without angina pectoris chronic October 19, 2024 8:51am Essential hypertension chronic Ju 2024 8:51am Hyperlipidemia chronic October 19, 2024 8:51am [facility] Work Phone: Reason for referral (narrative) Note Date & Type Note Facility Reason for referral (narrative) No reason for referral information available [employer] Work Phone: Summary Purpose Family History No Family History Records Found Relationship Condition Age at Onset Recorded Date/T puja grandfather Malignant neoplasm of prostate Unknown father Malignant neoplasm of prostate Unknown brother Malignant neoplasm of prostate Unknown uncle Malignant neoplasm of prostate Unknown Advance Directives No Advanced Directives Records Found Advance Directive Response Recorded Date/ Time Advance Directives No May 9:21am Living Will No April 16, 021 9:33am Power of Public Health Sanitarian No June 13, 2018 9:21am Advance Directive Response Recorded Date/ Time Advance Directives No May 8:21am Living Will No April 16, 021 8:33am Power of Public Health Sanitarian No June 13, 2018 8:21am Advance Directive Response Recorded Date/ Time Advance Directives No May 9:21am Chief Complaint and Reason for Visit Chief Complaint COVID DRIVE THRU JONI T EORDER 6 M FU CLAUDICATION Reason for Visit Claudication Essential hypertension Atherosclerotic heart disease of [place] coronary artery without angina pectoris Hyperlipidemia Chief Complaint WELLNESS VISIT Reason for Visit Preventative health care Chief Complaint INT LABS 1 Y FU Reason for Visit Atherosclerotic hear t disease of [place] coronary artery without angina pectoris Essential hypertension Hyperlipidemia Claudication Chief Complaint 2 ORDER DRS/E ORDER & PAPER Chief Complaint Admit Date 1 Y FU October 19, 2024 8:51a m Reason for Visit Admit Date Atherosclerotic heart diseas [place] coronary artery without angina pectoris October 19, 2024 8:51am Essential hypertension October 19, 2024 8: 51am Hyperlipidemia October 19, 2024 8:51a m Additional Source Comments (unrecognized sect ion and content) No Status Records FoundNo Status Records Found INFORMATION SOURCE (unrecogn ized section and content) DATE CREATED AUTHOR 10/04/2018 [facility] DATE CREATED AUTHOR AUTHOR'S ORGANIZ ATION 12/04/2024 [facility] Goals (unrecognized section and content) Goals may be documented in a n alternate sectionGoals may be documented in an alternate sectionGoals may be documented in an alternate sectionGoals may be documented in an alternate sectionGoals may be documented in an alternate sectionGoals may be documented in an alternate section Care Teams (unrecognized sec tion and content) Team Status: Active Member Role Status Dates Dr. Fatuma Jung MD Family Provider Active Dr. Fatuma Jung MD Primary Care Provider Active Team Status: Inactive Member Role Status Dates Dr. Fatuma Jung MD Primary Care Provider Active Dr. Willy Olivas MD Attending Provider, Referr ing Provider Active Team Status: Inactive Member Role Status Dates Dr. Fatuma Jung MD Primary Care Provider, Refer ring Provider Active Brian Michelle DREDGE ENGINEER, DREDGE ENGINEER-C Attending Provider Active Team Status: Inactive Member Role Status Dates Dr. Fatuma Jung MD Primary Care Provider Active Brian Michelle DREDGE ENGINEER, DREDGE ENGINEER-C Attending Provider, Referring Pro vider Active Team Status: Inactive Member Role Status Dates Dr. Fatuma Jung MD Primary Care Provider Active Dr. Willy Olivas MD Attending Provider, Referr ing Provider Active Brian Michelle DREDGE ENGINEER, DREDGE ENGINEER-C Other Provider Active Team Status: Active Member Role/Relationship Status Dates Dr. Fatuma Jung MD Family Provider Active Dr. Fatuma Jung MD Primary Care Provider Active Team Status: Inactive Member Role/Relationship Status Dates Dr. Fatuma Jung MD Primary Care Provider Active Start: October 19, 2024 End: October 19, 2024 Dr. Fatuma Jung MD Referring Provider Active Start: October 19, 2024 End: October 19, 2024 Nu Ye DREDGE ENGINEER, DREDGE ENGINEER-C Attending Provider Active Start: October 19, 2024 End: October 19, 2024 FOR RECORDS PERTAINING TO PATIENTS WHO ARE [...] BE BASED ON THE PRIMARY CLINICAL RECORDS. [facility] [employer] provides no warranty or guarantee of the accuracy or completeness of information in this document.
[2024-12-08 08:19] LABS: PSA,Total- Diagnostic 10.00 ng/mL (0.00-4.00)
== END | disposition home or self-care (01) ==
LOC: LAB.FUTURE 06:26 → LAB 06:27
PROVIDERS: PCP Internal Medicine; Referring Provider Nurse Practitioner; Visit Provider Nurse Practitioner
DX: E78.00 Pure hypercholesterolemia, unspecified (principal); R97.20 Elevated prostate specific antigen [PSA]
CPT/HCPCS: 36415; 84153

== ENCOUNTER → 2025-01-03 | Outpatient (CLI) | payer BC, SELFPAY ==
[2025-01-03 13:47] LABS: Hematocrit 39.2 % (40-54); Hemoglobin 12.9 g/dL (13.0-16.5); Immature Granulocytes Count 0.060 X10^3/uL (0.0-0.0); Mean Corp Hgb Conc 32.9 g/dL (32-36); Mean Corpuscular Volume 83.2 fL (80-94); Mean Platelet Vol. 9.3 fl (6.2-12.0); NRBC Flagged by Analyzer 0 % (0-5); Platelet Count 320 K/mm3 (150-450); RBC Distribution Width CV 13.9 % (11.6-14.6); RBC Distribution Width SD 42.8 fl (35.1-43.9); Red Blood Count 4.71 M/mm3 (4.6-6.2); White Blood Count 9.7 K/mm3 (4.4-11.0)
[2025-01-03 14:33] LABS: AST(SGOT) 24 U/L (<=37); Alanine Aminotransfer ALT/SGPT 16 U/L (<=46); Albumin, Serum 4.3 g/dL (3.4-4.8); Alkaline Phosphatase 72 U/L (40-129); Anion Gap 12 (5-15); BUN 12 mg/dL (4-19); BUN/Creat Ratio 12.5 RATIO (10-20); Calcium,Total 9.6 mg/dL (7.6-11.0); Carbon Dioxide 23.0 mmol/L (21.0-32.0); Chloride 104 mmol/L (98-108); Globulin 3.2 g/dL (2.2-4.2); Glucose 93 mg/dL (70-99); Magnesium 2.1 mg/dL (1.5-2.2); Potassium 3.8 mmol/L (3.3-5.1)
== END | disposition home or self-care (01) ==
LOC: LAB 12:54
PROVIDERS: PCP Internal Medicine; Referring Provider Nurse Practitioner Family; Visit Provider Nurse Practitioner Family
DX: R42 Dizziness and giddiness (principal); I25.10 Atherosclerotic heart disease of native coronary artery without angina pectoris; I10 Essential (primary) hypertension; E78.5 Hyperlipidemia, unspecified
CPT/HCPCS: 36415; 80053; 83735; 84439; 84443; 85025

== ENCOUNTER → 2025-02-02 | Outpatient (CLI) | payer BC, SELFPAY ==
--- NOTE | 2025-02-02 08:04 | ECHOD_ITS ---
Reason For Study Reason For Study: DIZZINESS Procedure This was a 2D Doppler, Color Flow transthoracic echocardiogram. Exam performed in department. Left Ventricle Normal LV size. Moderate concentric left ventricular hypertrophy. Left ventricular systolic function is normal. The left ventricular ejection fraction is 60 %. No regional wall motion abnormalities noted. Right Ventricle Normal RV size. Normal systolic function. Atria Normal left atrium. Normal right atrium. Mitral Valve Normal mitral valve. Mild (1+) eccentric mitral valve insufficiency. Tricuspid Valve Normal tricuspid valve. Mild (1+) tricuspid valve insufficiency. Aortic Valve Normal aortic valve. Trisinus/trileaflet aortic valve. Pulmonic Valve Normal pulmonic valve. Great Vessels Normal aortic root. The pulmonary artery is normal size. Inferior vena cava collapse with respiration. Pericardium/Pleural No pericardial effusion. MMode/2D Measurements & Calculations LVIDd: 4.8 cm IVSd: 1.3 cm Ao root diam: 3.4 cm LVIDs: 2.7 cm LVPWd: 1.4 cm RVDd: 4.1 cm FS: 44.8 % LAV(MOD-bp): 68.1 ml LVAd ap4: 31.5 cm2 SV(MOD-sp4): 57.3 ml LAV(MOD-bp) Indexed: 30.2 ml/m2 LVLd ap4: 8.8 cm SI(MOD-sp4): 25.4 ml/m2 LAV(MOD-sp2): 76.1 ml EDV(MOD-sp4): 93.7 ml LAV(MOD-sp4): 60.0 ml EDV(sp4-el): 95.5 ml LVAs ap4: 16.7 cm2 LVLs ap4: 6.7 cm ESV(MOD-sp4): 36.4 ml ESV(sp4-el): 35.4 ml EF(MOD-sp4): 61.1 % EF(sp4-el): 63.0 % SV(sp4-el): 60.1 ml LA A4 area: 19.7 cm2 LA dimension(2D): 4.2 cm RA A4 area: 12.8 cm2 Time Measurements MV dec time: 0.25 sec Doppler Measurements & Calculations MV E max ben: 69.7 cm/sec Lat Peak E' Ben: 12.8 cm/sec Med Peak E' Ben: 11.7 cm/sec MV A max ben: 59.2 cm/sec E/E' lat: 5.4 E/E' med: 5.9 MV E/A: 1.2 MV V2 max: 77.8 cm/sec Ao V2 max: 121.6 cm/sec MV max P.4 mmHg MV dec slope: 281.0 cm/sec2 Ao max P.9 mmHg MV V2 mean: 44.7 cm/sec Ao V2 mean: 82.5 cm/sec MV mean P.93 mmHg Ao mean P.1 mmHg MV V2 VTI: 34.8 cm Ao V2 VTI: 29.4 cm AV (velocity ratio): 0.80 LV V1 max: 110.9 cm/sec PA V2 max: 106.3 cm/sec LV V1 max P.0 mmHg PA V2 mean: 74.8 cm/sec LV V1 mean P.6 mmHg LV V1 mean: 74.2 cm/sec LV V1 VTI: 23.3 cm ECHO/Echo Complete Interpretation Summary Normal LV size. Left ventricular systolic function is normal. The left ventricular ejection fraction is 60 %. Moderate concentric left ventricular hypertrophy. Ordering Physician: Brian Michelle Referring Physician: Brian Michelle Performed By: Fallon Torrez RCS
--- OUTSIDE RECORDS SUMMARY | 2025-02-02 08:22 | XMS RPT_ITS | CCD ---
Author Organization [facility] Care Team Providers Care Transfer Engineer Name Role Phone Katerin SHEPARD, Praful Matson [...] Dr. Gordo Persaud Attending Provider Ephraim CHOWDHURY, PAPER STEAMER-C Nu Attending Provider Dr. Charles Camara Attending [...] Dr. Fatuma Jung MD Referring Provider [phone] Nu Perry Attending Provider [place], Lyla Attending Provider [place], Lyla Referring Provider Erich MCGRAW, Dr. Burris Primary Care Physician Nu Perry Attending Physician [place], Lyla Attending Physician Roof PAPER STEAMER-Evert, Brian Arreaga Attending Physician Roof PAPER STEAMERNasrin, Brian Arreaga Referring Provider Oleghe, Efewongbe Primary Care Unavailable Roof, Brian Arreaga Attending Unavailable Roof, Brian Arreaga Referring Unavailable Roof, Brian Arreaga Attending Unavailable Roof, Brian Arreaga Referring Unavailable Roof, Brian Arreaga Primary Care Unavailable Oleghe, Efewongbe Primary Care Unavailable Oleghe, Efewongbe Referring Unavailable Nu Ye NP Attending Unavailable Oleghe, Efewelias Primary Care Unavailable Oleghe, Efewongbe Referring Unavailable Roof, Brian Arreaga Attending Unavailable Oleghe, Efewongbe Primary Care Unavailable [place], Lyla Attending Unavailable [place], Lyla Referring Unavailable Oleghe, Efewongbe Primary Care Unavailable Roof, Brian Arreaga Attending Unavailable Roof, Brian Arreaga Referring Unavailable Allergies Allergy Classification Reported Allergen(s) Allergy Type Date of Onset Reaction(s) Facility (12 sources) natural latex rubber; Translations: [LATEX] allergy to substance 06-17-2011 [facility] Work Phone: (10 sources) natural latex rubber; Translations: [Latex, Natural Rubber] Allergy to substance 07-11-2021 [facility] Medications Current Medications Medication Drug Class(es) Dates Sig (Normalized) Sig (Original) aspirin 81 mg delayed release oral tablet (9 sources) Platelet Aggregation Inhibitor, Nonsteroidal Anti-inflammatory Drug Start: 05-31-2018 take 1 tablet by mouth once daily dutasteride 0.5 mg oral capsule (4 sources) 5-alpha Reductase Inhibitor Start: 07-26-2023 take 1 capsule by mouth at bedtime Multivitamin,Tx-Iro n-Minerals (Complete Multivitamin) tablet (4 sources) Start: 03-25-2017 Start: 03-25-2017 Multivitamin,T j-Xohe-Npyqpych (Complete Multivitamin) tablet Active 1 {tbl} PO As Directed March 25, 2017 1:00am Complies with drug therapy Start: 03-25-2017 Multivitamin,T b-Ttct-Xefwgtbe (Complete Multivitamin) tablet Active 1 {tbl} PO As Directed March 25, 2017 1:00am multivitamin,ki-efwu-dmnaokl s tablet (5 sources) Start: 03-25-2017 multivitamin,bj-pqce-jxekuex s tablet Active 1 TABLET PO As Directed March 25, 2017 12:54pm Start: 03-25-2017 multivitamin,t f-xvtb-dhfccsxr tablet Active 1 TABLET PO As Directed March 25, 2017 12:00am Start: 03-25-2017 multivitamin,t y-mslp-kmsvouax tablet Active 1 TABLET PO As Directed March 25, 2017 1:00am tadalafil 5 mg oral tablet (20 sources) Phosphodiesterase 5 Inhibitor Start: 03-10-2016 take 1 tablet by mouth once daily Start: 01-16-2014 End: 01-29-2014 take 1 tablet by mouth once daily CIALIS 20 MG TABS One tablet by mouth daily TADALAFIL [id number] Patrick Carnes MD tamsulosin hydrochloride 0.4 mg oral capsule (20 sources) alpha-Adrenergic Minda Start: 03-10-2016 take 1 capsule by mouth once daily Completed/Discontinued Medications Medication Drug Class(es) Dates Sig (Normalized) Sig (Original) 24 hr alfuzosin hydrochloride 10 mg extended release oral tablet (20 sources) alpha-Adrenergic Minda Start: 03-05-2014 End: 02-11-2015 take 1 tablet by mouth once daily in the evening ALFUZOSIN HCL ER 10 MG [id number] One tablet by mouth daily every evening ALFUZOSIN HCL [id number] Patrick Carnes MD Start: 03-05-2014 End: 03-27-2014 take 1 tablet by mouth once daily UROXATRAL 10 MG [id number] One tablet by mouth daily ALFUZOSIN HCL [id number] Patrick Carnes MD Start: 03-05-2014 take 1 tablet by [facility] once daily UROXATRAL 10 MG [id number] One tablet by mouth daily ALFUZOSIN HCL [id number] Anuja Shon MAURO Dean amLODIPine 10 mg / valsartan 320 mg oral tablet (20 sources) Dihydropyridine Calcium Channel Minda, Angiotensin 2 Receptor Minda Start: 06-22-2022 End: 05-24-2024 Amlodipine-Valsartan 10-320 mg tablet Discontinued 1 {tbl} PO DAILY 90 June 14, 2023 8:54am May 24, 2024 9:12am Start: 06-22-2022 take 1 tablet by cruzito th once daily Amlodipine-Valsartan Active 1 TABLET PO DAILY June 22, 2022 12:00am Start: 03-27-2014 take 1 tablet by cruzito th once daily EXFORGE 10-160 MG TABS One tablet by mouth daily AMLODIPINE BESYLATE-VALSARTAN [id number] Patrick Carnes MD Start: 02-06-2014 End: 06-22-2022 [...] G TABS 1 tab daily AMLODIPINE BESYLATE-VALSARTAN [id number] Devon Briones MD End: 02-13-2014 EXFORGE 10-160 MG TABS 1 tab daily AMLODIPINE BESYLATE-VALSARTAN [id number] Patrick Carnes MD atorvastatin 20 mg oral tablet (9 sources) HMG-CoA Reductase Inhibitor Start: 06-13-2018 End: 06-14-2019 take 1 tablet by mouth at bedtime Atorvastatin 20 mg tablet Discontinued 20 mg PO AT BEDTIME 30 June 13, 2018 1:00am June 14, 2019 3:07pm cephalexin (20 sources) Cephalosporin Antibacterial Start: 06-12-2011 End: 08-25-2011 KEFLEX KEANSHU Briones MD Start: 06-12-2011 CATHLEEN CATHLEEN Briones MD Start: 06-12-2011 End: 08-25-2011 CATHLEEN CATHLEEN Briones MD Start: 06-12-2011 CATHLEEN CATHLEEN Briones MD cholecalciferol 0.05 mg oral tablet (9 sources) Vitamin D Start: 05-23-2018 End: 06-14-2019 [...] by mouth three times daily CLINDAMYCIN HCL [id number] Devon Briones MD clopidogrel 75 mg oral tablet (9 sources) P2Y12 Platelet Inhibitor Start: 05-31-2018 End: 06-13-2018 take 1 tablet by mouth once daily Clopidogrel (Plavix) 75 mg tablet Discontinued 75 mg PO DAILY 30 3 May 31, 2018 1:00am June 13, 2018 12:20pm colchicine 0.6 mg oral tablet (20 sources) Start: 02-13-2014 End: 03-27-2014 take 1 tablet by mouth twice daily COLCHICINE 0.6 MG TABS One tablet by mouth twice daily (02/14/14 is last day) COLCHICINE [id number] Patrick Carnes MD diazePAM 5 mg oral tablet (20 sources) Benzodiazepine Start: 07-05-2011 End: 08-25-2011 take 1 tablet by mouth four times daily as needed for muscle spasms VALIUM 5 MG TABS One tablet by mouth four times daily as needed for spasm DIAZEPAM [id number] Devon Briones MD 24 hr doxazosin 4 [...] 1 tablet t wice daily DOXAZOSIN MESYLATE [id number] Patrick Carnes MD Start: 01-16-2014 End: 01-29-2014 take 1 tablet by mouth once daily CARDURA 4 MG TABS One tablet by mouth daily DOXAZOSIN MESYLATE [id number] Consuelo Nice RN finasteride 5 mg oral tablet (20 sources) 5-alpha Reductase Inhibitor Start: 01-16-2014 End: 01-29-2014 take 1 tablet by mouth once daily PROSCAR 5 MG TABS One tablet by mouth daily FINASTERIDE [id number] Consuelo Nice RN Flucelvax Quad [id number] (PF) (flu vac qs 2020(2 yr up)CD(PF)) 60 mcg (15 mcg x (1 source) Start: 01-13-2021 End: 01-13-2021 inject 15 ug by intramuscular injection once Flucelvax Quad (PF) (flu vac qs 2020(2 yr up)CD(PF)) 60 mcg (15 mcg x Discontinued 0.5 ML IM ONCE 0.5 January 13, 2021 8:06am January 13, 2021 11:56am hydroCHLOROthiazide 25 mg oral tablet (20 sources) Thiazide Diuretic Start: 03-27-2014 End: 08-23-2024 take 1 tablet by mouth once daily Hydrochlorothiazide 25 mg tablet Discontinued 25 mg PO daily 90 3 August 30, 2023 1:41pm August 23, 2024 7:58am Start: 03-27-2014 take 1 tablet by cruzito th once daily HYDROCHLOROTHIAZIDE 12.5 MG TABS One tablet by mouth daily HYDROCHLOROTHIAZIDE [id number] Patrick Carnes MD Start: 02-06-2014 End: 03-25-2017 take 1 capsule by mouth once daily Hydrochlorothiazide 12.5 MG capsule Discontinued 12.5 mg PO DAILY February 06, 2014 12:00am March 25, 2017 12:57pm Start: 01-16-2014 End: 02-13-2014 take 1 tablet by mouth once daily HYDROCHLOROTHIAZIDE 12.5 MG TABS One tablet by mouth daily HYDROCHLOROTHIAZIDE [id number] Patrick Carnes MD HYDROmorphone hydrochloride 2 mg oral tablet (20 sources) Opioid Agonist Start: 07-05-2011 End: 08-25-2011 take 1-2 tablets by mouth four times daily as needed for pain DILAUDID 2 MG TABS one to two tablets by mouth four times daily as needed for pain HYDROMORPHONE HCL [id number] Devon Briones MD ibuprofen 200 mg oral tablet (20 sources) Nonsteroidal Anti-inflammatory Drug Start: 03-27-2014 End: 02-11-2015 take 3 tablets by mouth once daily IBUPROFEN 200 MG TABS Three tablets by mouth daily IBUPROFEN [id number] Patrick Carnes MD MULTIPLE VITAMINS-MINERALS (6 sources) Start: 11-06-2016 COMPLETE MULTIVITAMIN/MINERA L LIQD take as directed MULTIPLE VITAMINS-MINERALS [id number] Fatuma Jung MD MULTIPLE VITAMINS-MINERALS (3 sources) Start: 11-06-2016 COMPLETE MULTIVITAMIN/MINERA L LIQD take as directed MULTIPLE VITAMINS-MINERALS [id number] Fatuma Jung MD Start: 11-06-2016 COMPLETE MULTI VITAMIN/MINERAL LIQD take as directed MULTIPLE VITAMINS-MINERALS [id number] Jung MD OMEGA-3 FATTY ACIDS CPDR (16 sources) Start: 03-27-2014 End: 03-10-2016 OMEGA 3 CPDR 1400mg daily 20 01/04/09 OMEGA-3 FATTY ACIDS CPDR [id number] Dara lAlan Start: 03-27-2014 OMEGA 3 CPDR 1 400mg daily OMEGA-3 FATTY ACIDS CPDR [id number] Patrick Carnes MD OMEGA-3 FATTY ACIDS CPDR (8 sources) Start: 03-27-2014 OMEGA 3 CPDR 1 400mg daily OMEGA-3 FATTY ACIDS CPDR [id number] Patrick Carnes MD Start: 03-27-2014 End: 03-10-2016 OMEGA 3 CPDR 1400mg daily 20 01/04/09 OMEGA-3 FATTY ACIDS CPDR [id number] Dara Allan Start: 03-27-2014 End: 03-10-2016 OMEGA 3 CPDR 1400mg daily 20 01/04/09 OMEGA-3 FATTY ACIDS CPDR [id number] Dara Allan Start: 03-27-2014 OMEGA 3 CPDR 1 400mg daily OMEGA-3 FATTY ACIDS CPDR [id number] Patrick Carnes MD Gfuxz-1t-Jxn-Epa-Fish Oil-D3 (5 sources) Start: 02-06-2014 End: 03-26-2017 Svkcu-6a-Ibc-Epa-Fish Oil-D3 Discontinued 1 EACH PO DAILY February 06, 2014 3:44pm March 26, 2017 10:40pm Start: 02-06-2014 End: 03-26-2017 Frqdy-2l-Gwf-Epa-Fish Oil-D3 Discontinued 1 EACH PO DAILY February 05, 2014 11:00pm March 26, 2017 9:40pm Start: 02-06-2014 End: 03-26-2017 Rfldj-5g-Wqj-Epa-Fish Oil-D3 Discontinued 1 EACH PO DAILY February 06, 2014 12:00am March 26, 2017 10:40pm Mhgir-1x-Jqp-Epa-Fish Oil-D3 1 EACH capsule (4 sources) Start: 02-06-2014 End: 03-26-2017 take 1 capsule by mouth once daily Flrab-7l-Jkd-Epa-Fish Oil-D3 1 EACH capsule Discontinued 1 NMA PO DAILY February 06, 2014 12:00am March 26, 2017 10:40pm potassium chloride 10 meq extended release oral tablet (20 sources) Start: 11-23-2016 End: 10-19-2024 take 1 tablet by mouth once daily Potassium Chloride 10 mEq tablet extended release Discontinued 10 meq PO daily October 14, 2023 8:58am October 19, 2024 9:05am Start: 11-23-2016 take 1 tablet by cruzito every twenty-four hours K-TAB 10 MEQ CR-TABS One tablet by mouth daily POTASSIUM CHLORIDE [id number] Praful Conklin MANAGER CIVIL-C Saw-Vit E-Sod Suw-Xbb-Upib-P yg (5 sources) Start: 02-06-2014 End: 03-26-2017 Saw-Vit E-Sod Xjz-Hut-Qtbo-P yg Discontinued 1 EACH PO DAILY February 06, 2014 3:44pm March 26, 2017 10:39pm Start: 02-06-2014 End: 03-26-2017 Saw-Vit E-Sod Myq-Wio-Qsry-P yg Discontinued 1 EACH PO DAILY February 05, 2014 11:00pm March 26, 2017 9:39pm Start: 02-06-2014 End: 03-26-2017 Saw-Vit E-Sod Ftl-Ylt-Cqao-P yg Discontinued 1 EACH PO DAILY February 06, 2014 12:00am March 26, 2017 10:39pm Saw-Vit E-Sod Ypu-Gho-Gwir-Pyg 1 EACH tablet (4 sources) Start: 02-06-2014 End: 03-26-2017 take 1 tablet by mouth once daily Saw-Vit E-Sod Ajl-Ivd-Mvkp-Pyg 1 EACH tablet Discontinued 1 NMA PO DAILY February 06, 2014 12:00am March 26, 2017 10:39pm sulfamethoxazole / trimethoprim (20 sources) Dihydrofolate Reductase Inhibitor Antibacterial, Sulfonamide Antimicrobial Start: 06-12-2011 End: 08-25-2011 BACTRIM MARTIN Briones MD Start: 06-12-2011 BACTRIM 06/12 MARTIN Briones MD Start: 06-12-2011 End: 08-25-2011 BACTRIM MARTIN Briones MD Start: 06-12-2011 BACTRIM 06/12 MARTIN Briones MD vitamin b12 0.1 mg oral tablet (18 sources) Vitamin B12 Start: 03-25-2017 End: 03-29-2017 Cyanocobalamin (Vitamin B-12 ) (Vitamin B-12) 100 mcg tablet Discontinued 100 ug PO As Directed March 25, 2017 1:00am March 29, 2017 3:40pm Start: 11-06-2016 B-12 100 MCG T ABS take as directed CYANOCOBALAMIN [id number] Fatuma Jung MD Problems Active Problems Problem Classification Problem Date Documented Date Episodic/Chronic Cardiac dysrhythmias (9 sources) Ventricular premature beats; Translations: [Ventricular premature depolarization] 09-29-2019 Chronic Conditions associated with dizziness or vertigo (6 sources) Dizziness; Translations: [Dizziness and giddiness] Onset: 01-03-2025 Episodic Coronary atherosclerosis and other heart disease (19 sources) Coronary atherosclerosis; Translations: [Atherosclerotic heart disease of [place] coronary artery without angina pectoris] Onset: 5 Chronic Comment on above: Mild nonobstructive CAD per LHC done per [facility]N @ [facility] the patient denies any anginal type symptoms. Secondary risk factors are addressed. Mild nonobstructive CAD per LHC done per N @ [facility]; Deficiency and other anemia (4 sources) Anemia; Translations: [Anemia, unspecified] 01-03-2024 Episodic Disorders [...] current medical therapy. Fluid and electrolyte disorders (15 sources) Hypokalemia; Translations: [Hypokalemia] Onset: 7 11-23-2016 [...] conditions (not mental disorders or infectious disease) (20 sources) Electrocardiogram abnormal; Translations: [Echocardiogram abnormal] Onset: 4 Resolved: 6 01-31-2016 Episodic Other skin disorders (20 sources) Hidradenitis suppurativa; Translations: [Axillary hidradenitis suppurativa] Onset: 2 06-23-2011 Episodic Other skin disorders (9 sources) Axillary hidradenitis suppurativa; Translations: [Hidradenitis suppurativa] 03-29-2017 Episodic [place]isi-; endo-; and myocarditis; cardiomyopathy (20 sources) Pericardial effusion; Translations: [Cardiac tamponade] Onset: 4 02-13-2014 Episodic Peripheral and visceral atherosclerosis (11 sources) Intermittent claudication; Translations: [Peripheral vascular disease, unspecified] Chronic Residual codes; unclassified (9 sources) Obstructive sleep apnea syndrome; Translations: [Obstructive sleep apnea (adult) (pediatric)] 06-29-2018 Chronic Residual codes; unclassified (9 sources) Daytime somnolence; Translations: [Other hypersomnia] 06-29-2018 [...] (current) use of other medications; Translations: [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] Onset: 01-16-2014 Resolved: 02-11-2015 [...] Onset: 03-18-2012 05-12-2012 Episodic Residual codes; unclassified (9 sources) History of cardiac catheterization; Translations: [Other specified postprocedural states] Onset: 06-13-2018 09-29-2019 Episodic Comment on above: Mild nonobstructive CAD per C done per [facility]N @ [facility] Results Test Name Value Interpretation Reference Range Facility Absolute lymphocyte countOrd ered By: Brian Michelle on 01-03-2025 Lymphocytes Auto (Unsp spec) [#/Vol] 2.60 10*3/uL 0.83-4.51 [facility] Absolute neutrophil countOrd ered By: Brian Michelle on 01-03-2025 Neutrophils (Bld) [#/Vol] 5.6 10*3/uL 2.0-7.7 [facility] Anion gap in Serum or Plasma Ordered By: Brian Michelle on 01-03-2025 Anion gap [Moles/Vol] 12 mmol/L - [facility] Automated lymphocyte count a s percentage of total leukocytesOrdered By: Brian Michelle on 01-03-2025 Lymphocytes/100 WBC Auto (Unsp spec) 26.8 % - [facility] BUN/creatinine ratioOrdered By: Brian Michelle on 01-03-2025 Urea nitrogen/Creatinine [Mass ratio] 12.5 mg/mg - [facility] Basophil percentageOrdered B y: Brian Michelle on 01-03-2025 Basophils/100 WBC (Bld) 1.1 % High 0- [facility] Bilirubin, totalOrdered By: Brian Michelle on 01-03-2025 Bilirubin [Mass/Vol] 0.31 mg/dL 0.00-1.30 [facility] CBC W/Diff, Automatedon 12-18 Absolute Lymph 2.60 X10 3/uL Normal 0.83-4.51 [facility] Comment on above: Performed By: #### L 501.9520, L100.0100, L500.4050, L501.5200, L506.0400 #### [facility] [address] [place], [place], [address] Absolute Neut 5.6 X10 3/uL Normal 2.0-7.7 [facility] Comment on above: Performed By: #### L [id number], L100.0100, L500.4050, L501.5200, L506.0400 #### [facility] [address] [place], [address] Basophils/100 WBC (Bld) 1.1 % High 0-1 [facility] Comment on above: Performed By: #### L [id number], L100.0100, L500.4050, L501.5200, L506.0400 #### [facility] [address] [place], [address] Eosinophils/100 WBC (Bld) 3.1 % Normal 0-5 [facility] Comment on above: Performed By: #### L 501.9520, L100.0100, L500.4050, L501.5200, L506.0400 #### [facility] [address] [place], [address] Erythrocyte distribution width (RBC) [Ratio] 13.9 % Normal 11.6-14.6 [facility] Comment on above: Performed By: #### L 501.9520, L100.0100, L500.4050, L501.5200, L506.0400 #### [facility] [address] [place], [address] Hematocrit (Bld) [Volume fraction] 39.2 % Low 40-54 [facility] Comment on above: Performed By: #### L 501.9520, L100.0100, L500.4050, L501.5200, L506.0400 #### [facility] [address] [place], [address] Hemoglobin (Bld) [Mass/Vol] 12.9 g/dL Low 13.0-16.5 [facility] Comment on above: Performed By: #### L 501.9520, L100.0100, L500.4050, L501.5200, L506.0400 #### [facility] [address] [place], [address] IG% 0.600 Normal 0.0-0.9 [facility] Comment on above: Result Comment: IG% - Immature Granulocytes (promyelocytes, myelocytes and metamyelocytes) > 1% indicates that a LEFT SHIFT is Present. Performed By: #### L 501.9520, L100.0100, L500.4050, L501.5200, L506.0400 #### [facility] [address] [place], [address] Lymphocytes/100 WBC (Bld) 26.8 % Normal 19-41 [facility] Comment on above: Performed By: #### L 501.9520, L100.0100, L500.4050, L501.5200, L506.0400 #### [facility] [address] [place], [address] MCH (RBC) [Entitic mass] 27.4 pg Normal 27.0-32.0 [facility] Comment on above: Performed By: #### L 501.9520, L100.0100, L500.4050, L501.5200, L506.0400 #### [facility] [address] [place], [address] MCHC (RBC) [Mass/Vol] 32.9 g/dL Normal 32-36 [facility] Comment on above: Performed By: #### L 501.9520, L100.0100, L500.4050, L501.5200, L506.0400 #### [facility] [address] [place], [address] MCV (RBC) [Entitic vol] 83.2 fL Normal 80-94 [facility] Comment on above: Performed By: #### L 501.9520, L100.0100, L500.4050, L501.5200, L506.0400 #### [facility] [address] [place], [address] Monocytes/100 WBC (Bld) 10.4 % High 0-10 [facility] Comment on above: Performed By: #### L 501.9520, L100.0100, L500.4050, L501.5200, L506.0400 #### [facility] [address] [place], [address] Neutrophils/100 WBC (Bld) 58.0 % Normal 47-70 [facility] Comment on above: Performed By: #### L 501.9520, L100.0100, L500.4050, L501.5200, L506.0400 #### [facility] [address] [place], [address] Nucleated RBC (Bld) [#/Vol] 0 10*3/uL Normal 0-5 [facility] Comment on above: Performed By: #### L 501.9520, L100.0100, L500.4050, L501.5200, L506.0400 #### [facility] [address] [place], [address] Platelet mean volume (Bld) [Entitic vol] 9.3 fL Normal 6.2-12.0 [facility] Comment on above: Performed By: #### L 501.9520, L100.0100, L500.4050, L501.5200, L506.0400 #### [facility] [address] [place], [address] Platelets (Bld) [#/Vol] 320 10*3/uL Normal 150-450 [facility] Comment on above: Performed By: #### L 501.9520, L100.0100, L500.4050, L501.5200, L506.0400 #### [facility] [address] [place], [address] RBC (Bld) [#/Vol] 4.71 10*6/uL Normal 4.6-6.2 [facility] Comment on above: Performed By: #### L 501.9520, L100.0100, L500.4050, L501.5200, L506.0400 #### [facility] [address] [place], [address] RDW SD 42.8 fl Normal 35.1-43.9 [facility] Comment on above: Performed By: #### L 501.9520, L100.0100, L500.4050, L501.5200, L506.0400 #### [facility] [address] [place], [address] WBC (Bld) [#/Vol] 9.7 10*3/uL Normal 4.4-11.0 [facility] Comment on above: Performed By: #### L 501.9520, L100.0100, L500.4050, L501.5200, L506.0400 #### [facility] [address] [place], [address] Carbon dioxide, total [Moles /volume] in Central venous bloodOrdered By: Brian Michelle on 01-03-2025 CO2 [Moles/Vol] 23.0 mmol/L 21.0-32.0 [facility] Cardiology Visit Reporton Cardiology Visit Report [facility] [address] [place] [address] OFFICE VISIT Date of Service: 01/03/25 MR#: [id number] Acct: [id number] Name: KAITMARY ZHENG Rep #: [id number] : 1960 Provider: GITA benjamin Age/Sex: 64/M [place] [facility] [place] Signed HPI HPI History of Present Illness Details: This is a 64-year-old -Italian male who presents today for outpatient cardiovascular follow- up visit. He has a history of nonobstructive CAD, hyperlipidemia, hypertension, mild, and a remote history of pericarditis/pericardi al effusion with cardiac tamponade requiring pericardiocentesis (01/2014). The patient's last heart cath was 2018 where he had minimal coronary artery disease and normal LV function. Patient contacted our office today expressing concerns regarding shortness of breath, fatigue, and dizziness. He was asked to present to the office for further evaluation. While in office, he denies chest, arm, jaw, or neck discomfort. He denies palpitations or bilateral lower extreme edema. He acknowledges shortness breath with activity. He denies shortness breath at rest, orthopnea, cough, or PND. He acknowledges dizziness over the last 6 days. He describes this as "off balance". He acknowledges lightheadedness and weakness. This is most noted with sudden or quick position changes. He denies associated nausea after the first episode. This is most noted in the morning and tends to be improved throughout day. He denies any near-syncope or syncope. He denies fatigue. Intake Vital Signs 10/19/24 08:54 01/03/25 12:02 Height 5 ft 11 in 5 ft 11 in Weight: 243 lb 245 lb BMI 33.9 34.2 BP 119/64 137/74 H Blood Pressure Location Rt brachial Lt brachial Position Sitting Sitting Respiration 18 18 Pulse 66 51 L Pulse Source Monitor NIBP Intake Visit Reasons: SOB,dizzy, fatigue, see clinical Wardrobe Attendant Required: No Is patient in pain?: No Allergies Latex, Natural Rubber Allergy (Verified 01/03/25 12:03) Rash Medications ???Medication ???Instructions ???Recorded ???Confirmed ???Type multivitamin,tx-iron-m inerals 1 tab PO DIRECTED 03/25/1712/18 History (Complete Multivitamin tablet) tadalafil 5 mg tablet (Cialis) 5 mg PO QDAY 03/25/17 01/03/25 His tory tamsulosin 0.4 mg capsule (Flomax) 0.4 mg PO QDAY 03/25/17 01/03/25 History aspirin 81 mg tablet,delayed 81 mg PO DAILY #90 tabs 05/31/18 0 01/03/25 Rx release (Adult Aspirin Regimen) dutasteride 0.5 mg capsule 0.5 mg PO QHS 07/26/23 01/03/25 Hi story amlodipine 10 mg-valsartan 320 mg 1 tab PO DAILY #90 tabs 05/24/24 01/03/25 Rx tablet hydrochlorothiazide 25 mg tablet 25 mg PO QDAY #90 tabs 08/23/24 Rx Held on 01/03/25. 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 Normal [facility] Chloride assayOrdered By: Dariana Michelle on 01-03-2025 Chloride [Moles/Vol] 104 mmol/L 98-108 [facility] Comprehensive Metabolic Prof ilon 01-03-2025 Albumin [Mass/Vol] 4.3 g/dL Normal 3.4-4.8 [facility] Comment on above: Performed By: #### L 501.9520, L100.0100, L500.4050, L501.5200, L506.0400 #### [facility] [address] [place], [address] Albumin/Globulin [Mass ratio] 1.3 {ratio} Normal 0.9-2.4 [facility] Comment on above: Performed By: #### L [id number], L100.0100, L500.4050, L501.5200, L506.0400 #### [facility] [address] [place], [address] ALK PHOS 72 U/L Normal 40-129 [facility] Comment on above: Performed By: #### L [id number], L100.0100, L500.4050, L501.5200, L506.0400 #### [facility] [address] [place], [address] ALT [Catalytic activity/Vol] 16 U/L Normal <=46 [facility] Comment on above: Performed By: #### L 501.9520, L100.0100, L500.4050, L501.5200, L506.0400 #### [facility] [address] [place], [address] AST [Catalytic activity/Vol] 24 U/L Normal <=37 [facility] Comment on above: Performed By: #### L [id number], L100.0100, L500.4050, L501.5200, L506.0400 #### [facility] [address] [place], [address] Bilirubin [Mass/Vol] 0.31 mg/dL Normal 0.00-1.30 [facility] Comment on above: Performed By: #### L 501.9520, L100.0100, L500.4050, L501.5200, L506.0400 #### [facility] [address] [place], [address] BUN/CRE 12.5 RATIO Normal 10-20 [facility] Comment on above: Performed By: #### L [id number], L100.0100, L500.4050, L501.5200, L506.0400 #### [facility] [address] [place], [address] Calcium [Mass/Vol] 9.6 mg/dL Normal 7.6-11.0 [facility] Comment on above: Performed By: #### L 501.9520, L100.0100, L500.4050, L501.5200, L506.0400 #### [facility] [address] [place], [address] Chloride [Moles/Vol] 104 mmol/L Normal 98-108 [facility] Comment on above: Performed By: #### L [id number], L100.0100, L500.4050, L501.5200, L506.0400 #### [facility] [address] [place], [address] CO2 [Moles/Vol] 23.0 mmol/L Normal 21.0-32.0 [facility] Comment on above: Performed By: #### L 501.9520, L100.0100, L500.4050, L501.5200, L506.0400 #### [facility] [address] [place], [address] Creatinine [Mass/Vol] 0.96 mg/dL Normal 0.70-1.20 [facility] Comment on above: Performed By: #### L [id number], L100.0100, L500.4050, L501.5200, L506.0400 #### [facility] [address] [place], [address] GAP 12 Normal 5-15 [facility] Comment on above: Performed By: #### L 501.9520, L100.0100, L500.4050, L501.5200, L506.0400 #### [facility] [address] [place], [address] GFR/1.73 sq M.predicted among non-blacks MDRD (S/P/Bld) [Vol rate/Area] 87 mL/min/{1.73_m2} Normal >60 [facility] Comment on above: Result Comment: mL/m in/1.73m2 CKD-EPI Creatinine Equation (2020) Performed By: #### L [id number], L100.0100, L500.4050, L501.5200, L506.0400 #### [facility] [address] [place], [address] Globulin (S) [Mass/Vol] 3.2 g/dL Normal 2.2-4.2 [facility] Comment on above: Performed By: #### L [id number], L100.0100, L500.4050, L501.5200, L506.0400 #### [facility] [address] [place], [address] Glucose [Mass/Vol] 93 mg/dL Normal 70-99 [facility] Comment on above: Performed By: #### L [id number], L100.0100, L500.4050, L501.5200, L506.0400 #### [facility] [address] [place], [address] Potassium [Moles/Vol] 3.8 mmol/L Normal 3.3-5.1 [facility] Comment on above: Performed By: #### L 501.9520, L100.0100, L500.4050, L501.5200, L506.0400 #### [facility] [address] [place], [address] Sodium [Moles/Vol] 139 mmol/L Normal 133-145 [facility] Comment on above: Performed By: #### L [id number], L100.0100, L500.4050, L501.5200, L506.0400 #### [facility] [address] [place], [address] T PROT 7.4 g/dL Normal 5.9-8.4 [facility] Comment on above: Performed By: #### L [id number], L100.0100, L500.4050, L501.5200, L506.0400 #### [facility] [address] [place], [address] Urea nitrogen [Mass/Vol] 12 mg/dL Normal 4-19 [facility] Comment on above: Performed By: #### L [id number], L100.0100, L500.4050, L501.5200, L506.0400 #### [facility] [address] [place], [address] Eosinophil percentageOrdered By: Brian Michelle on 01-03-2025 Eosinophils/100 WBC (Bld) 3.1 % 0-5 [facility] Erythrocyte distribution wid th ratioOrdered By: Brian Michelle on 01-03-2025 Erythrocyte distribution width (RBC) [Ratio] 13.9 % 11.6-14.6 [facility] Erythrocyte distribution wid th standard deviationOrdered By: Brian Michelle on 01-03-2025 Erythrocyte distribution width (RBC) [Ratio] 42.8 fl 35.1-43.9 [facility] Glomerular filtration rate ( GFR) estimation/1.73 sq m using serum, plasma, or whole bOrdered By: Brian Michelle on 01-03-2025 GFR/1.73 sq M.predicted among non-blacks MDRD (S/P/Bld) [Vol rate/Area] 87 mL/min/{1.73_m2} >60 [facility] Comment on above: mL/min/1.73m2 CKD-EP I Creatinine Equation (2020) Hematocrit Auto (Bld) [Volum e fraction]Ordered By: Brian Michelle on 01-03-2025 Hematocrit (Bld) [Volume fraction] 39.2 % Low 40-54 [facility] Hemoglobin measurementOrdere d By: Brian Michelle on 01-03-2025 Hemoglobin (Bld) [Mass/Vol] 12.9 g/dL Low 13.0-16.5 [facility] Immature granulocytes/100 WB C Auto (Bld)Ordered By: Brian Michelle on 01-03-2025 Immature granulocytes/100 WBC (Bld) 0.600 % 0.0-0.9 [facility] Comment on above: IG% - Immature Granu locytes (promyelocytes, myelocytes and metamyelocytes) > 1% indicates that a LEFT SHIFT is Present. Laboratory - Chemistry and C hemistry - challengeOrdered By: Brian Michelle on 01-03-2025 AST [Catalytic activity/Vol] 24 U/L <38 [facility] MCV (mean corpuscular volume ) determinationOrdered By: Brian Michelle on 01-03-2025 MCV (RBC) [Entitic vol] 83.2 fL 80-94 [facility] Magnesiumon 01-03-2025 Magnesium [Mass/Vol] 2.1 mg/dL Normal 1.5-2.2 [facility] Comment on above: Performed By: #### L [id number], L100.0100, L500.4050, L501.5200, L506.0400 #### [facility] [address] [place], [address] Magnesium measurement (mass/ volume)Ordered By: Brian Michelle on 01-03-2025 Magnesium (Unsp spec) [Mass/Vol] 2.1 mg/dL 1.5-2.2 [facility] Mean corpuscular hemoglobin (MCH) determinationOrdered By: Brian Michelle on 01-03-2025 MCH (RBC) [Entitic mass] 27.4 pg 27.0-32.0 [facility] Mean corpuscular hemoglobin concentration (MCHC) determinationOrdered By: Brian Michelle on 01-03-2025 MCHC (RBC) [Mass/Vol] 32.9 g/dL 32-36 [facility] Mean platelet volume determi nationOrdered By: Brian Michelle on 01-03-2025 Platelet mean volume (Bld) [Entitic vol] 9.3 fL 6.2-12.0 [facility] Monocyte percentageOrdered B y: Brian Michelle on 01-03-2025 Monocytes/100 WBC (Bld) 10.4 % High 0-10 [facility] Neutrophil percentageOrdered By: Brian Michelle on 01-03-2025 Neutrophils/100 WBC (Bld) 58.0 % 47-70 [facility] Nucleated red blood cell per centageOrdered By: Brian Michelle on 01-03-2025 Nucleated RBC/100 WBC (Bld) [Ratio] 0 % 0-5 [facility] Platelet countOrdered By: Dariana Michelle on 01-03-2025 Platelets (Bld) [#/Vol] 320 10*3/uL 150-450 [facility] Potassium measurement (mass/ volume)Ordered By: Brian Michelle on 01-03-2025 Potassium (Unsp spec) [Mass/Vol] 3.8 mmol/L 3.3-5.1 [facility] RBC Auto (Bld) [#/Vol]Ordere d By: Brian Michelle on 01-03-2025 RBC (Bld) [#/Vol] 4.71 10*6/uL 4.6-6.2 [facility] Serum creatinine measurement (mass/volume)Ordered By: Brian Michelle on 01-03-2025 Creatinine [Mass/Vol] 0.96 mg/dL 0.70-1.20 [facility] Serum globulin measurementOr dered By: Brian Michelle on 01-03-2025 Globulin (S) [Mass/Vol] 3.2 g/dL 2.2-4.2 [facility] Serum glucose measurement (m ass/volume)Ordered By: Brian Michelle on 01-03-2025 Glucose [Mass/Vol] 93 mg/dL 70-99 [facility] Serum or plasma alanine hackett otransferase (ALT) measurementOrdered By: Brian Michelle on 01-03-2025 ALT [Catalytic activity/Vol] 16 U/L <47 [facility] Serum or plasma albumin jarod urement (mass/volume)Ordered By: Brian Michelle on 01-03-2025 Albumin [Mass/Vol] 4.3 g/dL 3.4-4.8 [facility] Serum or plasma albumin/glob ulin mass ratioOrdered By: Brian Michelle on 01-03-2025 Albumin/Globulin [Mass ratio] 1.3 {ratio} 0.9-2.4 [facility] Serum or plasma alkaline joleen sphatase measurementOrdered By: Brian Michelle on 01-03-2025 ALP [Catalytic activity/Vol] 72 U/L 40-129 [facility] Serum or plasma calcium jarod urement (mass/volume)Ordered By: Brian Michelle on 01-03-2025 Calcium [Mass/Vol] 9.6 mg/dL 7.6-11.0 [facility] Serum or plasma urea nitroge n measurement (mass/volume)Ordered By: Brian Michelle on 01-03-2025 Urea nitrogen [Mass/Vol] 12 mg/dL 4-19 [facility] Sodium levelOrdered By: Brian Michelle on 01-03-2025 Sodium [Moles/Vol] 139 mmol/L 133-145 [facility] T4 Free Directon 01-03-2025 T4 FREE DIRECT 1.10 ng/dL Normal 0.76-1.46 [facility] Comment on above: Performed By: #### L [id number], L100.0100, L500.4050, L501.5200, L506.0400 #### [facility] [address] [place], [address] T4 freeOrdered By: Brain Michelle on 01-03-2025 Free T4 [Mass/Vol] 1.10 ng/dL 0.76-1.46 [facility] TSH DL <= 0.005 mIU/L QnOrde red By: Brian Michelle on 01-03-2025 TSH Qn 1.950 uIU/mL 0.300-4.200 [facility] Thyroid Stim Hormone (TSH)on 01-03-2025 TSH 1.950 uIU/mL Normal 0.300-4.200 [facility] Comment on above: Performed By: #### L [id number], L100.0100, L500.4050, L501.5200, L506.0400 #### [facility] [address] [place], [address] Total proteinOrdered By: Lion Michelle on 01-03-2025 Protein [Mass/Vol] 7.4 g/dL 5.9-8.4 [facility] White blood cell (WBC) count Ordered By: Brian Michelle on 01-03-2025 WBC (Bld) [#/Vol] 9.7 10*3/uL 4.4-11.0 [facility] Lipid Profileon 12-08-2024 CHOL Normal <=200 [facility] Comment on above: Result Comment: ORDE RS ON 06/02/24 Performed By: #### L 500.4100, L500.3400 #### [facility] [address] [place], [address] CHOL:HDL Normal [facility] Comment on above: Result Comment: ORDE RS ON 06/02/24 Performed By: #### L 500.4100, L500.3400 #### [facility] [address] [place], [address] CLDL Normal [facility] Comment on above: Result Comment: ORDE RS ON 06/02/24 Performed By: #### L 500.4100, L500.3400 #### [facility] [address] [place], [address] HDL Normal [facility] Comment on above: Result Comment: ORDE RS ON 06/02/24 Performed By: #### L 500.4100, L500.3400 #### [facility] [address] [place], [address] TRIG Normal [facility] Comment on above: Result Comment: ORDE RS ON 06/02/24 Performed By: #### L 500.4100, L500.3400 #### [facility] [address] [place], [address] VLDL Normal 5-40 [facility] Comment on above: Result Comment: ORDE RS ON 06/02/24 Performed By: #### L 500.4100, L500.3400 #### [facility] [address] [place], [address] Liver Profileon 12-08-2024 ALB Normal 3.4-4.8 [facility] Comment on above: Result Comment: ORDE RS ON 06/02/24 Performed By: #### L 500.4100, L500.3400 #### [facility] [address] [place], [address] ALK PHOS Normal 40-129 [facility] Comment on above: Result Comment: ORDE RS ON 06/02/24 Performed By: #### L 500.4100, L500.3400 #### [facility] [address] [place], [address] ALT Normal <=46 [facility] Comment on above: Result Comment: ORDE RS ON 06/02/24 Performed By: #### L 500.4100, L500.3400 #### [facility] [address] [place], [address] AST Normal <=37 [facility] Comment on above: Result Comment: ORDE RS ON 06/02/24 Performed By: #### L 500.4100, L500.3400 #### [facility] [address] [place], [address] D BILI Normal 0.00-0.30 [facility] Comment on above: Result Comment: ORDE RS ON 06/02/24 Performed By: #### L 500.4100, L500.3400 #### [facility] [address] [place], [address] T BILI Normal 0.00-1.30 [facility] Comment on above: Result Comment: ORDE RS ON 06/02/24 Performed By: #### L 500.4100, L500.3400 #### [facility] [address] [place], [address] T PROT Normal 5.9-8.4 [facility] Comment on above: Result Comment: ORDE RS ON 06/02/24 Performed By: #### L 500.4100, L500.3400 #### [facility] [address] [place], [address] PSA,Total- Diagnosticon 08-2 PSA, DIAGNOSTIC 10.00 ng/mL High 0.00-4.00 [facility] Comment on above: Result Comment: This test was performed using the [employer] tPSA method. Measured values of a patient??sample can vary depending on the testing procedure used. PSA values determined on patient samples by different testing procedures cannot be used interchangeably. If there is a change in PSA assays while monitoring therapy, sequential testing should be performed to confirm baseline values. Performed By: #### L 501.9940 #### [facility] [address] [place], [address] Cardiology Visit Reporton Cardiology Visit Report [facility] 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 Normal [facility] Basophil percentageOrdered B y: Brian Miguel Angel on 05-28-2023 Basophil percentage 14.00 ng/mL 0.0-4.0 [facility] Comment on above: This test was perfor med using the TPSA assay method for the[employer] chemistry system. Values obtained with differentassay methods cannot be used interchangably.When changing PSA assays in the course of monitoring apatient, additional sequential testing should be carriedout to confirm baseline values. Bilirubin [Mass/Vol] 0.40 mg/dL 0.20-1.00 [facility] Comment on above: For patients on eltr ombopag therapy, use of Dimension [place] TBIL is not recommended. Cholesterol [Mass/Vol] 194 mg/dL <200 [facility] Comment on above: <200 mg/dL Desirable 200-240 mg/dL Borderline >240 mg/dL High Risk Protein [Mass/Vol] 7.7 g/dL 6.4-8.2 [facility] Triglyceride [Mass/Vol] 169 mg/dL <199 [facility] Comment on above: The drugs N-Acetylcy steine and Metamizole may falsely depress this assay.Serum Triglycerides Reference Interval Normal <150 mg/dL Borderline high 150 - 199 mg/dL High 200 - 499 mg/dL Very High > or = 500 mg/dL Direct bilirubinOrdered By: Brian Michelle on 05-28-2023 Bilirubin.direct [Mass/Vol] 0.10 mg/dL 0.00-0.30 [facility] - Chemistry and C hemistry - challengeOrdered By: Brian Michelle on 05-28-2023 ALP [Catalytic activity/Vol] 74 U/L 45-117 [facility] ALT [Catalytic activity/Vol] 21 U/L 16-61 [facility] Cholesterol in HDL [Mass/Vol] 39 mg/dL >40 [facility] Comment on above: The drugs N-Acetylcy steine and Metamizole may falsely depress this assay. Reference Range HDL <40 mg/dL Low HDL Cholesterol HDL >or= 60 mg/dL High HDL Cholesterol Cholesterol in LDL [Mass/Vol] 121 mg/dL 0-130 [facility] Globulin (S) [Mass/Vol] 3.9 g/dL 2.2-4.2 [facility] No Panel InformationOrdered By: Brian Michelle on 05-28-2023 VLDL Cholesterol 34 mg/dL 5-40 [facility] Thin prep Papanicolaou smear with manual screeningOrdered By: Brian Michelle on 05-28-2023 Thin prep Papanicolaou smear with manual screening 3.8 g/dL 3.2-5.0 [facility] Thin prep Papanicolaou smear with manual screening 12 U/L 15-37 [facility] Basophil percentageOrdered B y: Brian Michelle on 06-19-2022 Bilirubin [Mass/Vol] 0.30 mg/dL 0.20-1.00 [facility] Comment on above: For patients on eltr ombopag therapy, use of Dimension [place] TBIL is not recommended. Cholesterol [Mass/Vol] 165 mg/dL <200 [facility] Comment on above: <200 mg/dL Desirable 200-240 mg/dL Borderline >240 mg/dL High Risk Protein [Mass/Vol] 7.5 g/dL 6.4-8.2 [facility] Triglyceride [Mass/Vol] 147 mg/dL <199 [facility] Comment on above: The drugs N-Acetylcy steine and Metamizole may falsely depress this assay.Serum Triglycerides Reference Interval Normal <150 mg/dL Borderline high 150 - 199 mg/dL High 200 - 499 mg/dL Very High > or = 500 mg/dL Direct bilirubinOrdered By: Brian Michelle on 06-19-2022 Bilirubin.direct [Mass/Vol] 0.10 mg/dL 0.00-0.30 [facility] - Chemistry and C hemistry - challengeOrdered By: Brian Michelle on 06-19-2022 ALP [Catalytic activity/Vol] 68 U/L 45-117 [facility] ALT [Catalytic activity/Vol] 19 U/L 16-61 [facility] Globulin (S) [Mass/Vol] 3.8 g/dL 2.2-4.2 [facility] Serum or plasma albumin jarod urement (mass/volume)Ordered By: Brian Michelle on 06-19-2022 Albumin [Mass/Vol] 3.7 g/dL 3.2-5.0 [facility] Serum or plasma cholesterol in HDL measurement (mass/volume)Ordered By: Brian Michelle on 06-19-2022 Cholesterol in HDL [Mass/Vol] 35 mg/dL >40 [facility] Comment on above: The drugs N-Acetylcy steine and Metamizole may falsely depress this assay. Reference Range HDL <40 mg/dL Low HDL Cholesterol HDL >or= 60 mg/dL High HDL Cholesterol Serum or plasma cholesterol in VLDL measurement (mass/volume)Ordered By: Brian Michelle on 06-19-2022 Cholesterol in VLDL [Mass/Vol] 29 mg/dL 5-40 [facility] Serum or plasma low density lipoprotein (LDL) cholesterol measurement (mass/volume)Ordered By: Brian Michelle on 06-19-2022 Cholesterol in LDL [Mass/Vol] 101 mg/dL 0-130 [facility] Thin prep Papanicolaou smear with manual screeningOrdered By: Brian Michelle on 06-19-2022 Thin prep Papanicolaou smear with manual screening 21 U/L 15-37 [facility] No Panel InformationOrdered By: Dr. Olivas on 05-06-2022 Prostate Specific Antigen Total 13.80 ng/mL 0.0-4.0 [facility] Comment on above: This test was perfor med using the TPSA assay method for the[employer] chemistry system. Values obtained with differentassay methods cannot be used interchangably.When changing PSA assays in the course of monitoring apatient, additional sequential testing should be carriedout to confirm baseline values. Absolute lymphocyte counton 12-03-2021 Lymphocytes Auto (Unsp spec) [#/Vol] 2.31 10*3/uL 0.83-4.51 [facility] Work Phone: Basophil percentageon 2021 Basophils/100 WBC (Bld) 1.1 % 0-1 [facility] Work Phone: Bilirubin [Mass/Vol] 0.30 mg/dL 0.20-1.00 [facility] Work Phone: Comment on above: For patients on eltr ombopag therapy, use of Dimension [place] TBIL is not recommended. Chloride [Moles/Vol] 107 mmol/L 98-107 [facility] Work Phone: Cholesterol [Mass/Vol] 162 mg/dL <200 [facility] Work Phone: Comment on above: <200 mg/dL Desirable 200-240 mg/dL Borderline >240 mg/dL High Risk Eosinophils/100 WBC (Bld) 3.3 % 0-5 [facility] Work Phone: Glucose [Mass/Vol] 104 mg/dL 74-106 [facility] Work Phone: Comment on above: Fasting Glucose resu lt from 100 to 125 mg/dL suggests IMPAIRED HOMEOSTASIS per A.D.A. criteria. Neutrophils (Bld) [#/Vol] 6.3 10*3/uL 2.0-7.7 [facility] Work Phone: Neutrophils/100 WBC (Bld) 62.4 % 47-70 [facility] Work Phone: [phone] Potassium [Moles/Vol] 3.8 mmol/L 3.5-5.1 [facility]: Protein [Mass/Vol] 7.6 g/dL 6.4-8.2 [facility] Work Phone: Sodium [Moles/Vol] 139 mmol/L 136-145 [facility] Work Phone: Triglyceride [Mass/Vol] 147 mg/dL <199 [facility] Work Phone: Comment on above: The drugs N-Acetylcy steine and Metamizole may falsely depress this assay.Serum Triglycerides Reference Interval Normal <150 mg/dL Borderline high 150 - 199 mg/dL High 200 - 499 mg/dL Very High > or = 500 mg/dL WBC (Bld) [#/Vol] 10.0 10*3/uL 4.4-11.0 [facility] Work Phone: Blood erythrocytes count (nu mber/volume)on 12-03-2021 RBC (Bld) [#/Vol] 4.74 10*6/uL 4.6-6.2 [facility] Work Phone: Blood hemoglobin measurement (mass/volume)on 12-03-2021 Hemoglobin (Bld) [Mass/Vol] 13.0 g/dL 13.0-16.5 [facility] Work Phone: Blood lymphocytes/100 leukoc yteson 12-03-2021 Lymphocytes/100 WBC (Bld) 23.0 % 19-41 [facility] Work Phone: Blood monocytes/100 leukocyt eson 12-03-2021 Monocytes/100 WBC (Bld) 9.8 % 0-10 [facility] Work Phone: Blood platelet mean volumeon 12-03-2021 Platelet mean volume (Bld) [Entitic vol] 10.2 fL 6.2-12.0 [facility] [facility] Work Phone: Determination of erythrocyte mean corpuscular volume (MCV)on 12-03-2021 MCV (RBC) [Entitic vol] 85.9 fL 80-94 [facility] Work Phone: Hematocrit Auto (Bld) [Volum e fraction]on 12-03-2021 Hematocrit (Bld) [Volume fraction] 40.7 % 40-54 [facility] Work Phone: Laboratory - Chemistry and C hemistry - challengeon 12-03-2021 ALP [Catalytic activity/Vol] 69 U/L 45-117 [facility] Work Phone: ALT [Catalytic activity/Vol] 21 U/L 16-61 [facility] Work Phone: CO2 [Moles/Vol] 24.0 mmol/L 21.0-32.0 [facility] Work Phone: Globulin (S) [Mass/Vol] 3.8 g/dL 2.2-4.2 [facility] Work Phone: Urea nitrogen/Creatinine [Mass ratio] 13.5 mg/mg 10-20 [facility] Work Phone: Laboratory - Hematology and Cell countson 12-03-2021 Erythrocyte distribution width (RBC) [Entitic vol] 44.6 fL 35.1-43.9 [facility] Work Phone: Erythrocyte distribution width (RBC) [Ratio] 14.2 % 11.6-14.6 [facility] Work Phone: Immature granulocytes/100 WBC (Bld) 0.400 % 0.0-0.9 [facility] Work Phone: Comment on above: IG% - Immature Granu locytes (promyelocytes, myelocytes and metamyelocytes) > 1% indicates that a LEFT SHIFT is Present. MCH (RBC) [Entitic mass] 27.4 pg 27.0-32.0 [facility] Work Phone: Nucleated RBC/100 WBC (Bld) [Ratio] 0 % 0-5 [facility] Work Phone: MCHC Auto (RBC) [Mass/Vol]on 12-03-2021 MCHC (RBC) [Mass/Vol] 31.9 g/dL 32-36 [facility] Work Phone: No Panel Informationon 12-03 Estimated GFR (MDRD) Amer 93 mL/min >60 [facility] Work Phone: Comment on above: GFR Calc Estimated GFR (MDRD) Non-Af Amer 77 mL/min >60 [facility] Work Phone: Comment on above: Non- GFR Calc Platelets bldon 12-03-2021 Platelets (Bld) [#/Vol] 346 10*3/uL 150-450 [facility] Work Phone: Serum or plasma albumin jarod urement (mass/volume)on 12-03-2021 Albumin [Mass/Vol] 3.8 g/dL 3.2-5.0 [facility] Work Phone: Serum or plasma albumin/glob ulin mass ratioon 12-03-2021 Albumin/Globulin [Mass ratio] 1.0 {ratio} 0.9-2.4 [facility] Work Phone: Serum or plasma calcium jarod urement (mass/volume)on 12-03-2021 Calcium [Mass/Vol] 9.4 mg/dL 8.5-10.1 [facility] Work Phone: Serum or plasma cholesterol in HDL measurement (mass/volume)on 12-03-2021 Cholesterol in HDL [Mass/Vol] 35 mg/dL >40 [facility] Work Phone: Comment on above: The drugs N-Acetylcy steine and Metamizole may falsely depress this assay. Reference Range HDL <40 mg/dL Low HDL Cholesterol HDL >or= 60 mg/dL High HDL Cholesterol Serum or plasma cholesterol in VLDL measurement (mass/volume)on 12-03-2021 Cholesterol in VLDL [Mass/Vol] 29 mg/dL 5-40 [facility] Work Phone: Serum or plasma creatinine m easurement (mass/volume)on 12-03-2021 Creatinine [Mass/Vol] 1.04 mg/dL 0.70-1.30 [facility] Work Phone: Comment on above: The validity of the calculated GFR & GFRAA in patients over 70 years has not been determined. Clinical correlation is essential. Serum or plasma low density lipoprotein (LDL) cholesterol measurement (mass/volume)on 12-03-2021 Cholesterol in LDL [Mass/Vol] 98 mg/dL 0-130 [facility] Work Phone: Serum or plasma urea nitroge n measurement (mass/volume)on 12-03-2021 Urea nitrogen [Mass/Vol] 14 mg/dL 7-18 [facility] Work Phone: Thin prep Papanicolaou smear with manual screeningon 12-03-2021 Thin prep Papanicolaou smear with manual screening 16 U/L 15-37 [facility] Work Phone: Thin prep Papanicolaou smear with manual screening 8 5-15 [facility] Work Phone: Basophil percentageon 2021 Bilirubin [Mass/Vol] 0.30 mg/dL 0.20-1.00 [facility] Work Phone: Comment on above: For patients on eltr ombopag therapy, use of Dimension Cambria TBIL is not recommended. Cholesterol [Mass/Vol] 190 mg/dL <200 [facility] Work Phone: Comment on above: <200 mg/dL Desirable 200-240 mg/dL Borderline >240 mg/dL High Risk Protein [Mass/Vol] 7.9 g/dL 6.4-8.2 [facility] Work Phone: Triglyceride [Mass/Vol] 144 mg/dL [facility] Work Phone: Comment on above: The drugs N-Acetylcy steine and Metamizole may falsely depress this assay.Serum Triglycerides Reference Interval Normal <150 mg/dL Borderline high 150 - 199 mg/dL High 200 - 499 mg/dL Very High > or = 500 mg/dL Direct bilirubinon 2 Bilirubin.direct [Mass/Vol] 0.10 mg/dL 0.00-0.30 [facility] Work Phone: Laboratory - Chemistry and C hemistry - challengeon 06-21-2021 ALP [Catalytic activity/Vol] 67 U/L 45-117 [facility] Work Phone: ALT [Catalytic activity/Vol] 27 U/L 16-61 [facility] Work Phone: Globulin (S) [Mass/Vol] 4.1 g/dL 2.2-4.2 [facility] Work Phone: Serum or plasma albumin jarod urement (mass/volume)on 06-21-2021 Albumin [Mass/Vol] 3.8 g/dL 3.2-5.0 [facility] Work Phone: Serum or plasma cholesterol in HDL measurement (mass/volume)on 06-21-2021 Cholesterol in HDL [Mass/Vol] 38 mg/dL [facility] Work Phone: Comment on above: The drugs N-Acetylcy steine and Metamizole may falsely depress this assay. Reference Range HDL <40 mg/dL Low HDL Cholesterol HDL >or= 60 mg/dL High HDL Cholesterol Serum or plasma cholesterol in VLDL measurement (mass/volume)on 06-21-2021 Cholesterol in VLDL [Mass/Vol] 29 mg/dL 5-40 [facility] Work Phone: Serum or plasma low density lipoprotein (LDL) cholesterol measurement (mass/volume)on 06-21-2021 Cholesterol in LDL [Mass/Vol] 123 mg/dL 0-130 [facility] Work Phone: Thin prep Papanicolaou smear with manual screeningon 06-21-2021 Thin prep Papanicolaou smear with manual screening 22 U/L 15-37 [facility] Work Phone: No Panel Informationon 04-22 Prostate Specific Antigen Total 13.10 ng/mL 0.0-4.0 [facility] Work Phone: Comment on above: This test was perfor med using the TPSA assay method for [employer] chemistry system. Values obtained with differentassay methods cannot be used interchangably.When changing PSA assays in the course of monitoring apatient, additional sequential testing should be carriedout to confirm baseline values. Laboratory - Microbiology an d Antimicrobial susceptibilityon 04-16-2021 SARS-CoV-2 (COVID-19) RNA VENU+probe Ql (Unsp spec) Detected Not Detect [facility] Work Phone: Comment on above: Normal Reference Ran ge: Not DetectedMethod:(RT-PCR) real-time reverse transcriptase PCRLuminex HOLLAND Instrument*The Food and Drug Administration (FDA) has issued an Emergency Use Authorization (EAU) for the HOLLAND SARS-CoV-2 Assay for the rapid detection of [...] clinical presentation or has had recent exposure. RADHAOVon 10-03-2018 CNOV Office Visit (WSTR ) DANIEL CARBALLO ([id number]) 1960 M Date Time Provider Department 10/03/18 6:45 PM LUDIVINA FONTAINE) [facility] During your visit today, we recorded the following information about you: Temperature Pulse Respiration Blood pressure 97.8 degrees 68/minute 16/minute 122/68 Weight 113.4 kg Ludivina Fontaine PA-C 10/03/2018 7:31 PM Signed Subjective HPI HPI Daniel Carballo is a 58 year old male [...] and sore throat. Respiratory: Positive for cough ("I'm not coughing as bad as I was [...] Status:Closed by LUDIVINA FONTAINE on 10/03/18 Normal [facility] PROGRESSon 10-03-2018 Protein mass conc HNO ID: [id number] Author: Ludivina (Teofilo) aDvid Service: ? Author Type: Physician Channeler Runner Type: Progress Notes Filed: 10/03/2018 7:31 PM Note Text: Subjective HPI HPI Daniel Carballo is a 58 year old male [...] and sore throat. Respiratory: Positive for cough ("I'm not coughing as bad as I was [...] with the plan. Ludivina Fontaine PA-C Normal [facility] MRI PROSTATE WO/W IVCONon Protein mass conc * * *Final Report* * * DATE OF EXAM: Jun 03 2018 10:10AM QBM [id number] - MRI PROSTATE WO/W IVCON / PROCEDURE REASON: ELEVATED PSA * * * * Physician Interpretation * * * * EXAMINATION: MRI PELVIS WITHOUT AND WITH CONTRAST (MULTIPARAMETRIC PROSTATE MRI): 06/03/2018 CLINICAL HISTORY: 57-year-old man elevated PSA, being evaluated for prostate cancer. Previous biopsy: Negative 2013. PSA: 11.7 ng/mL (2019) 10 ng/mL in 2016. Prior therapy: None. TECHNIQUE: Multiparametric MRI of the prostate and pelvis performed on a 3T (Caro[employer]) MR system utilizing a torso phased array coil. Sequences obtained: Sagittal, axial and coronal high resolution T2-WI with small pxtci-te-jgio; Axial diffusion weighted images with multiple B-values and creation of ADC-maps; Dynamic contrast enhanced T1-weighted images through the prostate were also obtained before, during and after the administration of intravenous gadolinium. Subsequently, larger field of view 3D T1 weighted axial images were obtained through the pelvis. Prostate dimension, volume and pharmacokinetics were obtained using a semi-automated software ([email or web address]). M: MRPro_2 Contrast: IV administration of 20 [...] FOR CLINICALLY SIGNIFICANT PROSTATE CANCER. NO LYMPHADENOPATHY. 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: TIEN Transcribe Date/Time: Jun 03 2018 10:28A Dictated by : CALLIE ASHTON MD This examination was interpreted and the report reviewed and electronically signed by: CARIN CASON MD on Jun 03 2018 12:14PM EST [id number] Normal [facility] PROGRESSon 06-03-2018 Protein mass conc HNO ID: [id number] Author: David Lockwood Mri-T Service: (none) Author Type: (none) Type: Progress Notes Filed: 06/03/2018 9:59 AM Note Text: Radiology Service Progress Note PATIENT NAME: Daniel Carballo DATE OF SERVICE: June 03, 2018 [...] Mri-T June 03, 2018 9:59 AM Normal [facility] Protein mass conc HNO ID: [id number] Author: Dedrick (Mauro) MAURO Garcia Service: Nursing Author Type: Registered Nurse [...] Intact SIGNATURE: Dedrick Garcia RN PATIENT NAME: Daniel Carballo DATE: June 03, 2018 TIME: 8:51 AM Normal [facility] Lab Report: Lipid Profileon 03-30-2017 Cholesterol 180 mg/dL Invalid Interpretation Code 200 [employer] Work Phone: [phone] HDL Cholesterol 35 mg/dL Low [employer] Work Phone: [phone] LDL Cholesterol 107 mg/dL Invalid Interpretation Code 0-130 [employer] Work Phone: [phone] Triglyceride 192 mg/dL Invalid Interpretation Code [employer] Work Phone: [phone] very low density lipoproteins 38 mg/dL Invalid Interpretation Code 5-40 [employer] Work Phone: [phone] Lab Report: Liver Profileon 03-30-2017 Alanine aminotransferase (ALT) 25 U/L Invalid Interpretation Code 12-78 [employer] Work Phone: [phone] Albumin 3.8 g/dL Invalid Interpretation Code 3.4-5.0 [employer] Work Phone: [phone] Alkaline phosphatase (ALP) 68 U/L Invalid Interpretation Code 45-117 [employer] Work Phone: [phone] Aspartate aminotransferase (AST) 22 U/L Invalid Interpretation Code 15-37 [facility] Work Phone: [phone] Bilirubin (direct) 0.10 mg/dL Invalid Interpretation Code 0.00-0.30 [facility] Work Phone: [phone] Bilirubin (total) 0.50 mg/dL Invalid Interpretation Code 0.20-1.00 [facility] Work Phone: [phone] Globulin 3.8 g/dL Invalid Interpretation Code 2.2-4.2 [facility] Work Phone: [phone] Protein 7.6 g/dL Invalid Interpretation Code 6.4-8.2 [facility] Work Phone: [phone] Lab Report: PSA,Total - Katt al Screenon 03-01-2017 PSA,TOT SCREEN 8.33 ng/mL High 0.00-4.00 [facility] Work Phone: [phone] Lab Report: Basic Metabolic Profile (BMP)on 12-17-2016 Anion gap 7 mmol/L Invalid Interpretation Code 5-15 [facility] Work Phone: [phone] Anion gap molar conc 7 mmol/L 5-15 [facility] Work Phone: [phone] Calcium mass conc 8.9 mg/dL Invalid Interpretation Code 8.5-10.1 [facility] Work Phone: [phone] Chloride molar conc 105 mmol/L Invalid Interpretation Code 98-107 [facility] Work Phone: [phone] CO2 27.0 mmol/L Invalid Interpretation Code 21.0-32.0 [facility] Work Phone: [phone] CO2 ppres (BldV) 27.0 mmol/L 21.0-32.0 [facility] Work Phone: [phone] Creatinine mass conc 0.93 mg/dL Invalid Interpretation Code 0.70-1.30 [facility] Work Phone: [phone] eGFR (non-black) 107 mL/min/{1.73_m2} Invalid Interpretation Code >60 [facility] Work Phone: [phone] EST GFR - AA 107 mL/min >60 [facility] Work Phone: [phone] GFR/1.73 sq M predicted among non-blacks MDRD vol rate/area (S/P/Bld) 88 mL/min/{1.73_m2} Invalid Interpretation Code >60 [facility] Work Phone: [phone] Glucose mass conc 129 mg/dL High 70-110 [facility] Work Phone: [phone] Potassium molar conc 3.5 mmol/L Invalid Interpretation Code 3.5-5.1 [facility] Work Phone: [phone] Sodium molar conc 139 mmol/L Invalid Interpretation Code 136-145 [facility] Work Phone: [phone] Urea nitrogen mass conc 8 mg/dL Invalid Interpretation Code 7-18 [facility] Work Phone: [phone] Urea nitrogen/Creatinine mass ratio 8.6 RATIO Low 10-20 [facility] Work Phone: [phone] Lab Report: Basic Metabolic Profile (BMP)on 11-21-2016 Anion gap 7 mmol/L Invalid Interpretation Code 5-15 [facility] Work Phone: [phone] BUN/Creatinine Ratio 12.5 RATIO Invalid Interpretation Code 10-20 [facility] Work Phone: [phone] Calcium 8.9 mg/dL Invalid Interpretation Code 8.5-10.1 [facility] Work Phone: [phone] Chloride 105 mmol/L Invalid Interpretation Code 98-107 [facility] Work Phone: [phone] CO2 28.0 mmol/L Invalid Interpretation Code 21.0-32.0 [facility] Work Phone: [phone] Creatinine 1.04 mg/dL Invalid Interpretation Code 0.70-1.30 [facility] Work Phone: [phone] eGFR (non-black) 78 mL/min/{1.73_m2} Invalid Interpretation Code >60 [facility] Work Phone: [phone] eGFR (non-black) 94 mL/min/{1.73_m2} Invalid Interpretation Code >60 [facility] Work Phone: [phone] Glucose 108 mg/dL Invalid Interpretation Code 70-110 [facility] Work Phone: [phone] Potassium 3.4 mmol/L Low 3.5-5.1 [facility] Work Phone: [phone] Sodium 140 mmol/L Invalid Interpretation Code 136-145 [facility] Work Phone: [phone] Urea nitrogen 13 mg/dL Invalid Interpretation Code 7-18 [facility] Work Phone: [phone] Lab Report: CBC W/Diff, Auto matedon 11-21-2016 Absolute Neut 7.4 X10 3/UL Invalid Interpretation Code 2.0-7.7 [facility] Work Phone: [phone] Basophils/100 leukocytes 0.6 % Invalid Interpretation Code 0-1 [facility] Work Phone: [phone] Basophils/100 WBC (Bld) 0.6 % 0-1 [facility] Work Phone: [phone] Eosinophils/100 leukocytes 3.0 % Invalid Interpretation Code 0-5 [facility] Work Phone: [phone] Eosinophils/100 WBC (Bld) 3.0 % 0-5 [facility] Work Phone: [phone] Erythrocyte distribution width Ratio (RBC) 42.5 fL 35.1-43.9 [facility] Work Phone: [phone] Erythrocyte distribution width Ratio (RBC) 14.1 % 11.6-14.6 [facility] Work Phone: [phone] Erythrocytes (RBC) 4.81 10*6/uL Invalid Interpretation Code 4.6-6.2 [facility] Work Phone: [phone] Hematocrit (HCT) 40.0 % Invalid Interpretation Code 40-54 [facility] Work Phone: [phone] Hematocrit Volume Fraction (Bld) 40.0 % 40-54 [facility] Work Phone: [phone] Hemoglobin (HGB) 13.3 g/dL Invalid Interpretation Code 13.0-16.5 [facility] Work Phone: [phone] Immature granulocytes #/vol (Bld) 0.600 % 0.0-0.9 [facility] Work Phone: [phone] immature granulocytes, percentage of total cells, blood 0.600 % Invalid Interpretation Code 0.0-0.9 [facility] Work Phone: [phone] Immature granulocytes/100 WBC (Bld) 0.600 % Invalid Interpretation Code 0.0-0.9 [facility] Work Phone: [phone] Lymphocytes 3.02 X10 3/UL Invalid Interpretation Code 0.83-4.51 [facility] Work Phone: [phone] Lymphocytes #/vol (Bld) 3.02 X10 3/UL 0.83-4.51 [facility] Work Phone: [phone] Lymphocytes/100 leukocytes 25.3 % Invalid Interpretation Code 19-41 [facility] Work Phone: [phone] Lymphocytes/100 WBC (Bld) 25.3 % 19-41 [facility] Work Phone: [phone] MCH 27.7 pg Invalid Interpretation Code 27.0-32.0 [facility] Work Phone: [phone] MCH Entitic mass (RBC) 27.7 pg 27.0-32.0 Bl [facility] Work Phone: [phone] MCHC 33.3 G/GL Invalid Interpretation Code 32-36 [facility] Work Phone: [phone] MCHC mass conc (RBC) 33.3 G/GL 32-36 [facility] Work Phone: [phone] MCV 83.2 fL Invalid Interpretation Code 80-94 [facility] Work Phone: [phone] MCV Entitic volume (RBC) 83.2 fL 80-94 [facility] Work Phone: [phone] Monocytes/100 leukocytes 8.7 % Invalid Interpretation Code 0-10 [facility] Work Phone: [phone] Monocytes/100 WBC (Bld) 8.7 % 0-10 [facility] Work Phone: [phone] neutrophil count, blood 7.4 X10 3/UL Invalid Interpretation Code 2.0-7.7 [facility] Work Phone: [phone] Neutrophils #/vol (Bld) 7.4 X10 3/UL 2.0-7.7 [facility] Work Phone: [phone] Neutrophils/100 leukocytes 61.8 % Invalid Interpretation Code 47-70 [facility] Work Phone: [phone] Neutrophils/100 WBC (Bld) 61.8 % 47-70 [facility] Work Phone: [phone] Platelet mean volume Entitic volume (Bld) 9.9 fL 6.2-12.0 [facility] Work Phone: [phone] Platelets 341 10*3/mm3 Invalid Interpretation Code 150-450 [facility] Work Phone: [phone] Platelets #/vol (Bld) 341 10*3/mm3 150-450 [facility] Work Phone: [phone] PMV by Sheldon 9.9 fL Invalid Interpretation Code 6.2-12.0 [facility] Work Phone: [phone] RBC #/vol (Bld) 4.81 10*6/uL 4.6-6.2 [facility] Work Phone: [phone] RDW SD 42.5 fL Invalid Interpretation Code 35.1-43.9 [facility] Work Phone: [phone] RDW-CA 14.1 % Invalid Interpretation Code 11.6-14.6 [facility] Work Phone: [phone] red blood cell distribution width, size density 42.5 fL Invalid Interpretation Code 35.1-43.9 [facility] Work Phone: [phone] WBC #/vol (Bld) 12.0 10*3/uL High 4.4-11.0 [facility] Work Phone: [phone] WBC (Leukocytes) 12.0 10*3/uL High 4.4-11.0 [facility] Work Phone: [phone] Lab Report: Hemoglobin A1con 11-21-2016 HbA1c 6.3 % Invalid Interpretation Code 4.2-6.3 [facility] Work Phone: [phone] Lab Report: Lipid Profileon 11-21-2016 Cholesterol 149 mg/dL Invalid Interpretation Code 200 [facility] Work Phone: [phone] HDL Cholesterol 33 mg/dL Low [facility] Work Phone: [phone] LDL Cholesterol 82 mg/dL Invalid Interpretation Code 0-130 [facility] Work Phone: [phone] Triglyceride 168 mg/dL Invalid Interpretation Code [facility] Work Phone: [phone] very low density lipoproteins 34 mg/dL Invalid Interpretation Code 5-40 [facility] Work Phone: [phone] Lab Report: T4 Free Directon 11-21-2016 Thyroxine (T4) free 1.02 ng/dL Invalid Interpretation Code 0.76-1.46 [facility] Work Phone: Lab Report: Thyroid Stim Hor monica (TSH)on 11-21-2016 Thyroid stimulating hormone (TSH) 3.30 u[iU]/mL Invalid Interpretation Code 0.358-3.74 [facility] Work Phone: Office Visit: New Pt. Visito n 11-06-2016 Documentation of current medications (procedure) Done Invalid Interpretation Code [facility] Fall risk assessment No Invalid Interpretation Code [facility] Protein mass conc Done [facility] Work Phone: Tobacco smoking status AZIS Tobacco smoking status NHIS Invalid Interpretation Code [facility] Work Phone: Tobacco smoking status AZIS Former smoker [facility] Work Phone: Tobacco use [facility] Former smoker Invalid Interpretation Code [facility] Office Visiton 09-10-2016 Documentation of current medications (procedure) Done Invalid Interpretation Code [facility] Lab Report: Basic Metabolic Profile (BMP)on 08-31-2016 Anion gap 9 mmol/L Invalid Interpretation Code -15 [facility] Work Phone: [phone] Anion gap [Moles/Vol] 9 mmol/L -15 [facility] Work Phone: [phone] BUN/Creatinine Ratio 15.2 RATIO Invalid Interpretation Code 10-20 [facility] Work Phone: [phone] Calcium 9.0 mg/dL Invalid Interpretation Code 8.5-10.1 [facility] Work Phone: [phone] Chloride 102 mmol/L Invalid Interpretation Code 98-107 [facility] Work Phone: [phone] CO2 27.0 mmol/L Invalid Interpretation Code 21.0-32.0 [facility] Work Phone: [phone] CO2 (BldV) [Partial pressure] 27.0 mmol/L 21.0-32.0 [facility] Work Phone: [phone] Creatinine 0.92 mg/dL Invalid Interpretation Code 0.70-1.30 [facility] Work Phone: [phone] eGFR (non-black) 109 mL/min/{1.73_m2} Invalid Interpretation Code >60 [facility] Work Phone: [phone] eGFR (non-black) 90 mL/min/{1.73_m2} Invalid Interpretation Code >60 [facility] Work Phone: [phone] EST GFR - AA 109 mL/min >60 [facility] Work Phone: [phone] Glucose 95 mg/dL Invalid Interpretation Code 70-110 [facility] Work Phone: [phone] Glucose [Mass/Vol] 95 mg/dL 70-110 [facility] Work Phone: [phone] Potassium 3.9 mmol/L Invalid Interpretation Code 3.5-5.1 [facility] Work Phone: [phone] Sodium 138 mmol/L Invalid Interpretation Code 136-145 [facility] Work Phone: [phone] Urea nitrogen 14 mg/dL Invalid Interpretation Code 7-18 [facility] Work Phone: [phone] Office Visiton 03-10-2016 Dietary management education, guidance, and counseling (procedure) yes Invalid Interpretation Code [facility] Work Phone: [phone] Documentation of current medications (procedure) Done Invalid Interpretation Code [facility] Work Phone: [phone] Tobacco smoking status NHIS Former smoker [facility] Work Phone: [phone] Tobacco use [facility] Former smoker Invalid Interpretation Code [facility] Work Phone: [phone] Lab Report: Lipid Profileon 02-28-2016 Cholesterol 171 mg/dL Invalid Interpretation Code 200 [facility] Work Phone: [phone] HDL Cholesterol 36 mg/dL Low [facility] Work Phone: [phone] LDL Cholesterol 99 mg/dL Invalid Interpretation Code 0-130 [facility] Work Phone: [phone] Triglyceride 182 mg/dL Invalid Interpretation Code [facility] Work Phone: [phone] very low density lipoproteins 36 mg/dL Invalid Interpretation Code 5-40 [facility] Work Phone: [phone] Lab Report: Liver Profileon 02-28-2016 Alanine aminotransferase (ALT) 23 U/L Invalid Interpretation Code 12-78 [employer] Work Phone: [phone] Albumin 3.7 g/dL Invalid Interpretation Code 3.4-5.0 [employer] Work Phone: [phone] Alkaline phosphatase (ALP) 64 U/L Invalid Interpretation Code 45-117 [employer] Work Phone: [phone] ALP (Bld) [Catalytic activity/Vol] 64 U/L 45-117 [employer] Work Phone: [phone] Aspartate aminotransferase (AST) 15 U/L Invalid Interpretation Code 15-37 [employer] Work Phone: [phone] Bilirubin (direct) 0.05 mg/dL Invalid Interpretation Code 0.00-0.30 [employer] Work Phone: [phone] Bilirubin (total) 0.30 mg/dL Invalid Interpretation Code 0.20-1.00 [employer] Work Phone: [phone] Globulin 3.7 g/dL High 2.3-3.5 [employer] Work Phone: [phone] Globulin (S) [Mass/Vol] 3.7 g/dL High 2.3-3.5 [employer] Work Phone: [phone] Protein 7.4 g/dL Invalid Interpretation Code 6.4-8.2 [employer] Work Phone: [phone] Office Visiton 02-11-2015 General cardiovascular disease 10Y risk [#] Start.D'Agostino 6 % Invalid Interpretation Code [employer] Work Phone: [phone] Protein mass conc yes [employer]on [facility] Work Phone: Smoking cessation education (procedure) yes Invalid Interpretation Code [employer] Work Phone: [phone] Office Visiton 03-27-2014 cardiac risk group B Invalid Interpretation Code [employer] Work Phone: [phone] Lab Report: [place]en 4 GE use only - for [employer] import when terms are not otherwise specified 6.48 ng/ml High 0.0-4.0 [employer] Work Phone: [phone] PSAD 6.48 ng/ml High 0.0-4.0 [employer] Work Phone: [phone] Replaced Document: [place] Observationson 02-13-2014 EKG QRS axis -25 deg Invalid Interpretation Code [employer] Work Phone: [phone] electrocardiogram interpretation 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 - T-abnormality -Possible lateral ischemia. 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 - T-abnormality -Possible lateral ischemia. ABNORMAL Invalid Interpretation Code [employer] Work Phone: [phone] P [place] 32 deg Invalid Interpretation Code [employer] Work Phone: [phone] P wave axis, electrocardiogram 32 deg Invalid Interpretation Code [employer] Work Phone: [phone] TX Interval 158 ms Invalid Interpretation Code [employer] Work Phone: [phone] TX interval, electrocardiogram 158 ms Invalid Interpretation Code [employer] Work Phone: [phone] Pulse (Heart Rate) 64 /min Invalid Interpretation Code [employer] Work Phone: [phone] QRS axis, electrocardiogram -25 deg Invalid Interpretation Code [employer] Work Phone: [phone] QRS Duration 86 ms Invalid Interpretation Code [employer] Work Phone: [phone] QRS duration, electrocardiogram 86 ms Invalid Interpretation Code [employer] Work Phone: [phone] QT Interval new path ms Invalid Interpretation Code [employer] Work Phone: [phone] QT interval, electrocardiogram new path ms Invalid Interpretation Code [facility] Work Phone: [phone] T [place] 134 deg Invalid Interpretation Code [facility] Work Phone: [phone] T wave axis, electrocardiogram 134 deg Invalid Interpretation Code [facility] Work Phone: [phone] Vital Signs Date Time Vital Sign Value Performing Clinician Facility 01-03-2025 12:02-0400 Body height 180.[address] Fatuma Jung MD Work Phone: [facility] 01-03-2025 12:02-0400 Body mass index (BMI) [Ratio] 34.2 kg/m2 Dr. Fatuma Jung MD Work Phone: [facility] 01-03-2025 12:02-0400 Body weight 111.[address] Fatuma Jung MD Work Phone: [facility] 01-03-2025 12:02-0400 Diastolic blood pressure 74 mm[Hg] Dr. Fatuma Jung MD Work Phone: [facility] 01-03-2025 12:02-0400 Heart rate 51 /min Dr. Fatuma Jung MD Work Phone: [facility] 01-03-2025 12:02-0400 Respiratory rate 18 /min Dr. Fatuma Jung MD Work Phone: [facility] 01-03-2025 12:02-0400 Systolic blood pressure 137 mm[Hg] Dr. Fatuma Jung MD Work Phone: [facility] 10-19-2024 08:54-0400 Body height 180.[address] Fatuma Jung MD Work Phone: [facility] 10-19-2024 08:54-0400 Body mass index (BMI) [Ratio] 33.9 kg/m2 Dr. Fatuma Jung MD Work Phone: [facility] 10-19-2024 08:54-0400 Body weight 110.[address] Fatuma Jung MD Work Phone: [facility] 10-19-2024 08:54-0400 Diastolic blood pressure 64 mm[Hg] Dr. Fatuma Jung MD Work Phone: [facility] 10-19-2024 08:54-0400 Heart rate 66 /min Dr. Fatuma Jung MD Work Phone: [facility] 10-19-2024 08:54-0400 Respiratory rate 18 /min Dr. Fatuma Jung MD Work Phone: [facility] 10-19-2024 08:54-0400 Systolic blood pressure 119 mm[Hg] Dr. Fatuma Jung MD Work Phone: [facility] 06-22-2022 08:18-0500 Body height 180.[address] Fatuma Jung Work Phone: [facility] 06-22-2022 08:17-0500 Body mass index (BMI) [Ratio] 34.8 kg/m2 Dr. Fatuma Jung Work Phone: [facility] 06-22-2022 08:17-0500 Body weight 113.[address] Fatuma Jung Work Phone: [facility] 06-22-2022 08:17-0500 Diastolic blood pressure 78 mm[Hg] Dr. Fatuma Jung Work Phone: [facility] 06-22-2022 08:17-0500 Heart rate 90 /min Dr. Fatuma Jung Work Phone: [facility] 06-22-2022 08:17-0500 Respiratory rate 18 /min Dr. Fatuma Jung Work Phone: [facility] 06-22-2022 08:17-0500 SaO2% (BldA) [Mass fraction] 99 % Dr. Fatuma Jung Work Phone: [facility] 06-22-2022 08:17-0500 Systolic blood pressure 136 mm[Hg] Dr. Fatuma Jung Work Phone: [facility] 12-03-2021 09:03-0400 Body height 180.[address] Fatuma Jung Work Phone: [facility] Work Phone: 12-03-2021 09:03-0400 Body mass index (BMI) [Ratio] 33.9 kg/m2 Dr. Fatuma Jung Work Phone: [facility] Work Phone: 12-03-2021 09:03-0400 Body temperature 97.2 [degF] Dr. Fatuma Jung Work Phone: [facility] Work Phone: 12-03-2021 09:03-0400 Body weight 110.[address] Fatuma Jung Work Phone: [facility] Work Phone: 12-03-2021 09:03-0400 Diastolic blood pressure 72 mm[Hg] Dr. Fatuma Jung Work Phone: [facility] Work Phone: 12-03-2021 09:03-0400 Heart rate 57 /min Dr. Fatuma Jung Work Phone: [facility] Work Phone: 12-03-2021 09:03-0400 Respiratory rate 16 /min Dr. Fatuma Jung Work Phone: [facility] Work Phone: 12-03-2021 09:03-0400 SaO2% (BldA) [Mass fraction] 99 % Dr. Fatuma Jung Work Phone: [facility] Work Phone: 12-03-2021 09:03-0400 Systolic blood pressure 130 mm[Hg] Dr. Fatuma Jung Work Phone: [facility] Work Phone: 07-11-2021 09:10-0400 Body height 180.[address] Fatuma Jung Work Phone: [facility] Work Phone: 07-11-2021 09:10-0400 Body mass index (BMI) [Ratio] 35.4 kg/m2 Dr. Fatuma Jung Work Phone: [facility] Work Phone: 07-11-2021 09:10-0400 Body weight 115.[address] Fatuma Jung Work Phone: [facility] Work Phone: 07-11-2021 09:10-0400 Diastolic blood pressure 75 mm[Hg] Dr. Fatuma Jung Work Phone: [facility] Work Phone: 07-11-2021 09:10-0400 Heart rate 65 /min Dr. Fatuma Jung Work Phone: [facility] Work Phone: 07-11-2021 09:10-0400 Respiratory rate 18 /min Dr. Fatuma Jung Work Phone: [facility] Work Phone: 07-11-2021 09:10-0400 SaO2% (BldA) [Mass fraction] 95 % Dr. Fatuma Jung Work Phone: [facility] Work Phone: 07-11-2021 09:10-0400 Systolic blood pressure 137 mm[Hg] Dr. Fatuma Jung Work Phone: [facility] Work Phone: 11-06-2016 14:07-040 BMI (Body Mass Index) 36.84 kg/m2 Fatuma Jung MD [facility] 11-06-2016 14:0400 BP Diastolic 62 mm[Hg] Fatuma Jung MD [facility] 11-06-2016 14:0400 BP Systolic 156 mm[Hg] Fatuma Jung MD [facility] 11-06-2016 14:0400 Height 176.53 cm Fatuma Jung MD [facility] 11-06-2016 14:040 Pulse (Heart Rate) 61 /min Fatuma Jung MD [facility] 11-06-2016 14: Weight 114.82 kg Fatuma Jung MD [facility] 09-10-2016 14:270400 BMI (Body Mass Index) 35.59 kg/m2 Dara Allan [facility] Work Phone: 09-10-2016 14:270400 Body weight 116.58 kg Dara Allan [facility] Work Phone: 09-10-2016 14:27-0400 BP Diastolic 62 mm[Hg] Dara Allan [facility] Work Phone: 09-10-2016 14:27-0400 BP Systolic 138 mm[Hg] Dara Allan [facility] Work Phone: 09-10-2016 14:27-0400 Height 180.97 cm Dara Allan [facility] Work Phone: 09-10-2016 14:27-0400 Pulse (Heart Rate) 64 /min Dara Allan [facility] Work Phone: 09-10-2016 14:27-0400 Respiratory Rate 18 /min Dara Allan [facility] Work Phone: 09-10-2016 14:27-0400 Weight 116.58 kg Colleen Doan [facility] 03-10-2016 09:47-0500 BMI (Body Mass Index) 35.31 kg/m2 Patrick Carnes MD [facility] Work Phone: 03-10-2016 09:47-0500 BP Diastolic 68 mm[Hg] Patrick Carnes MD [facility] Work Phone: 03-10-2016 09:47-0500 BP Systolic 116 mm[Hg] Patrick Carnes MD [facility] Work Phone: 03-10-2016 09:47-0500 BSA (Body Surface Area) 2.35 m2 Patrick Carnes MD [facility] Work Phone: 03-10-2016 09:47-0500 Height 180.97 cm Patrick Carnes MD [facility] Work Phone: 03-10-2016 09:47-0500 Pulse (Heart Rate) 64 /min Patrick Carnes MD [facility] Work Phone: 03-10-2016 09:47-0500 Respiratory Rate 18 /min Patrick Carnes MD [facility] Work Phone: 03-10-2016 09:47-0500 Weight 115.67 kg Patrick Carnes MD [facility] Work Phone: 02-13-2014 11:30-0400 Heart rate 64 /min Dara Allan [facility] Work Phone: 03-18-2012 16:09-0500 Body Temperature 98.7 [degF] Patrick Carnes MD [facility] Work Phone: 03-18-2012 16:09-0500 Pulse Oximetry 98 % Patrick Carnes MD [facility] Work Phone: Encounters Encounter Date Encounter Type Care Provider Facility Start: 02-02-2025 ambulatory Brian Michelle Facility:[facility] Start: 01-11-2025 ambulatory Fatuma Albarran ty:[facility] Start: 01-11-2025 Registered Referred Brian Michelle [employer] -Cardiovascular Services Work Phone: Start: 01-03-2025 End: 01-03-[address] Fatuma Jung MD Work Phone: -Laboratory Start: 01-03-2025 End: 01-03-2025 Patient encounter procedure Brian Michelle [employer] -Laboratory Work Phone: Start: 01-03-2025 End: 01-03-2025 Patient encounter procedure Brian Michelle [employer] -[facility] Work Phone: Start: 01-03-2025 End: 01-03-[address] Fatuma Jung MD Work Phone: -[facility] Start: 01-03-2025 End: 01-03-2025 ambulatory Fatuma Jung Facility:[facility] Start: 12-08-2024 End: 12-08-[address] Fatuma Jung MD Work Phone: -Laboratory Start: 12-08-2024 End: 12-08-2024 Patient encounter procedure Lyla Lawson -Laboratory Work Phone: Start: 12-08-2024 End: 12-08-2024 ambulatory Fatuma Jung Facility:[facility] Start: 10-19-2024 End: 10-19-2024 Patient encounter procedure Nu Ye [employer] -[facility] Work Phone: Start: 10-19-2024 End: 10-19-[address] Fatuma Jung MD Work Phone: -[facility] Start: 05-28-2023 End: 05-28-2023 ambulatory [facility] Work Phone: Start: 05-28-2023 End: 05-28-2023 Patient encounter procedure [facility]-Labor[facility] Work Phone: Start: 06-22-2022 End: 06-22-[address] Fatuma Jung Work Phone: [facility] Start: 06-19-2022 End: 06-19-[address] Fatuma Jung Work Phone: [facility] Work Phone: Start: 06-19-2022 End: 06-19-[address] [facility]: 05-06-2022 End: 05-06-2022 ambulatory [facility] Work Phone: Start: 05-06-2022 End: 05-06-2022 [facility] Start: 12-03-2021 End: 12-03-[address] Fatuma Jung Work Phone: [facility] Work Phone: Start: 12-03-2021 End: 12-03-2021 Encounter for general adult medical examination without abnormal findings Dr. Fatuma Jung Work Phone: [facility] Start: 12-03-2021 End: 12-03-[address] Fatuma Jung Work Phone: [facility] Start: 07-14-2021 Non-patient / Non-visit Dr. Ramses Jung Work Phone: [facility] Start: 07-14-2021 End: 07-14-[address] Fatuma Jung Work Phone: [facility]-Cardiovas[facility] Services Start: 07-11-2021 End: 07-11-[address] Fatuma Jung Work Phone: [facility] Start: 06-21-2021 End: 06-21-[address] Fatuma Jung Work Phone: [facility]-Laboratory Start: 04-22-2021 End: 04-22-[address] Fatuma Jung Work Phone: [facility]-Laboratory Start: 04-16-2021 End: 04-16-[address] Fatuma Jung Work Phone: [facility] Start: 01-13-[address] Pepito Jung Work Phone: [facility] Start: 05-31-[address] Pepito Jung Work Phone: [facility] Procedures Date Procedure Procedure Detail Performing Clinician Start: 12-08-2024 Assay of prostate sp ecific antigen total Dr. Fatuma Jung MD Work Phone: Comment on above: This test was perfor med using the [employer] tPSA method. Measured values of a patient sample can vary depending on the testing procedure used. PSA values determined on patient samples by different testing procedures cannot be used interchangeably. If there is a change in PSA assays while monitoring therapy, sequential testing should be performed to confirm baseline values. Start: 12-17-2016 End: 12-17-2016 *BMP Praful Conklin MANAGER [facility] Start: 12-17-2016 End: 12-17-2016 *BMP Praful Conklin MANAGER [facility]IV[employer] Start: 11-20-2016 End: 11-23-2016 *BMP Fatuma Flores [...] MD Work Phone: Start: 02-11-2015 End: 02-11-2015 SARAN Patrick Carnes MD Work Phone: Start: 02-11-2015 [...] 1996 panel - Serum or Plasma Patrick Carens MD Work Phone: Start: 07-18-2014 End: 07-23-2014 [...] MD Work Phone: Start: 01-29-2014 End: 01-29-2014 DJN Patrick Carnes MD Work Phone: Start: 01-29-2014 End: 01-29-2014 Echocardiography Patrick Carnes MD Work Phone: Start: 01-29-2014 End: 02-05-2014 Lipid panel [AGGREGATE] Patrick Carnes MD Work Phone: Start: 01-29-2014 End: 02-23-2014 Stress Echocardiogram (treadmill) Patirck Carnes MD Work Phone: Plan of Treatment Date Care Activity Detail Author Start: 01-03-2025 Cardiac event recording [facility] Start: 01-03-2025 T4 free measurement [facility] Start: 01-03-2025 Thyroid stimulating hormone measurement [facility] Start: 01-03-2025 End: 01-03-2025 Evaluation of diagnostic study results [facility] Start: 03-29-2017 End: 03-29-2017 Appointment Appointment [facility] Work Phone: Start: 02-28-2017 End: 03-03-2016 *Hepatic Function Panel *Hepatic Function Panel [facility] Work Phone: Start: 02-28-2017 End: 03-03-2016 Lipid panel [AGGREGATE] *[facility] Work Phone: Start: 02-28-2017 End: 03-03-2016 *Hepatic Function Panel *Hepatic Function Panel [facility] Work Phone: Start: 02-28-2017 End: 03-03-2016 Lipid panel [AGGREGATE] *Lipid Profile CC PCP [facility] Work Phone: Start: 02-12-2017 End: 02-12-2017 Appointment Appointment [facility] Start: 12-24-2016 End: 12-17-2016 *BMP *BMP [facility] Work Phone: Start: 12-24-2016 End: 12-17-2016 *BMP *BMP [facility] Work Phone: Start: 11-20-2016 End: 11-23-2016 *BMP *BMP [facility] Work Phone: Start: 11-20-2016 End: 11-23-2016 *CBC with Differential *CBC with Differential [facility] Work Phone: Start: 11-20-2016 End: 11-23-2016 *BMP *BMP [facility] Start: 11-20-2016 End: 11-23-2016 *CBC with Differential *CBC with Differential [facility] Start: 11-06-2016 End: 11-06-2016 Appointment Appointment [facility] Start: 11-06-2016 End: 11-06-2016 Follow Up Appt 3 months Follow Up Appt 3 months [facility] Work Phone: Start: 11-06-2016 End: 11-23-2016 Hemoglobin A1c/Hemoglobin.total mass fraction (Bld) *HgA1C [facility] Work Phone: Start: 11-06-2016 End: 11-23-2016 Lipid panel [AGGREGATE] *Lipid Profile [facility] Work Phone: Start: 11-06-2016 End: 11-23-2016 Thyroid stimulating hormone (TSH) *TSH [facility] Work Phone: Start: 11-06-2016 End: 11-23-2016 Thyroxine (T4) free *T4 free [facility] Work Phone: Start: 11-06-2016 End: 11-06-2016 Follow Up Appt 3 months Follow Up Appt 3 months [facility] Start: 11-06-2016 End: 11-23-2016 HbA1c *HgA1C [facility] Start: 11-06-2016 End: 11-23-2016 Lipid panel [AGGREGATE] *Lipid Profile [facility] Start: 11-06-2016 End: 11-23-2016 Thyroid stimulating hormone (TSH) *TSH [facility] Start: 11-06-2016 End: 11-23-2016 Thyroxine (T4) free *T4 free [facility] Start: 09-10-2016 End: 09-10-2016 Appointment Appointment [facility] Work Phone: Start: 09-10-2016 End: 09-10-2016 SKIP VALDIVIA [facility] Work Phone: Start: 09-10-2016 End: 09-10-2016 Follow Up Appt 6 months Follow Up Appt 6 months [facility] Work Phone: Start: 09-10-2016 End: 09-10-2016 SKIP VALDIVIA [facility] Work Phone: Start: 09-10-2016 End: 09-10-2016 Follow Up Appt 6 months Follow Up Appt 6 months [facility] Work Phone: Start: 08-31-2016 End: 08-31-2016 *BMP *BMP [facility] Work Phone: Start: 08-31-2016 End: 08-31-2016 *BMP *BMP [facility] Work Phone: Start: 03-10-2016 End: 09-01-2016 SKIP VALDIVIA [facility] Work Phone: Start: 03-10-2016 End: 09-01-2016 Follow Up Appt 6 months Follow Up Appt 6 months [facility] Work Phone: Start: 03-10-2016 End: 03-10-2016 Stress Echocardiogram (treadmill) Stress Echocardiogram (treadmill) [facility] Work Phone: Start: 03-10-2016 End: 09-01-2016 SKIP VALDIVIA [facility] Work Phone: Start: 03-10-2016 End: 09-01-2016 Follow Up Appt 6 months Follow Up Appt 6 months [facility] Work Phone: Start: 03-10-2016 End: 03-10-2016 Stress Echocardiogram (treadmill) Stress Echocardiogram (treadmill) [facility] Work Phone: Start: 02-06-2016 End: 02-29-2016 *Hepatic Function Panel *Hepatic Function Panel [facility] Work Phone: Start: 02-06-2016 End: 02-29-2016 Lipid panel [AGGREGATE] *Lipid Profile CC PCP [facility] Work Phone: Start: 02-06-2016 End: 02-29-2016 *Hepatic Function Panel *Hepatic Function Panel [facility] Work Phone: Start: 02-06-2016 End: 02-29-2016 Lipid panel [AGGREGATE] *Lipid Profile CC PCP [facility] Work Phone: Start: 07-25-2015 End: 02-11-2015 *Hepatic Function Panel *Hepatic Function Panel [facility] Work Phone: Start: 07-25-2015 End: 02-11-2015 Lipid panel [AGGREGATE] *Lipid Profile CC PCP [facility] Work Phone: Start: 07-25-2015 End: 02-11-2015 *Hepatic Function Panel *Hepatic Function Panel [facility] Work Phone: Start: 07-25-2015 End: 02-11-2015 Lipid panel [AGGREGATE] *Lipid Profile CC PCP [facility] Work Phone: Start: 02-11-2015 End: 02-11-2015 SKIP VALDIVIA [facility] Work Phone: Start: 02-11-2015 End: 02-11-2015 Follow Up Appt 1 year Follow Up Appt 1 year [facility] Work Phone: Start: 02-11-2015 End: 02-11-2015 SKIP VALDIVIA [facility] Work Phone: Start: 02-11-2015 End: 02-11-2015 Follow Up Appt 1 year Follow Up Appt 1 year [facility] Work Phone: Start: 01-30-2015 End: 07-24-2014 *Hepatic Function Panel *Hepatic Function Panel [facility] Work Phone: Start: 01-30-2015 End: 07-24-2014 Lipid panel [AGGREGATE] *Lipid Profile CC PCP [facility] Work Phone: Start: 01-30-2015 End: 07-24-2014 *Hepatic Function Panel *Hepatic Function Panel [facility] Work Phone: Start: 01-30-2015 End: 07-24-2014 Lipid panel [AGGREGATE] *Lipid Profile CC PCP [facility] Work Phone: Start: 09-17-2014 End: 02-11-2015 *Hepatic Function Panel *Hepatic Function Panel [facility] Work Phone: Start: 09-17-2014 End: 02-11-2015 *Hepatic Function Panel *Hepatic Function Panel [facility] Work Phone: Start: 07-18-2014 End: 07-23-2014 Lipid panel [AGGREGATE] *Lipid Profile CC PCP [facility] Work Phone: Start: 07-18-2014 End: 07-23-2014 Lipid panel [AGGREGATE] *Lipid Profile CC PCP [facility] Work Phone: Start: 03-27-2014 End: 01-31-2015 DJHelen VALDIVIA [facility] Work Phone: Start: 03-27-2014 End: 01-31-2015 Follow Up Appt 1 year Follow Up Appt 1 year [facility] Work Phone: Start: 03-27-2014 End: 01-31-2015 DJN SARAN [facility] Work Phone: Start: 03-27-2014 End: 01-31-2015 Follow Up Appt 1 year Follow Up Appt 1 year [facility] Work Phone: Start: 03-01-2014 End: 03-01-2014 Echocardiography Echocardiogram (limited) [facility] Work Phone: Start: 03-01-2014 End: 03-01-2014 Echocardiography Echocardiogram (limited) [facility] Work Phone: Start: 02-13-2014 End: 02-13-2014 SKIP VALDIVIA [facility] Work Phone: Start: 02-13-2014 End: 02-13-2014 Echocardiography Echocardiogram (complete) [facility] Work Phone: Start: 02-13-2014 End: 02-13-2014 Follow Up Appt 1 year Follow Up Appt 1 year [facility] r[facility] Medicine Work Phone: Start: 02-13-2014 End: 02-13-2014 SKIP VALDIVIA [facility] Work Phone: Start: 02-13-2014 End: 02-13-2014 Echocardiography Echocardiogram (complete) [facility] Work Phone: Start: 02-13-2014 End: 02-13-2014 Follow Up Appt 1 year Follow Up Appt 1 year [facility] Work Phone: Start: 01-29-2014 End: 01-30-2014 *Hepatic Function Panel *Hepatic Function Panel [facility] Work Phone: Start: 01-29-2014 End: 01-29-2014 SKIP VALDIVIA [facility] Work Phone: Start: 01-29-2014 End: 01-29-2014 Follow Up Appt 1 year Follow Up Appt 1 year [facility] Work Phone: Start: 01-29-2014 End: 01-30-2014 Lipid panel [AGGREGATE] *Lipid Profile CC PCP [facility] Work Phone: Start: 01-29-2014 End: 01-29-2014 Stress Echocardiogram (treadmill) Stress Echocardiogram (treadmill) [facility] Work Phone: Start: 01-29-2014 End: 01-30-2014 *Hepatic Function Panel *Hepatic Function Panel [facility] Work Phone: Start: 01-29-2014 End: 01-29-2014 DJN DJN [facility] Work Phone: Start: 01-29-2014 End: 01-29-2014 Follow Up Appt 1 year Follow Up Appt [address] [facility] [address] [facility] Work Phone: Start: 01-29-2014 End: 01-30-2014 Lipid panel [AGGREGATE] *Lipid Profile CC PCP [facility] Work Phone: Start: 01-29-2014 End: 01-29-2014 Stress Echocardiogram (treadmill) Stress Echocardiogram (treadmill) [facility] Work Phone: Blood chemistry [facility] CBC W Auto Different ial panel - Blood [facility] Comprehensive metabo lic 2000 panel - Serum or Plasma [facility] Magnesium measurement [facility] Patient Education HYPERLIPIDEMIA , HYPERTENSION,%20AMBULATO RY%20CARE, DYSPNEA, CHOLESTEROL%20AND%20YOUR %20HEALTH [facility] Work Phone: [facility] Immunizations Immunization Date Immunization Notes Care Provider Fa [facility] 03-11-2021 Covid (Pfizer) Dr. Fatuma Jung Work Phone: [facility] 06-14-2019 Flucelvax Quad [id number] (PF) (flu vac qs 2019(4 yr up)CD(PF)) 60 mcg ([address] Fatuma Jung Work Phone: [facility] Work Phone: Payers Date Payer Category Payer Self-pay [id number] 2016 Unknown [id number] Unknown [id number] [id number] Unknown [id number] [id number] [id number] Unknown [id number] [id number] [id number] Unknown [id number] [id number] [id number] Unknown [id number] [id number] [id number] Unknown [id number] [id number] Social History Date Type Detail Facility Start: 07-11-2021 End: 06-22-2022 Tobacco smoking status NHIS Unknown if ever smoked [facility] Start: 02-07-[address] [facility] Start: 02-07-2014 Spouse/ Signif icant Other [facility] Start: 1960 Sex Assigned At Male W [facility] Start: 01-03-2024 Tobacco smoking status NHIS Ex-smoker (finding) [facility] Sex Male [facility] Evaluation note 10-19-2024 Note Date & Type Note Facility 10-19-2024 Evaluation note Diagnosis Onset Date Resolution Atherosclerotic heart disease of [place] coronary artery without angina pectoris chronic October 19, 2024 8:51am Essential hypertension chronic Ju ly 2024 8:51am Hyperlipidemia chronic October 19, 2024 8:51am [facility] Work Phone: Evaluation note 10-19-2024 Note Date & Type Note Facility 10-19-2024 Evaluation note Diagnosis Onset Date Resolution Atherosclerotic heart disease of [place] coronary artery without angina pectoris chronic October 19, 2024 8:51am Essential hypertension chronic Ju ly 2024 8:51am Hyperlipidemia chronic October 19, 2024 8:51am Dizziness acute December 11:20am Atherosclerotic heart disease of [place] coronary artery without angina pectoris chronic January 03, 2025 11:20am Essential hypertension chronic Se ptember 2024 11:20am Hyperlipidemia chronic January 03, 2025 11:20am [facility] [employer] Work Phone: Evaluation note Note Date & Type Note Facility Evaluation note Diagnosis Onset Date Claudication acute Essential hypertension acute Atherosclerotic heart diseas e of [place] coronary artery without angina pectoris chronic Hyperlipidemia chronic [facility] Work Phone: Evaluation note Note Date & Type Note Facility Evaluation note Diagnosis Onset Date Preventative health care acu te [facility] Work Phone: Evaluation note Note Date & Type Note Facility Evaluation note No assessment information availa ble [facility] Work Phone: Evaluation note Note Date & Type Note Facility Evaluation note Diagnosis Onset Date Atherosclerotic heart diseas e of [place] coronary artery without angina pectoris chronic Essential hypertension chron ic Hyperlipidemia chronic Claudication resolved [facility] Work Phone: Evaluation note Note Date & Type Note Facility Evaluation note Diagnosis Onset Date Resolution Atherosclerotic heart disease of [place] coronary artery without angina pectoris chronic October 19, 2024 8:51am Essential hypertension chronic Ju 2024 8:51am Hyperlipidemia chronic October 19, 2024 8:51am [employer] Work Phone: Reason for referral (narrative) Note Date & Type Note Facility Reason for referral (narrative) No reason for referral information available [employer] Work Phone: Summary Purpose Family History No [...] No April 16, 021 9:33am Power of Apprentice Funeral Director No June 13, 2018 9:21am Advance Directive Response Recorded Date/ Time Advance Directives No May 8:21am Living Will No April 16, 021 8:33am Power of Apprentice Funeral Director No June 13, 2018 8:21am Advance Directive Response Recorded Date/ Time Advance Directives No May 9:21am Chief Complaint and Reason for Visit Chief Complaint COVID DRIVE THRU JONI T EORDER 6 M FU CLAUDICATION Reason for Visit Claudication Essential hypertension Atherosclerotic heart disease of [place] coronary artery without angina pectoris Hyperlipidemia Chief Complaint WELLNESS VISIT Reason for Visit Preventative health care Chief Complaint INT LABS 1 Y FU Reason for Visit Atherosclerotic hear t disease of [place] coronary artery without angina pectoris Essential hypertension Hyperlipidemia Claudication Chief Complaint 2 ORDER DRS/E ORDER & PAPER Chief Complaint Admit Date 1 Y FU October 19, 2024 8:51a m Reason for Visit Admit Date Atherosclerotic heart diseas e of [place] coronary artery without angina pectoris October 19, 2024 8:51am Essential hypertension October 19, 2024 8: 51am Hyperlipidemia October 19, 2024 8:51a m Chief Complaint Admit Date 1 Y FU October 19, 2024 8:51a m SOB,dizzy, [facility] Reason for Visit Admit Date Atherosclerotic heart diseas e of [place] coronary artery without angina pectoris October 19, 2024 8:51am Essential hypertension October 19, 2024 8: 51am Hyperlipidemia October 19, 2024 8:51a m Dizziness January 03, 2025 11:20am Atherosclerotic heart diseas e of [place] coronary artery without angina pectoris January 03, 2025 11:20am Essential hypertension January 03, 025 11:20am Hyperlipidemia January 03, 2025 11:20am Chief Complaint Admit Date 1 Y FU October 19, 2024 8:51a m SOB,dizzy, fatigue, see clinical Septemb er 2024 11:20am EORDER January 03, 2025 12:52pm DIZZINESS January 11, 2025 7:56am Additional Source Comments (unrecognized sect ion and content) No Status Records FoundNo Status Records Found INFORMATION SOURCE (unrecogn ized section and content) DATE CREATED AUTHOR 10/04/2018 [facility] DATE CREATED AUTHOR AUTHOR'S ENDER LOU 01/24/2025 [facility] Goals (unrecognized section and content) Goals may [...] Provider, Refer ring Provider Active Brian Michelle PAPER STEAMER, PAPER STEAMER-C Attending Provider Active Team Status: Inactive Member Role Status Dates Dr. Fatuma Jung MD Primary Care Provider Active Brian Michelle PAPER STEAMER, PAPER STEAMER-C Attending Provider, Referring Pro vider Active Team Status: Inactive Member Role Status Dates Dr. Fatuma Jung MD Primary Care Provider Active Dr. Willy Olivas MD Attending Provider, Referr ing Provider Active Brian Michelle PAPER STEAMER, PAPER STEAMER-C Other Provider Active Team Status: Active Member [...] 19, 2024 End: October 19, 2024 Nu eY NP, PAPER STEAMER-C Attending Provider Active Start: October 19, 2024 End: October 19, 2024 Team Status: Active Member Role/Relationship Status Dates Dr. Fatuma Jung MD Primary Care Provider Active Team Status: Inactive Member Role/Relationship Status Dates Dr. Fatuma Jung MD Primary Care Provider Active Start: December 08, 2024 End: December 08, 2024 Lyla Lawson Attending Provider Active Start : December 08, 2024 End: December 08, 2024 Lyla Lawson Referring Provider Active Start : December 08, 2024 End: December 08, 2024 Team Status: Active Member Role/Relationship Status Dates Dr. Fatuma Jung MD Primary care physician Activ e Team Status: Inactive Member Role/Relationship Status Dates Dr. Fatuma Jung MD Primary care physician Activ e Start: October 19, 2024 End: October 19, 2024 Dr. Fatuma Jung MD Referring Provider Active Start: October 19, 2024 End: October 19, 2024 Nu Ye NP, PAPER STEAMER-C Attending physician Active Start: October 19, 2024 End: October 19, 2024 Team Status: Inactive Member Role/Relationship Status Dates Dr. Fatuma Jung MD Primary care physician Activ e Start: December 08, 2024 End: December 08, 2024 Lyla Lawson Attending physician Active Star t: December 08, 2024 End: December 08, 2024 Lyla Lawson Referring Provider Active Start : December 08, 2024 End: December 08, 2024 Team Status: Inactive Member Role/Relationship Status Dates Dr. Fatuma Jung MD Primary care physician Activ e Start: January 03, 2025 End: January 03, 2025 Dr. Fatuma Jung MD Referring Provider Active Start: January 03, 2025 End: January 03, 2025 Brian Michelle PAPER STEAMER, PAPER STEAMER-C Attending physician Active Start: January 03, 2025 End: January 03, 2025 Team Status: Active Member Role/Relationship Status Dates Brian Michelle PAPER STEAMER, PAPER STEAMER-C Primary care physician Active Team Status: Inactive Member Role/Relationship Status Dates Dr. Fatuma Jung MD Primary care physician Activ e Start: January 03, 2025 End: January 03, 2025 Brian Michelle PAPER STEAMER, PAPER STEAMER-C Attending physician Active Start: January 03, 2025 End: January 03, 2025 Brian Michelle PAPER STEAMER, PAPER STEAMER-C Referring Provider Active S tart: January 03, 2025 End: January 03, 2025 Team Status: Active Member Role/Relationship Status Dates Dr. Fatuma Jung MD Primary care physician Activ e Start: January 11, 2025 Brian Michelle PAPER STEAMER, PAPER STEAMER-C Attending physician Active Start: January 11, 2025 Brian Michelle PAPER STEAMER, PAPER STEAMER-C Referring Provider Active S tart: January 11, 2025 FOR RECORDS PERTAINING TO PATIENTS WHO ARE [...] BE BASED ON THE PRIMARY CLINICAL RECORDS. [facility] [employer] [facility]. provides no warranty or guarantee of the accuracy or completeness of information in this document.
== END | disposition home or self-care (01) ==
LOC: CVS 07:59
PROVIDERS: PCP Nurse Practitioner Family; Referring Provider Nurse Practitioner Family; Visit Provider Nurse Practitioner Family
DX: I25.10 Atherosclerotic heart disease of native coronary artery without angina pectoris (principal); R42 Dizziness and giddiness; I10 Essential (primary) hypertension; E78.5 Hyperlipidemia, unspecified
CPT/HCPCS: 93306